=== PATIENT | female | born 1975 | race Caucasian/White ===

== ENCOUNTER → 2017-08-18 11:01 | Outpatient (CLI) | payer OTHER, SELFPAY ==
[2017-08-20 13:05] LABS: HPV Reflexed? NOT INDICATED
== END ==
PROVIDERS: Family Provider Family Medicine; PCP Family Medicine; Visit Provider Obstetrics & Gynecology
DX: Z12.4 Encounter for screening for malignant neoplasm of cervix (principal)
CPT/HCPCS: 88175; G0145

== ENCOUNTER → 2017-09-03 12:52 | Outpatient (CLI) | payer OTHER, SELFPAY ==
--- NOTE | 2017-09-03 12:55 | HPBI_ITS ---
MAMMOGRAPHY - BILATERAL DIAGNOSTIC REASON FOR EXAM: Female, 42 years old. LT BREAST PAIN X 1 MONTH NO SX PERTINENT HISTORY: Non-contributory. TECHNIQUE: Digital bilateral breast naif (3D mammographic acquisition) in the CC and MLO projections. 2-D mediolateral oblique (MLO) and craniocaudad (CC) views of both breasts were obtained. CAD: Full Field Digital Mammography with Computer Added Detection was performed. COMPARISON: Sep 09 2016 7:08am, Aug 16 2015 9:08am FINDINGS: Breast Composition: The breasts are heterogeneously dense, which may obscure small masses. There are no dominant masses or suspicious calcifications. No other significant abnormalities are identified. HPBI/DIAG MAMM W/CAD, BILAT IMPRESSION: Stable bilateral diagnostic mammogram. One year follow-up recommended. (A) ASSESSMENT CATEGORY: BIRADS Category 2: Benign. A letter regarding these results will be sent to the patient by the facility within 30 days. Approximately 10% of breast cancers are not detected by mammography. A normal mammogram should not delay biopsy of a clinically suspicious abnormality. Electronically Signed: Cathi Aparicio MD at 15:09 EDT Tel , Service support ,
--- NOTE | 2017-09-03 13:54 | US_ITS ---
STUDY: ULTRASOUND BREAST - LEFT REASON FOR EXAM: Female, 42 years old. left breast pain TECHNIQUE: Axial and longitudinal images of the LEFT breast were performed with a high resolution ultrasound transducer. COMPARISON: None. FINDINGS: LEFT Breast: There is no ultrasound abnormality in the area of tenderness at the inferior outer aspect of the left breast. US/Breast Limited Unilateral IMPRESSION: There is no ultrasound abnormality in the area of tenderness at the inferior outer aspect of the left breast. ASSESSMENT CATEGORY: BIRADS Category 1: Negative. A letter regarding these results will be sent to the patient by the facility within 30 days. Electronically Signed: Cathi Aparicio MD at 9:58 EDT Tel , Service support ,
== END ==
PROVIDERS: Family Provider Family Medicine; PCP Family Medicine; Visit Provider Obstetrics & Gynecology
DX: N63.20 Unspecified lump in the left breast, unspecified quadrant (principal); N64.4 Mastodynia
CPT/HCPCS: 76642; 77062; 77066; G0279

== ENCOUNTER → 2018-09-29 14:56 | Outpatient (CLI) | payer OTHER, SELFPAY ==
[2018-09-28 12:23] LABS: Hematocrit 39.9 % (37-47); Mean Corp Hgb Conc 32.6 g/gl (32-36); Mean Corpuscular Hgb 29.8 pg (27.0-32.0); Mean Corpuscular Volume 91.5 fL (81-99); Mean Platelet Vol. 9.9 fl (6.2-12.0); Platelet Count 317 K/mm3 (150-450); RBC Distribution Width SD 43.6 fl (35.1-43.9); Red Blood Count 4.36 M/mm3 (4.2-5.4); White Blood Count 9.8 K/mm3 (4.4-11.0)
[2018-09-28 12:26] LABS: Prothrombin Time (Protime)PT. 12.8 SECONDS (11.7-14.9)
[2018-09-28 12:27] LABS: Partial Thromboplast Time 27.1 Seconds (24.1-36.2)
[2018-09-28 12:29] LABS: Scan Indicated on CBC? Y/N NO
[2018-09-28 12:59] LABS: Internal QC Validated? YES +Cl - CLEAR BKGD; Pregnancy, Serum, hCG Quali. NEGATIVE Negative
--- OUTSIDE RECORDS SUMMARY | 2019-01-21 13:11 | XMS RPT_ITS | CCD ---
:1975 External Reference #:[id number] Author Organization [facility] Care Team Providers Name Role Phone LUCY ULRICH (MATERIAL CUTTER) Unavailable Unavailable MALDONADO, S (REHABILITATION TEACHER) Unavailable Unavailable MALDONADO, S (REHABILITATION TEACHER) Unavailable Unavailable [facility], (MATERIAL CUTTER) Unavailable Unavailable [facility], (MATERIAL CUTTER) Unavailable Unavailable [facility], (MATERIAL CUTTER) Unavailable Unavailable [facility] COURT, (MATERIAL CUTTER) Unavailable Unavailable MC COURT, (MATERIAL CUTTER) Unavailable Unavailable CAMPENSA, F. Unavailable Unavailable RAVEN Unavailable Unavailable ALRED Unavailable Unavailable RAVEN Unavailable Unavailable RAVEN Unavailable Unavailable RAVEN Unavailable Unavailable RAVEN Unavailable Unavailable RAVEN Unavailable Unavailable RAVEN Unavailable Unavailable RAVEN Unavailable Unavailable Allergies Reported Allergen Reaction(s) Severity Date of Onset Location LORazepam Translations: [ AOF 09-13-2015 - [facility] LORAZEPAM] [facility] Problems Active Problems Category Problem Name Status Date Location Cardiac dysrhythmias Palpitations Active 05-28-2018 - [facility] ([place] ([address]) Syncope Syncope and collapse Active 2018 - [facility] ([place] ([address]) Unclassified Unknown / UNK(Unknown) Active 12-30-2016 - [facility] (0000 0) Past or Other Problems Category Problem Name Status Date Location Abdominal pain Left lower quadrant Completed 12-30-2016 - [facility] pain [place] (0000 0) Malaise and fatigue Other fatigue Completed 12-22-2016 - [facility] (0000 0) Results Result Name Value Range Unit Interpretation Flag Date Location strep a rapid on 01-01-16 S. pyogenes Ag IA Ql see below Negative Normal 9 [facility] (Unsp spec) (04484) Comment: Result Comment: NEGATIVE (pr esumptive) for Group A Streptococcus antigen. Method: Immunochromatographi c assay. Confirmatory testing to foll ow. Confirmatory testing perform ed at an additional cost. Performed By: #### HEMDF, LA CT3, CMP3, QWAL #### [facility] [address] [place] [address] lactic acid on 2018 Lactate [Moles/Vol] 0.9 0.7-2.0 mmol/L Normal 12-28-2018 [facility] (53544) Comment: Performed By: #### LACT3, HE MOG, CMP3, QWAL #### [facility] [address] [place] [address] hemogram on 2018-12 Erythrocyte distribution 13.3 11.5-14.5 % Normal 12-28 [facility] width (RBC) [Ratio] (48825) Comment: Performed By: #### HEMDF, LA CT3, CMP3, QWAL #### [place] [address] [place] [address] Hematocrit (Bld) [Volume 39.8 35.0-47.0 % Normal 12-28 [facility] fraction] (09113) Comment: Performed By: #### HEMDF, LA CT3, CMP3, QWAL #### [facility] [address] [place] [address] Hemoglobin (Bld) 13.4 11.7-16.0 g/dL Normal 12-28-2018 [facility] [Mass/Vol] (37826) Comment: Performed By: #### HEMDF, LA CT3, CMP3, QWAL #### [facility] [address] [place] [address] MCH (RBC) [Entitic mass] 29.8 26.0-34.0 pg Normal 12-28 [facility] (04801) Comment: Performed By: #### HEMDF, LA CT3, CMP3, QWAL #### [facility] [address] [place] [address] MCHC (RBC) [Mass/Vol] 33.5 32.0-36.0 % Normal 12-29-19 19 [facility] (00610) Comment: Performed By: #### HEMDF, LA CT3, CMP3, QWAL #### [facility] [address] [place] [address] MCV (RBC) [Entitic vol] 88.9 79.0-98.0 fL Normal 2018 [facility] (28242) Comment: Performed By: #### HEMDF, LA CT3, CMP3, QWAL #### [facility] [address] [place] [address] Platelet mean volume (Bld) 8.2 7.4-10.4 fL Normal [facility] [Entitic vol] (71085 ) Comment: Performed By: #### HEMDF, LA CT3, CMP3, QWAL #### [facility] [address] [place] [address] Platelets (Bld) [#/Vol] 308 140-440 10*3/uL Normal 2018 [facility] (65667) Comment: Performed By: #### HEMDF, LA CT3, CMP3, QWAL #### [facility] [address] [place] [address] RBC (Bld) [#/Vol] 4.48 3.80-5.20 10*6/uL Normal 12-28-2018 [facility] (87424) Comment: Performed By: #### HEMDF, LA CT3, CMP3, QWAL #### [facility] [address] [place] [address] WBC (Bld) [#/Vol] 7.9 3.6-10.7 10*3/uL Normal 12-28-2018 [facility] (05451) Comment: Performed By: #### HEMDF, LA CT3, CMP3, QWAL #### [facility] [address] [place] [address] hcg qual preg on 01-01-16 hCG Qual Preg NEGATIVE Normal 12-28-2018 [facility] (03950) Comment: Result Comment: REF RANGE: Negative .... < 3 Questionable Rpt 48-72 Hr Positive ..... > 10 Performed By: #### HEMDF, LA CT3, CMP3, QWAL #### [facility] [address] [place] [address] group a strep screen by pcr on 2018-12-28 Group A Strep Group A Strep Screen by PCR --> Status: F Normal 12-28-2018 [facility] Screen by PCR NOT Detected (00 000) Expected Result: Not Detected Methodology - Real Time PCR (Cepheid) Expected Result: Not Detected Methodology - Real Time PCR (Cepheid) Comment: Performed By: #### HEMDF, LA CT3, CMP3, QWAL #### [employer] [facility] [address] [place] [address] ct soft tissue neck w/ contrast on 2018-12-28 CT Soft Tissue Patient Name: LILI CONCEPCION 12-28-2018 [facility] Contents First Neck w/ System Contrast (0 0000) CT Exam Date/Time 12/28/2018 10:30:[address] Soft Tissue Neck w/ Contrast Ordering Physician DARIAN SHARMA, ROSMERY Dillard Accession Number [id number] CPT4 Codes 44352 (), Q9967 (CT ISOVUE 370MG/[id number]) Reason For Exam right sided swelling concern for abscess Report Examination: CT soft tissue neck Clinical Indication: Right-sided swelling, concern for abscess Comparison: None Findings: Serial axial [address] images were obtained after administrati on of 75 mL of Isovue-370 IV contrast. Examination was viewed in multiple w indows. Evaluation of the base of the brain demonstrates no abnorm al enhancement or gross fluid collection. Paranasal sinuses appear well pneuma tized as do the visualized mastoids. The parotid, submandibular, and other major salivary glands are unremarkable demonstrate no evidence of sialolithiasis, surrounding infla mmation or significant asymmetry. Cutaneous marker placed in the region of interest near the right mandibular angle. Deep to this finding is a prominent lymph node measur ing 1.8 x 0.8 cm, at the upper limits of normal for this location. No evidence of abscess. Other tiny bilateral cervical chain lymph nodes. There is no evidence o f chantale lymphadenopathy within the cervical chain anteriorly or post eriorly or within the supraclavicular regions. There is a small subcutaneous l ymph node seen superficial to the left trapezius muscle measuring 6 x 4 mm. There is no enlargement of the adenoidal or pharyngeal tonsi ls. Nasopharynx, oropharynx, and hypopharynx is within normal limits. There i s no significant airway narrowing. There is no evidence of abscess formation. The thyroid gland is normal in size and configuration and de monstrates no nodularity. Mild pleural thickening in the lung apices. Impression: Prominent borderline size 1.8 x 0.8 cm lymph node in the r egion of interest on the right just posterior to the angle of the mandible. No de finite lymphadenopathy. No evidence of abscess. Report Dictated on Final Dictating Physician: MD BROUSSARD ANTHONY J Signed Date and Time: 12/28/2018 12:57 pm Signed by: MD BROUSSARD ANTHONY J Transcribed Date and Time: 12/28/2018 12:58 comp metabolic panel on 2018-12-28 Calcium [Mass/Vol] 9.6 8.4-10.4 mg/dL Normal 12-28-2018 [facility] (87774) Comment: Performed By: #### HEMDF, LA CT3, CMP3, QWAL #### [facility] [address] [place] [address] ALP [Catalytic activity/Vol] 75 38-126 U/L Normal 0 12-28-2018 [facility] (91785) Comment: Performed By: #### HEMDF, LA CT3, CMP3, QWAL #### [facility] [address] [place] [address] ALT [Catalytic activity/Vol] 29 13-69 U/L Normal 0 12-28-2018 [facility] (17503) Comment: Performed By: #### HEMDF, LA CT3, CMP3, QWAL #### [facility] [address] [place] [address] Anion gap [Moles/Vol] 9 Normal 12-29-19 19 [facility] (80039) Comment: Performed By: #### HEMDF, LA CT3, CMP3, QWAL #### [facility] [address] [place] [address] AST [Catalytic activity/Vol] 28 15-46 U/L Normal 0 12-28-2018 [facility] (81341) Comment: Performed By: #### HEMDF, LA CT3, CMP3, QWAL #### [facility] [address] [place] [address] Bilirubin [Mass/Vol] 0.6 0.2-1.3 mg/dL Normal 9 [facility] (46297) Comment: Performed By: #### HEMDF, LA CT3, CMP3, QWAL #### [facility] [address] [place] [address] CO2 [Moles/Vol] 25 22-30 mmol/L Normal 12-28-2018 [facility] (97646) Comment: Performed By: #### HEMDF, LA CT3, CMP3, QWAL #### [facility] [address] [place] [address] Creatinine [Mass/Vol] 0.59 0.52-1.25 mg/dL Normal 12-29-19 19 [facility] (28850) Comment: Performed By: #### HEMDF, LA CT3, CMP3, QWAL #### [facility] [address] [place] [address] GFR/1.73 sq M > 60.0 >60 mL/min/{1.73_m2} Normal 9 [facility] predicted among Syst em (75558) blacks MDRD (S/P/Bld) [Vol rate/Area] Comment: Performed By: #### HEMDF, LA CT3, CMP3, QWAL #### [facility] [address] [place] [address] GFR/1.73 sq M > 60.0 >60 mL/min/{1.73_m2} Normal 9 [facility] predicted among Syst em (45205) non-blacks MDRD (S/P/Bld) [Vol rate/Area] Comment: Result Comment: Source- MDRD equation with creatinine calibration to IDMS(NKDEP) eGFR not recommended for maria esther g dose adjustment Performed By: #### HEMDF, LA CT3, CMP3, QWAL #### [facility] [address] [place] [address] Glucose [Mass/Vol] 110 70-100 mg/dL High 12-28-2018 [facility] (69394) Comment: Performed By: #### HEMDF, LA CT3, CMP3, QWAL #### [facility] [address] [place] [address] Protein [Mass/Vol] 8.0 6.3-8.2 g/dL Normal 12-28-2018 [facility] (04544) Comment: Performed By: #### HEMDF, LA CT3, CMP3, QWAL #### [facility] [address] [place] [address] Urea nitrogen [Mass/Vol] 18 7-20 mg/dL Normal 12-28 [facility] (34032) Comment: Performed By: #### HEMDF, LA CT3, CMP3, QWAL #### [facility] [address] [place] [address] Potassium [Moles/Vol] 3.8 3.5-5.1 mmol/L Normal 12-29-19 19 [facility] (75717) Comment: Performed By: #### HEMDF, LA CT3, CMP3, QWAL #### [facility] [address] [place] [address] Albumin [Mass/Vol] 4.4 3.5-5.0 g/dL Normal 12-28-2018 [facility] (41818) Comment: Performed By: #### HEMDF, LA CT3, CMP3, QWAL #### [facility] [address] [place] [address] Chloride [Moles/Vol] 106 98-107 mmol/L Normal 9 [facility] (71148) Comment: Performed By: #### HEMDF, LA CT3, CMP3, QWAL #### [facility] [address] [place] [address] Sodium [Moles/Vol] 140 135-145 mmol/L Normal 12-28-2018 [facility] (27886) Comment: Performed By: #### HEMDF, LA CT3, CMP3, QWAL #### [facility] [address] [place] [address] ts gel on 2018-10-14 3 TS GEL ABO Group: Normal 11-04-2018 [facility] (04649) A Rh, Gel: POS Antibody Screen Gel: NEG Comment: Performed By: #### TSGL #### [employer] [facility] [address] [place] [address] surgical pathology on 2018-11-04 Surgical [id number] Normal 11-04-2018 [facility] Pathology [facility] System PATHOLOGY AND (62655 ) LABORATORY MEDICINE [address] [place] [address] FINAL SURGICAL PATHOLOGY REPORT NAME: LILI CONCEPCION : 1975 43 [facility] [id number] LOCATION: [place] [address] PROCEDURE 11/04/2018 DATE: SURGEON: GIRMA HARMON MD RECEIVED 11/04/2018 DATE: ATTENDING: GIRMA HARMON MD REPORT DATE: 11/10/2018 COPIES TO: DIAGNOSIS: HYSTERECTOMY - CERVIX WITH CHRONIC CERVICITIS PROLIFERATIVE ENDOMETRIUM MYOMETRIUM WITH ADENOMYOSIS. SMT/SMT Signature> Heide JENNINGS M.D. CLINICAL INFORMATION: Dysmenorrhea SPECIMEN: UTERUS, WITH/WITHOUT TUBES AND OVARIES GROSS DESCRIPTION: Cervix and uterus Received in formalin is a uterus with attached cervix. The u terus is pink-parnell, glistening, and has areas of operative change. It measures 5.5 x 4 x 2.4 cm and weighs 30 grams. The cervix is pink-parnell , smooth, glistening, and measures 3.3 x 3 cm and contains a partially gapping, patent os. The endocervical canal measures 2 cm in length an d the endometrial cavity measures 2.5 x 1 cm. The endometrium nika ures less than 1 mm in thickness and the myometrium at its thickest me asures 1.2 cm in thickness. Further sectioning does not reveal any hellen sly identifiable abnormalities in the myometrium. Paraprofessional Aide sections are submitted. Cassette summary: 1 anterior cervix; 2 posterior cervix; 3 i s two full thickness sections of anterior endomyometrium; 4 is posterio r endomyometrium. (bits ss, 4) ASJ/JAF Disclaimer: The following statement applies to all immunohistochemistry, in situ hybridization, molecular studi es, and immunofluorescence testing. The use of one or more reagents in the above tests is regula ana as an analyte specific reagent (ASR). These tests were developed a nd their performance characteristics determined by the clinical labor atories of [facility]. They have not been cleared by the [place] Fo od and Drug Administration (FDA). The FDA has determined that such clear ance or approval is not necessary. All the above immunostains were performed on paraffin embedd ed tissue. Appropriate positive and negative controls (where applicable ) were run in parallel with the patient's specimen; these controls show ed expected staining pattern, with acceptable intensity of staining. Immunohistochemical assays have not been validated on decalc ified tissues. Results should be interpreted with caution given th e raised possibility of false negativity on decalcified specimens. Professional Performing Location: [address] [address]. DEPARTMENT OF PATHOLOGY AND LABORATORY MEDICINE [place], [place] [address] op note on Op Note PATIENT: LILI CONCEPCION [facility] (49583) ADMISSION DATE: 11/04/2018 SURGERY DATE: 11/04/2018 DATE OF : 1975 AGE: 43 ADMITTING PHYSICIAN: Girma Harmon MD ATTENDING PHYSICIAN: Girma Harmon MD DICTATING PHYSICIAN: Girma Harmon MD OPERATIVE RECORD Procedure: TOTAL ROBOTIC HYSTERECTOMY. Preoperative Diagnosis: Severe dysmenorrhea, status post endometrial. Postoperative Diagnosis: Severe dysmenorrhea, status post endometrial. Anesthesia: General. Description of Findings: The patient had bilateral normal ov rob, no tubal tissue was noted. Description of Procedure: The patient was identified and bro ught to the operating room and after administration of general anest hesia, underwent a sterile prep and drape in the low lithotomy posi tion. Compression stockings on and running. Time-out was performed . Antibiotics were given. A manipulator was placed in the uter us with a RUPALI ring around the cervix and a Vazquez catheter in the bladd er. Using a knife, a small incision was made in the infraumbilical fol d and using the direct technique, a non-bladed da Zenaida trocar was inserted atraumatically in the abdominal cavity. The abdomen was insu fflated with CO2 and under direct vision, blunt da Zenaida ports were placed in right and left lower quadrant. Trendelenburg was used to dis place the bowel up out of the pelvis and the da Zenaida was docked. The proximal ovarian ligaments and round ligaments were coagulated and di vided allowing the bladder flap to be dissected inferiorly, the ut erine vessels were skeletonized, coagulated, and divided as were t he upper cardinal ligaments down to the top of the RUPALI ring where 360 degree colpotomy incision was then made. The uterus and cervix were removed out through the vagina. The cuff was closed using a running 0 V-Loc. The pelvis was irrigated. Hemostasis was noted. All instrume nts were removed from the abdominal cavity. The da Zenaida was undocked . The trocars were removed. The defects in the skin were closed wi th subcuticular 4-0 Monocryl and Dermabond. All instruments wer e removed from the bladder and the vagina and she was taken to the rec overy room in stable condition with a minimal EBL. [facility] Job ID: [id number] Girma Harmon MD DOD:11/04/2018 10:09 A SA/michealk DOT:11/04/2018 11:12 A Job Number: [id number] Document Number: [id number] cc: Girma Harmon MD [address] [facility] [address] hcg,urine qual on HCG.beta subunit Negative Negative Normal 11-04-2018 [facility] ( test) Ql (U) (84215) Comment: Result Comment: is the most common reason for HCG in urine, although choriocarcinoma, hydatidifor m mole, and certain nontropho- blastic malignancies also re sult in detectable urinary HCG levels. Sensitivity = 20mIU/ mL. Performed By: #### HCGUR ### # [address] [address] culture urine on 31-08-26 CULTURE URINE CULTURE URINE --> Status: F Normal 09-08-2018 [facility] Normal urogenital parsia present. (94135) Comment: Order Comment: Specimen Sour ce Comment:Urine, clean catch Performed By: #### C/UR #### [facility] [address] [place] [address] us pelvis ta/tv on 2018-09-07 US Pelvis TA/TV Patient Name: LILI CONCEPCION al 09-07-2018 [facility] (94522) Ultrasound Exam Date/Time 09/07/2018 18:55:00 EDT Exam US Pelvis TA/TV Ordering Physician DAVID BARROW BETH A. Accession Number [id number] CPT4 Codes 60693 (US Pelvis TA/TV), 61116 (US Transvaginal) Reason For Exam right lower abd pain with adenxal pain right Report Ultrasound pelvis HISTORY: Right lower quadrant pain COMPARISON: CT 09/07/2018 Protocol: Transabdominal and endovaginal scanning was perfor med Uterus measures 5.4 x 2.7 x 3.6 cm. Uterus has a heterogen eous echotexture. There are a few subcentimeter rounded hypoechoic areas in th e uterus which are likely fibroids. Endometrial stripe has a normal thickness o f 4 mm. There is trace fluid in the endometrial cavity. No free fluid in the cul-de-sac. Right ovary measures 2.5 x 1.7 x 1.6 cm. Left ovary measures 2.4 x 1.4 x 2.3 cm. The ovaries have a normal appearance and blood flow. IMPRESSION: A few subcentimeter rounded hypoechoic areas in the uterus which are likely fibroids. There is trace fluid in the endometrial cavity. Report Dictated on Final Dictating Physician: MD AMBROSE MALAY Signed Date and Time: 09/07/2018 8:12 pm Signed by: MD AMBROSE MALAY Transcribed Date and Time: 09/07/2018 8:13 urinalysis,microscopic on 2018-09-07 Bacteria LM.HPF (Urine sed) 1 + Negative Normal [facility] [#/Area] (48763) Comment: Performed By: #### UAMAC, UA CHAKA #### [facility] Contents [facility] [address] [place] [address] Cast, Hyaline 3 0-1 /[LPF] Normal 09-07-2018 [facility] (99724) Comment: Performed By: #### UAMAC, UA CHAKA #### [facility] [address] [place] [address] Epithelial cells LM.HPF TRACE 3-5 Normal 2018 [facility] (Urine sed) [#/Area] (91936) Comment: Performed By: #### UAMAC, UA CHAKA #### [facility] [address] [place] [address] RBC LM.HPF (Urine sed) 5 0-2 /[HPF] Normal 019 [facility] [#/Area] (03848) Comment: Performed By: #### UAMAC, UA CHAKA #### [facility] [address] [place] [address] WBC LM.HPF (Urine sed) 6 0-5 /[HPF] Normal 019 [facility] [#/Area] (89929) Comment: Performed By: #### UAMAC, UA CHAKA #### [facility] [address] [place] [address] urinalysis,macro on 2018-09-07 Appearance (U) CLEAR Clear Normal 09-07-2018 [facility] (06088) Comment: Performed By: #### UAMAC, UA CHAKA #### [facility] [address] [place] [address] Bilirubin,Ur NEG Negative Normal 09-07-2018 [facility] (02454) Comment: Performed By: #### UAMAC, UA CHAKA #### [facility] [address] [place] [address] Color (U) YELLOW Lt. Yellow Normal 09-07-[address] [facility] (56652) Comment: Performed By: #### UAMAC, UA CHAKA #### [facility] [address] [place] [address] Glucose Ql (U) NEG Negative Normal 09-07-2018 [facility] (05329) Comment: Performed By: #### UAMAC, UA CHAKA #### [facility] [address] [place] [address] Ketone,Urine NEG Negative Normal 09-07-2018 [facility] (35940) Comment: Performed By: #### UAMAC, UA CHAKA #### [facility] [address] [place] [address] Nitrite Ql (U) NEG Negative Normal 09-07-2018 [facility] (73038) Comment: Performed By: #### UAMAC, UA CHAKA #### [facility] [address] [place] [address] Occult Blood,Ur 1 + Negative {RBC}/uL Normal 09-07-2018 [facility] (61440) Comment: Performed By: #### UAMAC, UA CHAKA #### [facility] [address] [place] [address] pH (U) 6.5 5.0-8.0 Normal 09-07-2018 [facility] (88866) Comment: Performed By: #### UAMAC, UA CHAKA #### [facility] [address] [place] [address] Protein (U) [Mass/Vol] NEG Negative mg/dL Normal 019 [facility] (95649) Comment: Performed By: #### UAMAC, UA CHAKA #### [facility] [address] [place] [address] Specific Tabor,Urine 1.017 1.005-1.030 Normal 09-07 [facility] (26364) Comment: Performed By: #### UAMAC, UA CHAKA #### [facility] [address] [place] [address] Urobilinogen Qn (U) 0.2 0-1 mg/dL Normal 09-07-2018 [facility] (49431) Comment: Performed By: #### UAMAC, UA CHAKA #### [facility] [address] [place] [address] WBC (Bld) [#/Vol] TRACE Negative Normal 09-07-2018 [facility] (39078) Comment: Performed By: #### UAMAC, UA CHAKA #### [facility] [address] [place] [address] lactic acid on 2018 Lactate [Moles/Vol] 0.7 0.7-2.0 mmol/L Normal 09-07-2018 [facility] (55230) Comment: Performed By: #### HEMDF, LA CT3, CMP3, QWAL #### [facility] [address] [place] [address] hemogram w/ autodiff on 2018-09-07 Abs Baso Cnt 0.0 0.0-0.2 10*3/uL Normal 09-07-2018 [facility] (97593) Comment: Performed By: #### HEMDF, LA CT3, CMP3, QWAL #### [facility] [address] [place] [address] Abs Neutrophile Cnt 3.6 1.8-7.0 10*3/uL Normal 09-07-2018 [facility] (45316) Comment: Performed By: #### HEMDF, LA CT3, CMP3, QWAL #### [facility] [address] [place] [address] Basophils/100 WBC (Bld) 0.5 0.0-2.0 % Normal 2018 [facility] (65228) Comment: Performed By: #### HEMDF, LA CT3, CMP3, QWAL #### [facility] [address] [place] [address] Eosinophils (Bld) [#/Vol] 0.1 0.0-0.5 10*3/uL Normal 08-14 [facility] (66348) Comment: Performed By: #### HEMDF, LA CT3, CMP3, QWAL #### [facility] [address] [place] [address] Eosinophils/100 WBC (Bld) 1.7 1.0-6.0 % Normal 08-14 [facility] (88218) Comment: Performed By: #### HEMDF, LA CT3, CMP3, QWAL #### [facility] [address] [place] [address] Erythrocyte distribution 12.9 11.5-14.5 % Normal 09-07 [facility] width (RBC) [Ratio] (91294) Comment: Performed By: #### HEMDF, LA CT3, CMP3, QWAL #### [facility] [address] [place] [address] Granulocytes/100 WBC (Bld) 55.6 40.0-80.0 % Normal [facility] (78602) Comment: Performed By: #### HEMDF, LA CT3, CMP3, QWAL #### [facility] [address] [place] [address] Hematocrit (Bld) [Volume 36.3 35.0-47.0 % Normal 09-07 [facility] fraction] (59130) Comment: Performed By: #### HEMDF, LA CT3, CMP3, QWAL #### [facility] [address] [place] [address] Hemoglobin (Bld) 12.2 11.7-16.0 g/dL Normal 09-07-2018 [facility] [Mass/Vol] (38244) Comment: Performed By: #### HEMDF, LA CT3, CMP3, QWAL #### [facility] [address] [place] [address] Lymphocytes (Bld) [#/Vol] 2.3 1.0-4.3 10*3/uL Normal 08-14 [facility] (11545) Comment: Performed By: #### HEMDF, LA CT3, CMP3, QWAL #### [facility] [address] [place] [address] Lymphocytes/100 WBC (Bld) 36.4 20.0-40.0 % Normal 08-14 [facility] (37663) Comment: Performed By: #### HEMDF, LA CT3, CMP3, QWAL #### [facility] [address] [place] [address] MCH (RBC) [Entitic mass] 30.3 26.0-34.0 pg Normal 09-07 [facility] (38903) Comment: Performed By: #### HEMDF, LA CT3, CMP3, QWAL #### [facility] [address] [place] [address] MCHC (RBC) [Mass/Vol] 33.5 32.0-36.0 % Normal 09-08-19 19 [facility] (46222) Comment: Performed By: #### HEMDF, LA CT3, CMP3, QWAL #### [facility] [address] [place] [address] MCV (RBC) [Entitic vol] 90.6 79.0-98.0 fL Normal 2018 [facility] (16242) Comment: Performed By: #### HEMDF, LA CT3, CMP3, QWAL #### [facility] [address] [place] [address] Monocytes (Bld) [#/Vol] 0.4 0.0-0.8 10*3/uL Normal 2018 [facility] (35719) Comment: Performed By: #### HEMDF, LA CT3, CMP3, QWAL #### [facility] [address] [place] [address] Monocytes/100 WBC (Bld) 5.8 2.0-10.0 % Normal 2018 [facility] (85305) Comment: Performed By: #### HEMDF, LA CT3, CMP3, QWAL #### [facility] [address] [place] [address] Platelet mean volume (Bld) 7.7 7.4-10.4 fL Normal [facility] [Entitic vol] (36728 ) Comment: Performed By: #### HEMDF, LA CT3, CMP3, QWAL #### [facility] [address] [place] [address] Platelets (Bld) [#/Vol] 266 140-440 10*3/uL Normal 2018 [facility] (12858) Comment: Performed By: #### HEMDF, LA CT3, CMP3, QWAL #### [facility] [address] [place] [address] RBC (Bld) [#/Vol] 4.01 3.80-5.20 10*6/uL Normal 09-07-2018 [facility] (89526) Comment: Performed By: #### HEMDF, LA CT3, CMP3, QWAL #### [facility] [address] [place] [address] WBC (Bld) [#/Vol] 6.4 3.6-10.7 10*3/uL Normal 09-07-2018 [facility] (37392) Comment: Performed By: #### HEMDF, LA CT3, CMP3, QWAL #### [facility] [address] [place] [address] hcg qual preg on 31-08-25 hCG Qual Preg NEGATIVE Normal 09-07-2018 [facility] (07686) Comment: Result Comment: REF RANGE: Negative .... < 3 Questionable Rpt 48-72 Hr Positive ..... > 10 Performed By: #### HEMDF, LA CT3, CMP3, QWAL #### [facility] [address] [place] [address] ct abdomen/pelvis w/ contrast on 2018-09-07 CT Abdomen/Pelvis Patient Name: LILI CONCEPCION 09-07-2018 [id number] Exam Date/Time 09/07/2018 19:28:[address] Abdomen/Pelvis w/ IV Contrast (IV Onl Ordering Physician DAVID BARROW BETH A. Accession Number [id number] CPT4 Codes 79433 (CT Abdomen/Pelvis w/ IV Contrast (IV Onl), Q9967 (CT ISOVUE [id number]/[id number]) Reason For Exam right lower quad pain Report CT ABDOMEN AND PELVIS WITH CONTRAST CLINICAL INDICATION: right lower quad pain TECHNIQUE: CT scan of the abdomen and pelvis, with IV cont rast. Multiplanar reformations. COMPARISON: None. FINDINGS: Abdomen: Visualized lung bases grossly unremarkable. Gallbladder surgically absent, with biliary duct prominence probably postsurgical. Liver without significant abnormality. Spleen without significant abnormality. Pancreas without significant abnormality. Kidneys without significant abnormality. Adrenal glands without significant abnormality. Pelvis: Incomplete or nondistention and variable bowel wall/fold thi ckening in the descending and rectosigmoid colon, but without significant m esenteric fat stranding. Remainder of bowel grossly unremarkable. Appendix surgically absent. No significant, free peritoneal fluid or apparent adenopathy . Abdominal aorta is nonaneurysmal. Small, cystic focus in right adnexa measuring approximately 1 cm may represent follicular change versus focal, fluid-filled bowel loop. Axial skeleton grossly unremarkable. IMPRESSION: 1. Findings which may be due to incomplete or nondistention versus nonspecific postinflammatory change in the left colon. Follow-up may be warranted. 2. Postsurgical change. Report Dictated on Workstation: COLEMAN Final Dictating Physician: MD TERRY WENDELL Signed Date and Time: 09/07/2018 7:43 pm Signed by: MD TERRY WENDELL Transcribed Date and Time: 09/07/2018 7:44 comp metabolic panel on 2018-09-07 Calcium [Mass/Vol] 9.4 8.4-10.4 mg/dL Normal 09-07-2018 [facility] (64372) Comment: Performed By: #### HEMDF, LA CT3, CMP3, QWAL #### [facility] [address] [place] [address] Glucose [Mass/Vol] 107 70-100 mg/dL High 09-07-2018 [facility] (80107) Comment: Performed By: #### HEMDF, LA CT3, CMP3, QWAL #### [facility] [address] [place] [address] ALP [Catalytic activity/Vol] 49 38-126 U/L Normal 0 09-07-2018 [facility] (73611) Comment: Performed By: #### HEMDF, LA CT3, CMP3, QWAL #### [facility] [address] [place] [address] ALT [Catalytic activity/Vol] 38 13-69 U/L Normal 0 09-07-2018 [facility] (59863) Comment: Performed By: #### HEMDF, LA CT3, CMP3, QWAL #### [facility] [address] [place] [address] Anion gap [Moles/Vol] 11 Normal 09-08-19 19 [facility] (37209) Comment: Performed By: #### HEMDF, LA CT3, CMP3, QWAL #### [facility] [address] [place] [address] AST [Catalytic activity/Vol] 19 15-46 U/L Normal 0 09-07-2018 [facility] (15658) Comment: Performed By: #### HEMDF, LA CT3, CMP3, QWAL #### [facility] [address] [place] [address] Bilirubin [Mass/Vol] 0.3 0.2-1.3 mg/dL Normal 9 [facility] (78495) Comment: Performed By: #### HEMDF, LA CT3, CMP3, QWAL #### [facility] [address] [place] [address] CO2 [Moles/Vol] 29 22-30 mmol/L Normal 09-07-2018 [facility] (73145) Comment: Performed By: #### HEMDF, LA CT3, CMP3, QWAL #### [employer] [facility] [address] [place] [address] Creatinine [Mass/Vol] 0.55 0.52-1.25 mg/dL Normal 09-08-19 19 [facility] (86499) Comment: Performed By: #### HEMDF, LA CT3, CMP3, QWAL #### [employer] [facility] [address] [place] [address] GFR/1.73 sq M > 60.0 >60 mL/min/{1.73_m2} Normal 9 [facility] Contents First predicted among Syst em (44301) blacks MDRD (S/P/Bld) [Vol rate/Area] Comment: Performed By: #### HEMDF, LA CT3, CMP3, QWAL #### [employer] [facility] [address] [place] [address] GFR/1.73 sq M > 60.0 >60 mL/min/{1.73_m2} Normal 9 [facility] Contents First predicted among Syst em (52866) non-blacks MDRD (S/P/Bld) [Vol rate/Area] Comment: Result Comment: Source- MDRD equation with creatinine calibration to IDMS(NKDEP) eGFR not recommended for maria esther g dose adjustment Performed By: #### HEMDF, LA CT3, CMP3, QWAL #### [employer] [facility] [address] [place] [address] Protein [Mass/Vol] 7.2 6.3-8.2 g/dL Normal 09-07-2018 [facility] (10805) Comment: Performed By: #### HEMDF, LA CT3, CMP3, QWAL #### [employer] [facility] [address] [place] [address] Urea nitrogen [Mass/Vol] 14 7-20 mg/dL Normal 09-07 [facility] (59076) Comment: Performed By: #### HEMDF, LA CT3, CMP3, QWAL #### [employer] [facility] [address] [place] [address] Potassium [Moles/Vol] 3.7 3.5-5.1 mmol/L Normal 09-08-19 19 [facility] (31044) Comment: Performed By: #### HEMDF, LA CT3, CMP3, QWAL #### [facility] [address] [place] [address] Albumin [Mass/Vol] 4.2 3.5-5.0 g/dL Normal 09-07-2018 [facility] (08980) Comment: Performed By: #### HEMDF, LA CT3, CMP3, QWAL #### [facility] [address] [place] [address] Chloride [Moles/Vol] 100 98-107 mmol/L Normal 9 [facility] (75056) Comment: Performed By: #### HEMDF, LA CT3, CMP3, QWAL #### [facility] [address] [place] [address] Sodium [Moles/Vol] 140 135-145 mmol/L Normal 09-07-2018 [facility] (87864) Comment: Performed By: #### HEMDF, LA CT3, CMP3, QWAL #### [facility] [address] [place] [address] tsh on 2018-05-28 Thyrotropin Qn 1.22 0.36-3.74 mcIU/mL Normal 05-28-2018 [facility] ([place]) (0000 0) Comment: Performed By: #### KRISTIN, UAMIC AO ####[address] [place], [place] [address] cbc on 2018 Erythrocyte distribution 13.5 11.5-14.5 % Normal 05-12 [facility] width Auto Ratio (RBC) [facility] ([place]) (95443) Comment: Performed By: #### UA, UAMIC AO ####[address] [place], [place] [address] Hematocrit Auto Volume 40.4 37.0-47.0 % Normal 018 [facility] Fraction (Bld) ([place]) (21817) Comment: Performed By: #### UA, UAMIC AO ####[address] [place], [place] [address] Hemoglobin mass conc 13.1 12.0-16.0 G/dL Normal 8 [facility] ([place]) (43978) Comment: Performed By: #### UA, UAMIC AO ####[address] [place], [place] [address] MCH Auto Entitic mass 29.2 27.0-31.2 pg Normal 05-12-20 18 [facility] (RBC) ([place]) (0000 0) Comment: Performed By: #### UA, UAMIC AO ####[address] [place], [place] [address] MCHC Auto mass conc 32.3 33.0-37.0 G/dL Low 2018 [facility] (RBC) ([place]) (0000 0) Comment: Performed By: #### UA, UAMIC AO ####[address] [place], [place] [address] MCV Auto Entitic volume 90.2 80.0-94.0 fL Normal 2017 [facility] (RBC) ([place]) (0000 0) Comment: Performed By: #### UA, UAMIC AO ####[address] [place], [place] [address] Platelet mean volume Auto 8.6 7.4-10.4 fL Normal - [facility] Entitic volume ([facility]) ([place]) (60514) Comment: Performed By: #### UA, UAMIC AO ####[address] [place], [place] [address] Platelets Auto #/vol 334 130-400 10 3/mcL Normal 8 [facility] ([facility] ([place]) (16125) Comment: Performed By: #### UA, UAMIC AO ####[address] [place], [place] [address] RBC Auto #/vol 4.48 4.20-5.40 10 6/mcL Normal 2018 [facility] ([place]) (69239) Comment: Performed By: #### UA, UAMIC AO ####[address] [place], [place] [address] WBC Auto #/vol 8.00 4.60-10.80 10 3/mcL Normal 2018 [facility] ([place]) (63576) Comment: Performed By: #### UA, UAMIC AO ####[address] [place], [place] [address] bmp on 2018 Calcium mass conc 9.1 8.4-10.2 mg/dL Normal 2018 [facility] ([place]) (65182) Comment: Performed By: #### UA, UAMIC AO ####[address] [place], [place] [address] Chloride molar conc 104 98-107 mmol/L Normal 2018 [facility] ([place]) (0000 0) Comment: Performed By: #### UA, UAMIC AO ####[address] [place], [place] [address] CO2 molar conc 28 22-29 mmol/L Normal 2018 [facility] ([place]) (81564) Comment: Performed By: #### UA, UAMIC AO ####[address] [place], [place] [address] Creatinine mass conc 0.60 0.55-1.02 mg/dL Normal 8 [facility] ([place]) (0000 0) Comment: Performed By: #### UA, UAMIC AO ####[address] [place], [place] [address] Electrolyte Balance 8.0 mEq/L Normal 2018 [facility] ([place]) (00602) Comment: Performed By: #### UA, UAMIC AO ####[address] [place], [place] [address] Glucose mass conc 101 70-105 mg/dL Normal 2018 [facility] ([place]) (57749) Comment: Performed By: #### UA, UAMIC AO ####[address] [place], [place] [address] Potassium molar conc 4.6 3.5-5.1 mmol/L Normal 8 [facility] ([place]) (0000 0) Comment: Performed By: #### UA, UAMIC AO ####[address] [place], [place] [address] Sodium molar conc 140 136-145 mmol/L Normal 2018 A Replaced by [facility] ([place]) (96874) Comment: Performed By: #### UA, UAMIC AO ####[address] [place], [place] [address] Urea nitrogen mass conc 17 7-18 mg/dL Normal 2017 [facility] ([place]) (0000 0) Comment: Performed By: #### UA, UAMIC AO ####[address] [place], [place] [address] Urea nitrogen/Creatinine mass 28 7-27 ratio High 2018 [facility] ([place]) (25517) Comment: Performed By: #### UA, UAMIC AO ####[address] [place], [place] [address] .neuabs on Neutrophil, Absolute 5.20 2.85-6.16 10 3/mcL Normal 8 [facility] ([place]) (42603) Comment: Performed By: #### UA, UAMIC AO ####[address] [place], [place] [address] .gfr on 2018 GFR 132 ml/min/1.73sqm Normal 04-16 [facility] ([place]) (0000 0) Comment: Result Comment: GFR Populati on mean for , Non- Americans Ages 20-29 = 116 m L/min/1.73 sq.m. Ages 30-39 = 107 mL/min/1.73 sq.m. Ages 40-49 = 99 mL/min /1.73 sq.m. Ages 50-59 = 93 mL/min/1.73 sq.m. Ages 60-69 = 85 mL/min/1.73 sq.m. Ages 70+ = 75 mL/min/1.73 sq.m.Chronic Kidney Disease: Less than 60 mL/min/1.73 square metersEnd Stage Renal Disease: Less than 15 mL/min /1.73 square meters Performed By: #### UA, UAMIC AO ####[address] [place], [place] [address] GFR Non- 109 ml/min/1.73sqm Normal 2018 [facility] ([place]) (03595) Comment: Result Comment: GFR Populati on mean for , Non- Americans Ages 20-29 = 116 m L/min/1.73 sq.m. Ages 30-39 = 107 mL/min/1.73 sq.m. Ages 40-49 = 99 mL/min /1.73 sq.m. Ages 50-59 = 93 mL/min/1.73 sq.m. Ages 60-69 = 85 mL/min/1.73 sq.m. Ages 70+ = 75 mL/min/1.73 sq.m.Chronic Kidney Disease: Less than 60 mL/min/1.73 square metersEnd Stage Renal Disease: Less than 15 mL/min /1.73 square meters Performed By: #### UA, UAMIC AO ####[address] [place], [place] [address] .auto diff on 05-12 Ammonia mass conc 0.40 0.15-1.00 10 3/mcL Normal 2018 A [facility] () [facility] ([place]) (08040) Comment: Performed By: #### UA, UAMIC AO ####[address] [place], [place] [address] Basophils Auto #/vol 0.00 0.00-0.19 10 3/mcL Normal 8 [facility] (d) [facility] ([place]) (51023) Comment: Performed By: #### UA, UAMIC AO ####[address] [place], [place] [address] Basophils/100 WBC Auto (d) 0.3 0.0-2.5 % Normal 1 07-12-2017 [facility] ([place]) (0000 0) Comment: Performed By: #### UA, UAMIC AO ####[address] [place], [place] [address] Eosinophils Auto #/vol 0.10 0.00-0.40 10 3/mcL Normal 018 [facility] 1928[facility]1983) (57537) Comment: Performed By: #### UA, UAMIC AO ####[address] [place], [place] [address] Eosinophils/100 WBC Auto 1.1 0.0-7.0 % Normal 05-12 [facility] ([place]) (08848) Comment: Performed By: #### UA, UAMIC AO ####[address] [place], [place] [address] Lymphocytes Auto #/vol 2.20 0.77-3.85 10 3/mcL Normal 018 [facility]) (32530) Comment: Performed By: #### UA, UAMIC AO ####[address] [place], [place] [address] Lymphocytes/100 WBC Auto 28.3 10.0-50.0 % Normal 05-12 [facility]) (08073) Comment: Performed By: #### UA, UAMIC AO ####[address] [place], [place] [address] Monocytes/100 WBC Auto ([facility]) 5.5 1.7-13.0 % Normal 1 07-12-2017 [facility] ([place]) (66739) Comment: Performed By: #### UA, UAMIC AO ####[address] [place], [place] [address] Neutrophils/100 WBC Auto 64.8 37.0-80.0 % Normal 05-12 [facility] ([place]) (05207) Comment: Performed By: #### UA, UAMIC AO ####[address] [place], [place] [address] xr chest 2 views on 2018-03-18 XR CHEST 2 VIEWS ORIGINALXR CHEST 2 VIEWS Normal 03-18-2018 [facility] CLINICAL STATEMENT: [facility] ([place]) pain. COMPARISON: (0 0000) 12/02/2013 FINDINGS: The cardiac and mediastinal contours are within normal limits. There is no significant pulmonary vascular congestion, focal consolidation, pleural effusion, or pneumothorax. There is mild biapical pleural thickening. No acute fracture is seen. IMPRESSION: No acute radiographic findings. I have personally reviewed the images of this examination and agree with the resident's findings and interpretation. Interpreted By: Kiersten Blackreliminary Report By: Everardo Pryor MDElectronically Signed By: Kiersten Black MD Dictated Date: 03/18/2018 6:40:15 PM Prelim Date: 03/18/2018 6:41:44 PM Sign Date: 03/18/2018 6:55:43 PM trop on 2018-03-18 Troponin I.cardiac <0.020 0.000-0.040 ng/mL Normal 8 [facility] ([place]) (18672) Comment: Result Comment: Troponin I r eference range: 0.00-0.040 ng/mL Negative and non-diagnostic. >0.040 ng/mL Consistent with cardiac damage, increased clinical risk and possibilit y of myocardial infarction. Serial measurements, a rise & fall in test result s, clinical history, appropriate symptoms and/or ECG changes may help assess possibility of NM. *Other non-acute coronary syndrome conditions such as CHF, myocarditis, pulmonary emboli, sepsis and cardiac surgery could result in myocardial damage and increased troponin levels. Performed By: #### CBC, ADIF F, ANEU ####[address] [place], [place] [address]#### B MP, TROP, GFR ####[address] [address] dimer on 2018-03-18 Fibrin D-dimer FEU IA <200 0-230 ug/mL Normal 03-18-20 18 [facility] (d) ([place]) (10694) Comment: Result Comment: The result o f the D-Dimer test should be evaluated in the context of all the clinical and laboratory data available.In those instances where the laboratory result does not agree with the clinical evaluation, additional tests shouldbe pe rformed accordingly.If the D-Dimer result is used to exclude DVT or PE, t he recommended cutoff value is less than 230 ng/mL. The D-Dimerresult ladonna uld not be used alone to rule in DVT/PE, but should be used in conjunctio n with a clinical pretest probability (PTP)assessment model to exc lude venous thromboembolism (VTE) in outpatients suspected of deep venous thr ombosis (DVT) and pulmonary embolism (PE). Performed By: #### DIMER ### #[address] [place] [id number] cbc on 2018-03-18 Erythrocyte distribution 13.0 11.5-14.5 % Normal 03-18 [facility] width Auto Ratio (RBC) [facility] ([place]) (77051) Comment: Performed By: #### CBC, ADIF F, ANEU ####[address] [place] [address]#### B MP, TROP, GFR ####[place] [address] Hematocrit Auto Volume 37.8 37.0-47.0 % Normal 018 [facility] Fraction (Bld) ([place]) (24589) Comment: Performed By: #### CBC, ADIF F, ANEU ####[address] [address]#### B MP, TROP, GFR ####[address] [address] Hemoglobin mass conc 12.3 12.0-16.0 G/dL Normal 8 [facility] (Bld) [facility] ([place]) (53525) Comment: Performed By: #### CBC, ADIF F, ANEU ####[address] [place] [address]#### B MP, TROP, GFR ####[address] [address] MCH Auto Entitic mass 29.0 27.0-31.2 pg Normal 03-18-20 18 [facility] (RBC) ([place]) (0000 0) Comment: Performed By: #### CBC, ADIF F, ANEU ####[address] [place] [address]#### B MP, TROP, GFR ####[place] [address] MCHC Auto mass conc 32.7 33.0-37.0 G/dL Low 03-18-2018 [facility] (RBC) ([place]) (0000 0) Comment: Performed By: #### CBC, ADIF F, ANEU ####[address] [address]#### B MP, TROP, GFR ####[place] [address] MCV Auto Entitic volume 88.7 80.0-94.0 fL Normal 2017 [facility] (RBC) ([place]) (0000 0) Comment: Performed By: #### CBC, ADIF F, ANEU ####[address] [address]#### B MP, TROP, GFR ####[place] [address] Platelet mean volume Auto 7.6 7.4-10.4 fL Normal [facility] Entitic volume (Bld) ([place]) (79064) Comment: Performed By: #### CBC, ADIF F, ANEU ####[address] [place] [address]#### B MP, TROP, GFR ####[place] [address] Platelets Auto #/vol 301 130-400 10 3/mcL Normal 8 [facility] ([facility]) [facility] ([place]) (22581) Comment: Performed By: #### CBC, ADIF F, ANEU ####[place] [address]#### B MP, TROP, GFR ####[place] [address] RBC Auto #/vol 4.25 4.20-5.40 10 6/mcL Normal 03-18-2018 [facility] ([facility]) [facility] ([place]) (33979) Comment: Performed By: #### CBC, ADIF F, ANEU ####[address] [address]#### B MP, TROP, GFR ####[place] [address] WBC Auto #/vol 12.30 4.60-10.80 10 3/mcL High 03-18-2018 [facility] ([facility] ([place]) (65046) Comment: Performed By: #### CBC, ADIF F, ANEU ####[address] [address]#### B MP, TROP, GFR ####[place] [address] bmp on 2018-03-18 Calcium mass conc 9.7 8.4-10.2 mg/dL Normal 03-18-2018 A Replaced by [facility] ([place]) (43201) Comment: Performed By: #### CBC, ADIF F, ANEU ####[place] [address]#### B MP, TROP, GFR ####[place] [address] Chloride molar conc 101 98-107 mmol/L Normal 03-18-2018 [facility] ([place]) (0000 0) Comment: Performed By: #### CBC, ADIF F, ANEU ####[place] [address]#### B MP, TROP, GFR ####[place] [address] CO2 molar conc 28 22-29 mmol/L Normal 03-18-2018 [facility] ([place]) (09059) Comment: Performed By: #### CBC, ADIF F, ANEU ####[place] [address]#### B MP, TROP, GFR ####[place] [address] Creatinine mass conc 0.76 0.55-1.02 mg/dL Normal 8 [facility] ([place]) (0000 0) Comment: Performed By: #### CBC, ADIF F, ANEU ####[address] [address]#### B MP, TROP, GFR ####[place] [address] Electrolyte Balance 10.0 mEq/L Normal 03-18-2018 [facility] ([place]) (18399) Comment: Performed By: #### CBC, ADIF F, ANEU ####[address] [address]#### B MP, TROP, GFR ####[place] [address] Glucose mass conc 93 70-105 mg/dL Normal 03-18-2018 A Replaced by [facility] ([place]) (78395) Comment: Performed By: #### CBC, ADIF F, ANEU ####[place] [address]#### B MP, TROP, GFR ####[place] [address] Potassium molar conc 3.5 3.5-5.1 mmol/L Normal [facility] ([place]) (0000 0) Comment: Performed By: #### CBC, ADIF F, ANEU ####[place] [id number]#### B MP, TROP, GFR ####[place] [address] Sodium molar conc 139 136-145 mmol/L Normal 03-18-2018 A Replaced by [facility] ([place]) ([id number]) Comment: Performed By: #### CBC, ADIF F, ANEU ####[place] [id number]#### B MP, TROP, GFR ####[place] [address] Urea nitrogen mass conc 15 7-18 mg/dL Normal 2017 [facility] ([place]) (0000 0) Comment: Performed By: #### CBC, ADIF F, ANEU ####[address] [address]#### B MP, TROP, GFR ####[address] [address] Urea nitrogen/Creatinine mass 20 7-27 ratio Normal 03-18-2018 [facility] ([place]) ([id number]) Comment: Performed By: #### CBC, ADIF F, ANEU ####[place] [address] [place], [place] [address]#### B MP, TROP, GFR ####[address] [address] .neuabs on Neutrophil, Absolute 8.90 2.85-6.16 10 3/mcL High 8 [facility] ([place]) (36717) Comment: Performed By: #### CBC, ADIF F, ANEU ####[address] [address]#### B MP, TROP, GFR ####[address] [address] .gfr on 2018-03-18 GFR 101 ml/min/1.73sqm Normal [facility] ([place]) (0000 0) Comment: Result Comment: GFR Populati on mean for , Non- Americans Ages 20-29 = 116 m L/min/1.73 sq.m. Ages 30-39 = 107 mL/min/1.73 sq.m. Ages 40-49 = 99 mL/min /1.73 sq.m. Ages 50-59 = 93 mL/min/1.73 sq.m. Ages 60-69 = 85 mL/min/1.73 sq.m. Ages 70+ = 75 mL/min/1.73 sq.m.Chronic Kidney Disease: Less than 60 mL/min/1.73 square metersEnd Stage Renal Disease: Less than 15 mL/min /1.73 square meters Performed By: #### CBC, ADIF F, ANEU ####[facility] [place], [place] [address]#### B MP, TROP, GFR ####[address] [address] GFR Non- 83 ml/min/1.73sqm Normal 03-18-2018 [facility] ([place]) ([id number]) Comment: Result Comment: GFR Populati on mean for , Non- Americans Ages 20-29 = 116 m L/min/1.73 sq.m. Ages 30-39 = 107 mL/min/1.73 sq.m. Ages 40-49 = 99 mL/min /1.73 sq.m. Ages 50-59 = 93 mL/min/1.73 sq.m. Ages 60-69 = 85 mL/min/1.73 sq.m. Ages 70+ = 75 mL/min/1.73 sq.m.Chronic Kidney Disease: Less than 60 mL/min/1.73 square metersEnd Stage Renal Disease: Less than 15 mL/min /1.73 square meters Performed By: #### CBC, ADIF F, ANEU ####[place] [address]#### B MP, TROP, GFR ####[address] [address] .auto diff on 03-18 Ammonia mass conc 0.60 0.15-1.00 10 3/mcL Normal 03-18-2018 A [facility] () [facility] ([place]) ([id number]) Comment: Performed By: #### CBC, ADIF F, ANEU ####[place] [address]#### B MP, TROP, GFR ####[address] [address] Basophils Auto #/vol 0.00 0.00-0.19 10 3/mcL Normal 8 [facility] (d) [facility] ([place]) (15563) Comment: Performed By: #### CBC, ADIF F, ANEU ####[place] [address]#### B MP, TROP, GFR ####[place] [address] Basophils/100 WBC Auto (Bld) 0.3 0.0-2.5 % Normal 1 [facility]) (0000 0) Comment: Performed By: #### CBC, ADIF F, ANEU ####[place] [address]#### B MP, TROP, GFR ####[address] [address] Eosinophils Auto #/vol 0.00 0.00-0.40 10 3/mcL Normal [address] [place] [address]) ([id number]) Comment: Performed By: #### CBC, ADIF F, ANEU ####[place] [address]#### B MP, TROP, GFR ####[address] [address] Eosinophils/100 WBC Auto 0.4 0.0-7.0 % Normal 03-18 [facility] 1928–1983) ([address]) Comment: Performed By: #### CBC, ADIF F, ANEU ####[place] [address]#### B MP, TROP, GFR ####[address] [address] Lymphocytes Auto #/vol 2.80 0.77-3.85 10 3/mcL Normal [address] [place] [address]) ([address]) Comment: Performed By: #### CBC, ADIF F, ANEU ####[place] [address]#### B MP, TROP, GFR ####[address] [address] Lymphocytes/100 WBC Auto 22.5 10.0-50.0 % Normal 03-18 [facility]) ([id number]) Comment: Performed By: #### CBC, ADIF F, ANEU ####[place] [address]#### B MP, TROP, GFR ####[address] [address] Monocytes/100 WBC Auto (Bld) 5.0 1.7-13.0 % Normal 1 [facility] ([place]) ([address]87) Comment: Performed By: #### CBC, ADIF F, ANEU ####[address] [place], [place] [address]#### B MP, TROP, GFR ####[address] [address] Neutrophils/100 WBC Auto 71.8 37.0-80.0 % Normal 03-18 [facility] (Bld) [facility] ([place]) (13249) Comment: Performed By: #### CBC, ADIF F, ANEU ####[address] [place], [place] [address]#### B MP, TROP, GFR ####[address] [address] xr abdomen ap on 30-12-26 XR ABDOMEN AP ORIGINALXR ABDOMEN AP Normal 12-14 [facility] CLINICAL STATEMENT: pain. [facility] ([place]) COMPARISON: 10/18/2015 ([id number]) FINDINGS: Surgical clips in the RIGHT upper quadrant and RIGHT pelvis. There are no air distended bowel segments. No pathologic calcification identified. No destructive osseous lesions seen. IMPRESSION: No acute radiographic finding Interpreted By: Girma Rmreliminary Report By: Girma Rm MDElectronically Signed By: Girma Rm MD Dictated Date: 01/08/2018 11:33:19 AM Prelim Date: 01/08/2018 11:33:19 AM Sign Date: 01/08/2018 11:34:09 AM ua on 2018-01-08 Color Nom (U) Yellow Normal 01-08-2018 [facility] ([place]) ([id number]) Comment: Performed By: #### UA, UAMIC AO ####[address] [place], [place] [address] Glucose mass conc Negative Negative mg/dL Normal 01-08-2018 A [facility] (U) [facility] ([place]) (23208) Comment: Performed By: #### UA, UAMIC AO ####[address] [place], [place] [address] Ketones Ql (U) Negative Negative Normal 01-08-2018 [facility] ([place]) ([address]86) Comment: Performed By: #### UA, UAMIC AO ####[address] [place], [place] [address] UA Appear Clear Clear Normal 01-08-2018 [facility] ([place]) (35851) Comment: Performed By: #### UA, UAMIC AO ####[address] [place], [place] [address] UA Blood Moderate-Intact Negative Invalid 01-08-2018 [facility] Health Interpretation Code [facility] ([place]) (71399) Comment: Performed By: #### UA, UAMIC AO ####[address] [place], [place] [address] UA Leuk Est Negative Negative Normal 01-08-2018 [facility] ([place]) (64628) Comment: Performed By: #### UA, UAMIC AO ####[address] [place], [place] [address] UA Nitrite Negative Negative Normal 01-08-2018 [facility] ([place]) ([id number]) Comment: Performed By: #### UA, UAMIC AO ####[address] [place], [place] [address] UA pH 5.5 Normal 01-08-2018 [facility] ([place]) (235[address]) Comment: Performed By: #### UA, UAMIC AO ####[address] [place], [place] [address] UA Protein Negative Negative Normal 01-08-2018 [facility] ([place]) (40780) Comment: Performed By: #### UA, UAMIC AO ####[address] [place], [place] [address] UA Spec Grav >=1.030 Invalid Interpretation Code 01-08-2018 [facility] ([place]) (58309) Comment: Performed By: #### UA, UAMIC AO ####[address] [place], [place] [address] UA Specimen Type Clean Catch Normal 01-08-2018 [facility] ([place]) ([id number]) Comment: Performed By: #### UA, UAMIC AO ####[address] [place], [place] [address] UA Urobilinogen 0.2 E.U./dL Normal 01-08-2018 [facility] ([place]) (42441) Comment: Performed By: #### UA, UAMIC AO ####[address] [place], [place] [address] Urobilinogen Test Negative Negative {Batsheva'U}/dL Normal 018 [facility] strip Qn (U) Foundat [facility] ([place]) (00093) Comment: Performed By: #### UA, UAMIC AO ####[address] [place], [place] [address] .urinalysis microscopic (ao) on 2018-01-08 RBC Test strip 0-5 None Seen Invalid Interpretation [facility] #/vol (U) Code [facility] ([place]) (09744) Comment: Performed By: #### UA, UAMIC AO ####[address] [place] [place], [place] [address] UA Bacteria Trace Invalid Interpretation Code 01-08-2018 [facility] ([place]) (09711) Comment: Performed By: #### UA, UAMIC AO ####[address] [place], [place] [address] UA Mucous 1+ /hpf Normal 01-08-2018 [facility] ([place]) (76628) Comment: Performed By: #### UA, UAMIC AO ####[address] [place], [place] [address] UA Squam 0-5 None Seen Invalid Interpretation 018 [facility] ([place]) (13055) Comment: Performed By: #### UA, UAMIC AO ####[address] [place], [place] [address] UA WBC 0-5 None Seen Invalid Interpretation Code [facility] ([place]) (77509) Comment: Performed By: #### UA, UAMIC AO ####[address] [place], [place] [address] progress on 2017-01 PROGRESS HNO ID: [id number]: Normal [facility] 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 Deniesany further abdominal pain. Denies frequent stooling. Feels like she isback to her normal in that regards. In discussing her symptoms, patientlet me know she had been feeling fatigued for about a month prior tocoming in and initially being seen at the urgent care. Patient did notmention that she also did have a pretty severe sore throat during thattime. It is very possible that she developed mono during that time andthen when she was seen a month later her EBV titers only showed anelevated IGG. I discussed this as a possibility and why she is stillfeeling fatigued. Advised patient to drink plenty of fluids and get plentyof rest and notify us if not better. Patient verbalized understanding.Past medical history, appointments, medications, allergies reviewed.Previous Medical HistoryPAST MEDICAL HISTORYDiagnosis Date- Arthritis jaw and neck joints- Chronic cystitis- GERD (gastroesophageal reflux disease)- Irritable bowel syndrome- Migraine- Restless leg syndromePrevious Surgical HistoryPAST SURGICAL [id number]: APPENDECTOMY09/06/15: ENDOMETRIAL ABLATION WITH US GUIDANCE09/06/15: [id number]: PAST SURGICAL HISTORY OF Comment: [id number]: PAST SURGICAL HISTORY OF Comment: bladder distention for chronic interstitial cystitis09/06/15: PAST SURGICAL HISTORY OF Bilateral Comment: lap salpingectomy09/06/15: PAST SURGICAL HISTORY OF Comment: diagnostic laparoscopy09/06/15: PAST SURGICAL HISTORY OF Comment: dilation and vkzvqvips80, 06, 09: PAST SURGICAL HISTORY OF Comment: nerve blocksFamily HistoryFAMILY HISTORY high blood pressure [Other] [OTHER] Mother high blood pressure [Other] [OTHER] Father high blood pressure [Other] [OTHER] Brother high blood pressure [Other] [OTHER] Sister high blood pressure [Other] [OTHER] Maternal Grandmother Cancer Maternal Grandmother Comment: skin, pancreatic Cancer Paternal Uncle Comment: bladderPatient AllergiesALLERGIESAllergen Reactions- Ativan [Lorazepam] Mental Status ChangeCurrent MedicationsCurrent Outpatient Prescriptions on File Prior to Visit:oxaprozin (DAYPRO) 600 mg tablet as needed.ondansetron (ZOFRAN, HYDROCHLORIDE,) 4 mg tablet Take 1 tablet by mouthevery 8 hours as needed (for nausea.).rOPINIRole 2 mg tablet Take 2 mg by mouth daily at bedtime.traMADol 50 mg tablet Take 50 mg by mouth every 6 hours as needed.PRAMIPEXOLE DI-HCL (PRAMIPEXOLE ORAL) Take by mouth.rizatriptan (MAXALT-CLOTH SHEARING SUPERVISOR) 10 mg disintegrating tablet Take 10 mg by mouthas needed. May repeat in 2 hours if neededDULoxetine 60 mg capsule Take 60 mg by mouth once daily.phenazopyridine 100 mg tablet Take 100 mg by mouth three times daily asneeded.No current facility-administered medications on file prior to visit.Social HistorySocial History Marital status: Spouse name: Years of education: Number of children:Social History Main Topics Smoking status: Former Smoker Packs/day: 0.50 Years: 4.00 Types: Cigarettes Quit date: 07/06/1999 Alcohol use: No Drug use: NoROS:General: Feels well, no weight changes, fever, chills.HEENT: No sinus congestion, earache, sore throat.Cardiac: No chest pain, palpitations, shortness of breathResp: + slight cough, wheeze.GI: No reflux symptoms, food intolerance, bowel changes.: No urinary frequency, dysuria.MS: No pain or joint complaints.EXAM:BP 100/80 Pulse 60 Resp 14 Wt 63 kg (139 lb) LMP 01/12/2017 BMI22.44 kg/y2Paonxrg Appearance: Well appearing, alert, in no acute distress,well-hydrated, well nourished..Ears: External ears normal, canals clear.Oropharynx: Lips, mucosa, and tongue normal, teeth and gums normal,oropharynx normal.Lungs: Lungs clear to auscultation. No wheezing, rhonchi, rales.Heart: RRR without murmur, gallop, or rubs. No ectopy.Abdomen: Normal abdominal exam, Abdomen soft, non-tender. Bowel soundsnormal. No masses, organomegaly.Extremities: No deformities, edema, skin discoloration, clubbing orcyanosis. Good capillary refill. .ASSESSMENT/PLAN:1. Mononucleosis - ICD9: 075, ICD10: B27.90 (primary diagnosis)- Improving, but is still fatigued. Encouraged to get plenty of rest anddrink plenty of fluids.2. LLQ abdominal pain - ICD9: 789.04, ICD10: R10.32- Resolved.Follow up as needed or if not any better.DAVID Vargas on 2017-01-13 CNOV Office Visit Normal 01-13-2017 Radha and (STEFFANYWS) --------[facility] LILI BLACKBURN ([id number]) 04/16 F CHTDate Time Provider Department01/13/17 8:20 AM LIONEL Dumont (DAVID) FAM P[facility] During your visit today, we recorded the following ([id number]) information about you: Pulse Respiration Blood pressure Weight 60/minute 14/minute 100/80 63 kg Last Period 01/12/17 dottie Schumacher CNP 01/13/2017 8:58 AM SignedChief ComplaintPatient presents wi th:Debby Junior is a 41 year old female who presents here today for foll ow upabd pain, Pt states she feels better but still very fatigued. Denies anyfurther abdominal pain. Denies frequent stooling. Feels like she is back toher normal in that re gards. In discussing her symptoms, patient let me know shehad been feeling fatigued for ab out a month prior to coming in and initiallybeing seen at the urgent care. Patient did not mention that she also did have apretty severe sore throat during that time. It is very possible that shedeveloped mono during that time and then when she was seen a month later h erEBV titers only showed an elevated IGG. I discussed this as a possibility andwhy she is st ill feeling fatigued. Advised patient to drink plenty of fluidsand get plenty of rest and notify us if not better. Dean gutierres verbalizedunderstanding.Past medical history, appointments, medications, allergies reviewed.Previous Medical Hi storyPAST MEDICAL HISTORYDiagnosis Date- Arthritis jaw and neck joints- Chronic cystitis- GE RD (gastroesophageal reflux disease)- Irritable bowel syndrome- Migraine- Restless leg syndr omePrevious Surgical HistoryPAST SURGICAL [id number]: APPENDECTOMY09/06/15: ENDOMET RIAL ABLATION WITH US GUIDANCE09/06/15: [id number]: PAST SURGICAL HISTORY OF Comment: [id number]: PAST SURGICAL HISTORY OF Comment: bladder distention for chronic inter stitial cystitis09/06/15: PAST SURGICAL HISTORY OF Bilateral Comment: lap salpingectomy: PAST SURGICAL HISTORY OF Comment: diagnostic laparoscopy09/06/15: PAST ADDY GICAL HISTORY OF Comment: dilation and [id number], , : PAST SURGICAL HISTORY OF Com ment: nerve blocksFamily HistoryFAMILY HISTORY high blood pressure [Other] [OTHER] Mot her high blood pressure [Other] [OTHER] Father high blood pressure [Other] [OTHER] Bro ther high blood pressure [Other] [OTHER] Sister high blood pressure [Other] [OTHER] Mat yogial Grandmother Cancer Maternal Grandmother Comment: skin, pancreatic Cancer Paternal U ncle Comment: bladderPatient AllergiesALLERGIESAllergen Reactions- Ativan [Lorazepam ] Mental Status ChangeCurrent MedicationsCurrent Outpatient Prescriptions on File Prior to Visit:oxaprozin (DAYPRO) 600 mg tablet as needed.ondansetron (ZOFRAN, HYDROCHLORIDE,) 4 mg tablet Take 1 tablet by mouthevery 8 hours as needed (for nausea.).rOPINIRole 2 mg tab let Take 2 mg by mouth daily at bedtime.traMADol 50 mg tablet Take 50 mg by mouth every 6 hours as needed.PRAMIPEXOLE DI-HCL (PRAMIPEXOLE ORAL) Take by mouth.rizatriptan (MAXALT-ML T) 10 mg disintegrating tablet Take 10 mg by mouth asneeded. May repeat in 2 hours if nee dedDULoxetine 60 mg capsule Take 60 mg by mouth once daily.phenazopyridine 100 mg tablet Take 100 mg by mouth three times daily as needed.No current facility-administere d medications on file prior to visit.Social HistorySocial History Marital status: Migdalia ied Spouse name: Years of education: Number of children:Social History Main Topics Smoking status: Former Smoker Packs/day: 0.50 Years: 4.00 Types: Cigarettes Quit date: Alcohol use: No Drug use: NoROS:General: Feels well, no weight changes, fever, chill s.HEENT: No sinus congestion, earache, sore throat.Cardiac: No chest pain, palpitations, sh ortness of breathResp: + slight cough, wheeze.GI: No reflux symptoms, food intolerance, bowel changes.: No urinary frequency, dysuria.MS: No pain or joint complaints.EXAM:BP 100 /80 Pulse 60 Resp 14 Wt 63 kg (139 lb) LMP 01/12/2017 BMI 22.44kg/c1Dvazlef Appearance: Well a ppearing, alert, in no acute distress, well-hydrated,well nourished ..Ears: External ears normal, canals clear.Oropharynx: Lips, mucosa, and tongue normal, t eeth and gums normal, oropharynxnormal.Lungs: Lungs clear to auscultation. No wheezing, r honchi, rales.Heart: RRR without murmur, gallop, or rubs. No ectopy.Abdomen: Normal abdom inal exam, Abdomen soft, non-tender. Bowel sounds normal.No masses, organomegaly.Extremi ties: No deformities, edema, skin discoloration, clubbing or cyanosis.Good capillary refi ll. .ASSESSMENT/PLAN:1. Mononucleosis - ICD9: 075, ICD10: B27.90 (primary diagnosis)- Improving, but is still fatigued. Encouraged to get plenty of rest and drinkplenty of flui ds.2. LLQ abdominal pain - ICD9: 789.04, ICD10: R10.32- Resolved.Follow up as needed or if not any better.Niels Vargas CNP 01/13/2017 8:45 A M SignedGet plenty of rest and drink plenty of fluids.Let us know if you do not improve.Referring Provider: LETICIA BETH (DAVID) [[id number]]Allergies As of Da te: 01/13/2017 Noted Allergy ReactionATIVAN (LORAZEPAM) 09/13/2015 1 - Mental Status ChangeDate Reviewed: 01/13/2017Reviewed by: Reny Tam Ma - Fully AssessedReason for Visit: Recheck [92 ]Primary Visit Diagnosis:Mononucleosis [B27.90] Other Visit Diagnosis:LLQ a bdominal pain [R10.32]Prescriptions as of 01/13/2017 Sig: OXAPROZIN 600 MG TABLET as needed. ONDANSETRON HCL 4 MG TABLET Take 1 table t by mouth every * ROPINIROLE 2 MG TABLET Take 2 mg by mouth daily at b* TRAMADOL 50 MG T ABLET Take 50 mg by mouth every 6 h* PRAMIPEXOLE ORAL Take by mouth. 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 Let us know if you do not improve.Disposition: Return if symptoms worsen or fail to i mprove.Follow-up and Disposition History RecordedEncounter Number: [id number] Status:Closed by LIONEL SCHUMACHER CNP on 01/13/17 stool culture on 29-12-18 Stool Culture Sp. Request/Comment: - Normal [facility] Specimen received in a [place] ([id number]) Culture and Susceptibility Kit.Campylobacter EIA - Negative for Campylobacter species by EIA.Shiga Toxin - Negative for Shiga toxin 1 and 2 by EIACulture Result - Negative for Escherichia coli O157:H7 Negative for Salmonella and Shigella sp. Comment: Performed By: #### STCUL ### [address] [id number] [phone] c difficile pcr on 2016-12-31 C difficile PCR Negative for C. Normal 01-01-20 [facility] difficile toxin by PCR [place] ([id number]) Comment: Performed By: #### CDPCR ### #[facility] [place] [address] [phone] progress on 2016-12 PROGRESS HNO ID: [id number]: Makeda Gonzalez Normal 12-30-2016 [place] [address]Service: (none)Author Type: Clinic (none)Type: Progress NotesFiled: [place] 12/30/2016 12:22 PMNote Text: Radiology ([id number]) Service Progress NotePATIENT NAME: Lili RaeMRN: [id number] OF SERVICE: December 30, 2016TIME: 12:21 PMPATIENT IDENTITY VERIFICATION COMPLETED USING TWO (2) METHODS: Patientconfirmed name verbally and Date of .PATIENT GENDER DATA: Female. status: : NoBreastfeeding status: NO.PATIENT RELEVANT IMPLANT DATA REVIEWED: Not ApplicableCONTRAST INDUCED NEPHROPATHY RISK FACTORS: Not applicableCREATININE:CreatinineDate Value Ref Range Prcezr9312/22/2016 0.63 0.58 - 0.96 mg/dL Final06/10/2015 0.54 0.51 - 0.95 mg/dL Final eGFR-All Other RacesDate Value Ref Range Jowqmo3212/22/2016 >60 . FinalComment:eGFR (Estimated GFR) Units of measure: mL/min/1.73 meters squaredeGFR is derived from the reexpressed MDRD Study equation using thefollowingparameters: serum creatinine, age, gender and race. The creatinine assayhasbeen calibrated to be traceable to IDMS.An eGFR <60 mL/min/1.73m2 for >3 months is consistent with chronic kidneydisease. Refer to KDOQI guidelines for clinical interpretation.In patients with unstable renal function, e.g. those with acute kidneyinjury,the eGFR may not accurately reflect actual GFR. eGFR- AmericanDate Value Ref Range Kxearf7012/22/2016 >60 Final P.O.C.T. RESULTS: POCT Creatinine Results: 0.63 mg/dl and Q.C. = OK.December 30, 2016REFERENCE RANGE:Reference range (age 0-9 years) 0.30 - 1.00 mg/dLReference range (age 10-14 years) 0.30 - 1.20 mg/dLReference range (age 15-18 years) 0.40 - 1.30 mg/dLReference range (age 19-99 years ) 0.70-1.40 mg/dLCALCULATED GFR: .RADIOLOGIST NOTIFIED?: NoALLERGIES: Reviewed and unchangedCONTRAST ALLERGY: NO.PERIPHERAL IV ACCESS: Ambulatory: IV type: A peripheral IV was startedin the Left antecubital site with a Angio cath: 20 gauge., Siteassessment: Clean,Dry and Intact, Site disposition DiscontinuedRADIOLOGY DEPARTMENT: CT; Exam(s) Completed: Abdomen/PelvisSIGNED BY: Makeda Tang CtJuly 2016 12:[address] abd/pel w ivcon on 2016-12-30 CT ABD/PEL W * * *Final Report* * *DATE OF Normal 12-30-2016 [place] IVCON EXAM: Dec 30 2016 11:58AM [facility] 0530 Clinic - CT ABD/PEL W IVCON / ACCESSION # Percy [id number] REASON: Left (42563) lower quadrant pain * * * * Physician Interpretation * * * * EXAMINATION: CT ABDOMEN AND PELVIS WITH IV CONTRASTCLINICAL HISTORY: Left lower quadrant abdominal painTECHNIQUE: CT of the abdomen and pelvis was performed using standard technique, scanning from just above the dome of the diaphragm to the symphysis pubis.M: CTAP_2Contrast:IV: 123 ml of Omnipaque 300Oral: 50 ml of 50ML Omnipaque 240 W 850ML WaterCT Radiation dose: Integrated Dose-length product (DLP) for this visit = 347 mGy*cm.CT Dose Reduction Employed: Automated exposure control (AEC)COMPARISON: None.RESULT:Liver: No mass. Normal hepatic morphology.Biliary: No bile duct dilation. The gallbladder is surgically absent.Spleen: No mass. No splenomegaly.Pancreas: No mass or duct dilation.Adrenals: No mass.Kidneys: The kidneys enhance symmetrically. There is no hydronephrosis. There are subcentimeter low-density lesions in both kidneys which are too small to characterize, but statistically most likely benign.GI tract: No dilation or wall thickening.Lymph nodes: No abdominal or pelvic lymphadenopathy.Mesentery/Peritone um: No ascites or mass.Vasculature: The celiac axis and SMA are patent. The portal vein and branches, splenic vein, SMV, and hepatic veins are patent. No abdominal aortic aneurysm.Pelvis: There is a 4 cm right adnexal cyst. The bladder has a normal appearance.Bones/Soft Tissues: No acute fracture or destructive osseous lesion.Lower thorax: No pleural effusion or consolidation.IMPRESSION:1. No acute pathology2. There is a 4 cm right adnexal cyst. This could be further evaluated by pelvic ultrasound on a nonemergent basis.Dcs Engineer: JONATHON Transcribe Date/Time: Dec 30 2016 12:21PDictated by : KACY ALFARO MDThis examination was interpreted and the report reviewed and electronically signed by: KACY ALFARO MD on Dec 30 2016 12:37PM EST progress on 2016-12 PROGRESS HNO ID: [id number]: Ivánbenjalori molina 12-29-2016 [place] ([facility] CourtService: (none)Author Clinic Type: Nurse PractitionerType: Albina Greer NotesFiled: 12/29/2016 2:42 PMNote ([id number]) Text:Chief ComplaintPatient presents with:RecheckHPIFollow up express care. DX with monoAngel Vic Junior is a 41 year old female who presents here today forfatigue follow up. Patient was seen in urgent care on 12/22 for same andhad blood work done. Patient was told she had mono, however only her EBVIGG antibodies were positive and has no other symptoms of sore throat,fever or lymphadenopathy which would lead me to believe it is justpositive due to an exposure earlier in life. Patient feels her fatigue isoverall worse. States she sleeps well. 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 Is currently going 3 times a day for the last 4 days. Some isdiarrhea and some are semi-solid. This is very abnormal for her. Deniesany abdominal pain.Past medical history, appointments, medications, allergies reviewed.Previous Medical HistoryPAST MEDICAL HISTORYDiagnosis Date- Arthritis jaw and neck joints- Chronic cystitis- GERD (gastroesophageal reflux disease)- Irritable bowel syndrome- Migraine- Restless leg syndromePrevious Surgical HistoryPAST SURGICAL [id number]: APPENDECTOMY09/06/15: ENDOMETRIAL ABLATION WITH US GUIDANCE09/06/15: [id number]: PAST SURGICAL HISTORY OF Comment: [id number]: PAST SURGICAL HISTORY OF Comment: bladder distention for chronic interstitial cystitis09/06/15: PAST SURGICAL HISTORY OF Bilateral Comment: lap salpingectomy09/06/15: PAST SURGICAL HISTORY OF Comment: diagnostic laparoscopy09/06/15: PAST SURGICAL HISTORY OF Comment: dilation and [id number], : PAST SURGICAL HISTORY OF Comment: nerve blocksFamily HistoryFAMILY HISTORY high blood pressure [Other] [OTHER] Mother high blood pressure [Other] [OTHER] Father high blood pressure [Other] [OTHER] Brother high blood pressure [Other] [OTHER] Sister high blood pressure [Other] [OTHER] Maternal Grandmother Cancer Maternal Grandmother Comment: skin, pancreatic Cancer Paternal Uncle Comment: bladderPatient AllergiesALLERGIESAllergen Reactions- Ativan [Lorazepam] Mental Status ChangeCurrent MedicationsCurrent Outpatient Prescriptions on File Prior to Visit:NITROFURANTOIN MONOHYD/M-CRYST (MACROBID ORAL) Take by mouth.cyclobenzaprine (FLEXERIL) 10 mg tablet Take 10 mg by mouth three timesdaily as needed.ciprofloxacin HCl (CILOXAN) 0.3 % ophthalmic solution Use 1 Drop in theright eye four times daily.HYDROcodone-acetaminophen (NORCO) 5-325 mg per tablet as needed.ibuprofen (MOTRIN) 600 mg tablet as needed.oxaprozin (DAYPRO) 600 mg tablet as needed.pantoprazole DR (PROTONIX) 40 mg tablet as needed.peg 3350-Electrolytes 236-22.74-6.74 gram suspension Take as instructedfor colonoscopy prep.ondansetron (ZOFRAN, HYDROCHLORIDE,) 4 mg tablet Take 1 tablet by mouthevery 8 hours as needed (for nausea.).ascorbic acid (VITAMIN C) 500 mg tablet Take 500 mg by mouth once daily.Ferrous Sulfate (IRON, FERROUS SULFATE,) 325 mg (65 mg iron) tablet [id number] mg by mouth daily with breakfast.ranitidine 150 mg tablet Take 150 mg by mouth daily at bedtime.rOPINIRole 2 mg tablet Take 2 mg by mouth daily at bedtime.traMADol 50 mg tablet Take 50 mg by mouth every 6 hours as needed.PRAMIPEXOLE DI-HCL (PRAMIPEXOLE ORAL) Take by mouth.rizatriptan (MAXALT-CLOTH SHEARING SUPERVISOR) 10 mg disintegrating tablet Take 10 mg by mouthas needed. May repeat in 2 hours if neededDULoxetine 60 mg capsule Take 60 mg by mouth once daily.phenazopyridine 100 mg tablet Take 100 mg by mouth three times daily asneeded.No current facility-administered medications on file prior to visit.Social HistorySocial History Marital status: Spouse name: Years of education: Number of children:Social History Main Topics Smoking status: Former Smoker Packs/day: 0.50 Years: 4.00 Types: Cigarettes Quit date: 07/06/1999 Alcohol use: No Drug use: NoROS:General: Feels well, no weight changes, fever, +chills +fatigueHEENT: No sinus congestion, earache, +sore throat.Cardiac: No chest pain, palpitations, shortness of breathResp: +cough, wheeze.GI: No reflux symptoms, food intolerance, +bowel changesGU: No urinary frequency, dysuria.MS: No pain or +joint complaints.EXAM:BP 100/60 Pulse 96 Temp 36.7 ?C (98.1 ?F) (Left Tympanic) Resp 14 Wt 62.1 kg (137 lb) LMP 12/08/2016 BMI 22.11 kg/u6Bahhoev Appearance: Well appearing, alert, in no acute distress,well-hydrated, well nourished..Eyes: Anicteric sclera. Pupils are equally round and reactive to light.Extraocular movements are intact. .Ears: External ears normal, canals clear.Oropharynx: Lips, mucosa, and tongue normal, teeth and gums normal,oropharynx normal.Lungs: Lungs clear to auscultation. No wheezing, rhonchi, rales.Heart: RRR without murmur, gallop, or rubs. No ectopy.Abdomen: Abdomen soft, tender to LUQ and LLQ with palpation. Possiblesplenomegaly with tenderness. Bowel sounds normal. No masses.Extremities: No deformities, edema, skin discoloration, clubbing orcyanosis. Good capillary refill.Peripheral Pulses: Normal.Neurologic: Gait normal. Reflexes normal and symmetric. Sensation grosslyintact..Lymph Nodes: No cervical lymphadenopathy, No supraclavicularlymphadenopathy.ASSESSME NT/PLAN:1. LLQ abdominal pain - ICD9: 789.04, ICD10: R10.32 (primary diagnosis)- Work up with CT Abdomen/Pelvis. Will check stool studies as well. Hadrecent labs.- Follow up if worsening of symptoms- CT ABD/PEL W IVCON- IV CONTRAST (RADIOLOGY PROCEDURE)- ENTERIC CONTRAST (RADIOLOGY PROCEDURE)- STOOL CULTURE/EIA- C. DIFFICILE PCR2. Fatigue, unspecified type - ICD9: 780.79, ICD10: R53.83- Unclear etiology. I do not think it is related to EBV IGG beingpositive. Will check for enlarged spleen however.Follow up as needed or with any worsening.Lionel Schumacher, DAVID cnov on 2016-12-29 CNOV Office Visit Normal 12-29-2016 Radha and (LENORE) -------- Clinic LILI BLACKBURN ([id number]) 04/[birth year] F CHTDate Time Provider Department12/29/16 1:40 PM LIONEL Dumont (MATERIAL CUTTER) CONRAD P[facility] During your visit today, we recorded the following ([id number]) information about you: [place] rature Pulse Respiration Blood pressure 98.1 degrees 96/minute 14/minute 100/60 Weight 62.1 kgChristopher Robe CNP 12/29/2016 2:42 PM SignedChief ComplaintPatient presents wi th:RecheckHPIFollow up express care. DX with monoAngel Junior is a 41 year old fema le who presents here today for fatiguefollow up. Patient was seen in urgent care on 12/22 for same and had blood workdone. Patient was told she had mono, however only her EBV IGG ant ibodies werepositive and has no other symptoms of sore throat, fever or lymphadenopathywhic h would lead me to believe it is just positive due to an exposure earlierin life. Pat saad feels her fatigue is overall worse. 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 Is currently going 3 times a day for the last 4 d ays. Some is diarrheaand some are semi-solid. This is very abnormal for her. Denies any abdominalpain.Past medical history, appointments, medications, allergies reviewed.Previous Medical HistoryPAST MEDICAL HISTORYDiagnosis Date- Arthritis jaw and neck joints- Chronic cystitis- GERD (gastroesophageal reflux disease)- Irritable bowel syndrome- Migraine- Re stless leg syndromePrevious Surgical HistoryPAST SURGICAL [id number]: APPENDECTOMY08/14 09/28: ENDOMETRIAL ABLATION WITH US GUIDANCE09/06/15: [id number]: PAST SURGI HORACIO HISTORY OF Comment: [id number]: PAST SURGICAL HISTORY OF Comment: bladder distention for chronic interstitial cystitis09/06/15: PAST SURGICAL HISTORY OF Bilatera l Comment: lap salpingectomy09/06/15: PAST SURGICAL HISTORY OF Comment: diagnostic laparosc opy09/06/15: PAST SURGICAL HISTORY OF Comment: dilation and zaxwctzgz73, 06, 09: PAST MORROW RGICAL HISTORY OF Comment: nerve blocksFamily HistoryFAMILY HISTORY high blood pressure [Other] [OTHER] Mother high blood pressure [Other] [OTHER] Father high blood pressure [ Other] [OTHER] Brother high blood pressure [Other] [OTHER] Sister high blood pressure [ Other] [OTHER] Maternal Grandmother Cancer Maternal Grandmother Comment: skin, pancreatic Cancer Paternal Uncle Comment: luz dderPatient AllergiesALLERGIESAllergen R eactions- Ativan [Lorazepam] Mental Status ChangeCurrent MedicationsCurrent Outpatien t Prescriptions on File Prior to Visit:NITROFURANTOIN MONOHYD/M-CRYST (MACROBID OR AL) Take by mouth.cyclobenzaprine (FLEXERIL) 10 mg tablet Take 10 mg by mouth three times d ailyas needed.ciprofloxacin HCl (CILOXAN) 0.3 % ophthalmic solution Use 1 Drop in the r ighteye four times daily.HYDROcodone-acetaminophen (NORCO) 5-325 mg per tablet as neede d.ibuprofen (MOTRIN) 600 mg tablet as needed.oxaprozin (DAYPRO) 600 mg tablet as needed.pantoprazole DR (PROTONI X) 40 mg tablet as needed.peg 3350-Electrolytes 236-22.74- 6.74 gram suspension Take as instructed forcolonoscopy prep.ondansetron (ZOFRAN, HYDROCHLORIDE,) 4 mg tablet Take 1 tablet by mouthevery 8 hours as needed (for nausea. ).ascorbic acid (VITAMIN C) 500 mg tablet Take 500 mg by mouth once daily.Ferrous Sulfate ( IRON, FERROUS SULFATE,) 325 mg (65 mg iron) tablet Take 325 mgby mouth daily with breakf ast.ranitidine 150 mg tablet Take 150 mg by mouth daily at bedtime.rOPINIRole 2 mg tabl et Take 2 mg by mouth daily at bedtime.traMADol 50 mg tablet Take 50 mg by mouth every 6 hours as needed.PRAMIPEXOLE DI-HCL (PRAMIPEXOLE ORAL) Take by mouth.rizatriptan (MAXALT-ML T) 10 mg disintegrating tablet Take 10 mg by mouth asneeded. May repeat in 2 hours if nee dedDULoxetine 60 mg capsule Take 60 mg by mouth once daily.phenazopyridine 100 mg tablet Take 100 mg by mouth three times daily as needed.No current facility-administere d medications on file prior to visit.Social HistorySocial History Marital status: Migdalia ied Spouse name: Years of education: Number of children:Social History Main Topics Smoking status: Former Smoker Packs/day: 0.50 Years: 4.00 Types: Cigarettes Quit date: Alcohol use: No Drug use: NoROS:General: Feels well, no weight changes, fever, +chil ls +fatigueHEENT: No sinus congestion, earache, +sore throat.Cardiac: No chest louisa n, palpitations, shortness of breathResp: +cough, wheeze.GI: No reflux symptoms, food intole rosa, +bowel changesGU: No urinary frequency, dysuria.MS: No pain or +joint complaints.EX AM:BP 100/60 Pulse 96 Temp 36.7 ?C (98.1 ?F) (Left Tympanic) Resp 14 Wt62.1 kg (137 lb) LMP 12/08/2016 BMI 22.11 kg/m1Prmerpr Appearance: Well appearing, alert, in no acute distress, w ell-hydrated,well nourished..Eyes: Anicteric sclera. Pupils are equally roun d and reactive to light.Extraocular movements are intact. .Ears: External ea rs normal, canals clear.Oropharynx: Lips, mucosa, and tongue normal, teeth and gums normal, oropharynxnormal.Lungs: Lung s clear to auscultation. No wheezing, rhonchi, rales.Heart: RRR without murmur, gallop, or r ubs. No ectopy.Abdomen: Abdomen soft, tender to LUQ and LLQ with palpation. Possiblesplenomegaly with tender ness. Bowel sounds normal. No masses.Extremities: No defor mities, edema, skin discoloration, clubbing or cyanosis.Good capillary refill.Peripheral Pulses: Normal.Neurologic: Gait normal. Reflexes normal and symmetric. Sensation grossly intact..Lymph Nodes: No cervical lymphadenopathy, No supraclavicular lymphadenopa thy.ASSESSMENT/PLAN:1. LLQ abdominal pain - ICD9: 789.04, ICD10: R10.32 (primary diagn osis)- Work up with CT Abdomen/Pelvis. Will check stool studies as well. Had recentlabs.- Fo llow up if worsening of symptoms- CT ABD/PEL W IVCON- IV CONTRAST (RADIOLOGY PROCEDUR E)- ENTERIC CONTRAST (RADIOLOGY PROCEDURE)- STOOL CULTURE/EIA- C. DIFFICILE PCR2. Fatigue, unspecified type - ICD9: 780.79, ICD10: R53.83- Unclear etiology. I do not think it is related to EBV IGG being positive.Will check for enlarged spleen however.Follow up as needed or with any w orsening.Niels Vargas CNP 12/29/2016 2:[address].Provide stool samples.We will notify you o f results once they are back.Referring Provider: SELF [[id number]]Allergies As of Date: 0 12/29/2016 Noted Allergy ReactionATIVAN (LORAZEPAM) 09/13/2015 1 - Mental Status ChangeDate R eviewed: 12/29/2016Reviewed by: Lionel (David) Court - Fully AssessedReason for Vis it: Recheck [92]Primary Visit Diagnosis:LLQ abdominal pain [R10.32] Other Visit Diagnos is:Fatigue, unspecified type [R53.83]Order(s):CT ABD/PEL W IVCON [[id number]] Order #: [id number] FUTURE iv contrast (radiology procedure)CT ABD/PEL -Inject, intravenously, once for 1 dose.No IV access, insert saline lock prior to the beginning of sedation, infus ion, injection of imaging exam. Discontinue saline lock post exam. If Pt. has a central l ine or IVAD, may access for administration according to line specific nursing protocol. O nce exam is complete flush line and de-access according to line specific nursing protocol in the CT contrast administration guidelines link.Disp: 1 EachRfl: 0 enteric contrast (radiology procedure)For CT ABD/PEL W IVCON Routine order Administer, As Directed One Time Only, via Oral, Rectal, both Oral and Rectal, Enteric Tube, Stoma or Indwelling Ca theter, Enteric Contrast as designated per enteric contrast guidelinesDisp: 1 EachRfl: 0 STOOL CULTURE/EIA [SQSTOCUL] Order #: [id number] FUTURE C. DIFFICILE PCR [SQCDPCR] Orde r #: [id number] as of 12/29/2016 Sig: IV CONTRAST (RADIOLOGY PROCED* CT ABD/PE L -Inject, intraveno* ENTERIC CONTRAST (RADIOLOGY P* For CT ABD/PEL W IVCON Routin* OXAP ROZIN 600 MG TABLET as needed. ONDANSETRON HCL 4 MG TABLET Take 1 tablet by mouth every * RO PINIROLE 2 MG TABLET Take 2 mg by mouth daily at b* TRAMADOL 50 MG TABLET Take 50 mg by mout h every 6 h* PRAMIPEXOLE ORAL Take by mouth. RIZATRIPTAN 10 MG TABLET DISS* Take 10 mg by m outh as needed* DULOXETINE 60 MG CAPSULE,KERRY* Take 60 mg by mouth once lee* PHENAZOPYRI DINE 100 MG TABLET Take 100 mg by mouth three ti*Problem List As Of Date 12/29/2016 Noted Resolved Depression [F32.9] INVALID FOR*01/04/2014 IBS (irritable bowel syndrome) [ K58.9] INVALID FOR* Constipation [K59.00] INVALID FOR* Mitral valve disorder [I05.9] INVAL ID FOR* Wrist pain [M25.539] INVALID FOR* Headache [R51] INVALID FOR* Sleep-related d issociative disorder [F44.9] INVALID FOR* Sacral back pain [M53.3] INVALID FOR* Epigast liliam swelling [R19.06] INVALID FOR* Dysphagia [R13.10] INVALID FOR* Abdominal pain [R10.9] INVALID FOR* Restless leg [G25.81] INVALID FOR* Hx of cholecystectomy [Z90.49] INV ALID FOR* Hx of appendectomy [Z90.49] INVALID FOR* Right inguinal pain [R10.31] INVAL ID FOR* Other instructions from your clinician: Have CT completed. Provide stool samples. We will notify you of results once they are back.Prescriptions ordered t his encounter Disp Refills Start End IV CONTRAST (RADIOLOGY PROCEDURE) 1 Ea* 0 7 12/30/2016 Class: In Office Sig: CT ABD/PEL -Inject, intravenously, once for 1 do se.No IV access, insert saline lock prior to the beginning of sedation, infusion, injectio n of imaging exam. Discontinue saline lock post exam. If Pt. has a central line or IVAD, may access for administration according to line specific nursing protocol. Once exam is complete flush line and de-access according to line specific nursing protocol in the CT c ontrast administration guidelines link. ENTERIC CONTRAST (RADIOLOGY PROCEDUR* 1 Ea* 0 12/29/2016 12/30/2016 Class: In Office Sig: For CT ABD/PEL W IVCON Routine order Administ er, As Directed One Time Only, via Oral, Rectal, both Oral and Rectal, Enteric Tube, Stoma or Indwelling Catheter, Enteric Contrast as designated per enteric contrast guidelinesM edications Discontinued During This Encounter ranitidine 150 mg tablet 12/29/2016 Class: Hist orical Med Route: ORAL Sig: Take 150 mg by mouth daily at bedtime. Disc: Reason for di scontinue is not on file. Ferrous Sulfate (IRON, FERROUS SULFA* 12/29/2016 Class: Historical Med Route: ORAL Sig: Take 325 mg by mouth daily with breakfast. Disc: Reason for discontinue is not on file. ascorbic acid (VITAMIN C) 500 mg tab* 12/29/2016 Class: Historical Med Route: ORAL Sig: Take 500 mg by mouth once daily. Disc: Reason for discontinue is no t on file. peg 3350-Electrolytes 236-22.74-6.74* 1 Jamar* 0 01/04/2014 12/29/2016 Class: P rint RX Sig: Take as instructed for colonoscopy prep. Disc: Reason for discontinue is no t on file. pantoprazole DR (PROTONIX) 40 mg tab* 09/06/2015 12/29/2016 Class: Historical Med Sig: as needed. Disc: Reason for discontinue is not on file. ibuprofen (MOTRIN) 600 mg tablet 09/06/2015 12/29/2016 Class: Historical Med Sig: as needed. Disc: Reason for dis continue is not on file. HYDROcodone-acetaminophen (NORCO) 5-* 09/06/2015 12/29/2016 Class: H istorical Med Sig: as needed. Disc: Reason for discontinue is not on file. ciprofloxacin H Cl (CILOXAN) 0.3 % op* 1 Jamar* 0 11/11/2016 12/29/2016 Route: RIGHT EYE Sig: Use 1 Drop in the r ight eye four times daily. Disc: Reason for discontinue is not on file. cyclobenzaprine (FL EXERIL) 10 mg tab* 12/29/2016 Class: Historical Med Route: ORAL Sig: Take 10 mg by mouth thr ee times daily as needed. Disc: Reason for discontinue is not on file. NITROFURANTOIN MONO HYD/M-CRYST (MACR* 12/29/2016 Class: Historical Med Route: ORAL Sig: Take by mouth. Disc: Re ason for discontinue is not on file.Follow-up and Disposition History RecordedEncountlori Cast er: [id number] Status:Closed by LIONEL SCHUMACHER CNP on 12/29/16 cnpn on 2016-12-23 CNPN Telephone Normal 12-23-2016 Percy (UCWSTR) --------[facility] LILI BLACKBURN ([id number]) 04/[birth year] F CHTDate Time Provider Department12/23/16 SONA WOOD (DAVID) [facility] During your vis it today, we recorded the following information about you:Sona ([id number]) DAVID Wood 12/23/2016 12:49 PM SignedPlease inform patient that test is positive for mono, advise to rest as much aspos sible, no strenous activity, avoid contact sport activity. Advise to go toER for any morrow dden change or worsening symptoms, or abdominal pain. Keep followup on 12/29 with Sandra Banerjee Ma 12/23/2016 12:52 PM Signednotified pt. Sherry Andre A s of Date: 12/23/2016 Noted Allergy ReactionATIVAN (LORAZEPAM) 09/13/2015 1 - Mental Status ChangeDate Reviewed: 12/22/2016Reviewed by: Gretta Mcmahon (Shantanu) DAVID Romero - Fully AssessedR joan for Visit: Results [95]Prescriptions as of 12/23/2016 Sig: MACROBID ORAL Take by m outh. CYCLOBENZAPRINE 10 MG TABLET Take 10 mg by mouth three connor* CIPROFLOXACIN 0.3 % EYE DROPS Use 1 Drop in the right eye f* HYDROCODONE 5 MG-ACETAMINOPHE* as needed. IBUPROFEN 600 MG TABLET as needed. OXAPROZIN 600 MG TABLET as needed. PANTOPRAZOLE 40 MG T ABLET,DEL* as needed. PEG 3350-ELECTROLYTES 236 GRA* Take as instructed for colono* ONDAN SETRON HCL 4 MG TABLET Take 1 tablet by mouth every * ASCORBIC ACID (VITAMIN C) 500* Take 5 00 mg by mouth once juan francisco* FERROUS SULFATE 325 MG (65 MG* Take 325 mg by mouth daily wi* RA NITIDINE 150 MG TABLET Take 150 mg by mouth daily at* ROPINIROLE 2 MG TABLET Take 2 mg by mouth daily at b* TRAMADOL 50 MG TABLET Take 50 mg by mouth every 6 h* PRAMIPEXOLE ORAL Take by mouth. RIZATRIPTAN 10 MG TABLET DISS* Take 10 mg by mouth as needed* DULOXETI NE 60 MG CAPSULE,KERRY* Take 60 mg by mouth once lee* PHENAZOPYRIDINE 100 MG TABLE T Take 100 mg by mouth three ti*Problem List As Of Date 12/23/2016 Noted Resolved De pression [F32.9] INVALID FOR*01/04/2014 IBS (irritable bowel syndrome) [K58.9] INVALID FO R* Constipation [K59.00] INVALID FOR* Mitral valve disorder [I05.9] INVALID FOR* Wrist p ain [M25.539] INVALID FOR* Headache [R51] INVALID FOR* Sleep-related dissociative d isorder [F44.9] INVALID FOR* Sacral back pain [M53.3] INVALID FOR* Epigastric swelling [R1 9.06] INVALID FOR* Dysphagia [R13.10] INVALID FOR* Abdominal pain [R10.9] INVALID FOR* Re stless leg [G25.81] INVALID FOR* Hx of cholecystectomy [Z90.49] INVALID FOR* Hx of appendect hany [Z90.49] INVALID FOR* Right inguinal pain [R10.31] INVALID FOR* 716Encounter Status:Closed by SONA WOOD CNP on 12/23/16 xr chest 2 view on 2016-12-22 XR CHEST 2 * * *Final Report* * *DATE OF EXAM: Garrett lindsey 12-22-2016 [place] VIEW Dec 22 2016 2:52PM WOX [id number] - XR Clinic CHEST 2 VIEW / ACCESSION # [place] [id number] REASON: Other (21042) fatigue * * * * Physician Interpretation * * * * EXAMINATION: CHEST RADIOGRAPH (2 VIEW FRONTAL and LATERAL)Clinical History: Other fatigueM: XC2_3Comparison: None.RESULT:Lines, tubes, and devices: None.Lungs and pleura: No consolidation. Left apical capping noted. No lung mass. No pleural effusion.Cardiomediastinal silhouette: Normal cardiomediastinal silhouette.Other: None.IMPRESSION:No acute radiographic abnormality.Dcs Engineer: JONATHON Transcribe Date/Time: Dec 22 2016 3:05PDictated by : AQUILINO OSWALD MDThiheide examination was interpreted and the report reviewed and electronically signed by: AQUILINO OSWALD MD on Dec 22 2016 3:06PM EST tsh on 2016-12-22 Thyroid stimulating 1.930 0.400-5.500 uU/mL Normal 12-23-19 [facility] hormone (TSH) Radha and ([id number]) Comment: Result Comment: If the patie nt is , TSH reference range varies by gestational period:First Tri mester 0.100-2.500 uU/mLSecond Trimester 0.200-3.000 uU/mLThird Trime ster 0.300-3.000 uU/mLReferences: 1. De Evan L, Anne M, Cirilo EK, e t al. Management of Thyroid Dysfunction during and : An Endocrine Society Clinical Practice Guideline. J Clin Endocrinol Metab, 201 2:97:4855-3322. 2. Delgado DAVIS. Overview of thyroid disease in . UpToDa te. 2016. Accessed on November 30, 2015. Performed By: #### CBCDIF, C MP, TSH ####[facility] [address], [place] [address] [phone] progress on 2016-12 PROGRESS HNO ID: [id number]: Normal 12-13 [facility] Nicko Delgado (Rt) Percy Watts ([id number]) TechService: (none)Author Type: TechnicianType: Progress NotesFiled: 12/22/2016 2:48 PMNote Text: Radiology Service Progress NotePATIENT NAME: Lili RaeMRN: [id number] OF SERVICE: December 22, 2016TIME: 2:44 PMPATIENT IDENTITY VERIFICATION COMPLETED USING TWO (2) METHODS: Patientconfirmed name verbally and Date of .PATIENT GENDER DATA: Female. status: : NoBreastfeeding status: NO.PATIENT RELEVANT IMPLANT DATA REVIEWED: Not ApplicableRADIOLOGY DEPARTMENT: General X-ray: Exam(s) Completed: Chest X-RayPERIPHERAL IV DATA: Not applicableSIGNED BY: Ga Hoover 2016 2:44 PM PROGRESS HNO ID: [id number]: Normal 12-13 [facility] Gretta Mcmahon (Car Ferrier) Percy Romero ([id number]) CNPService: (none)Author Type: Nurse PractitionerType: Progress NotesFiled: 12/22/2016 4:28 PMNote Text:HPIPatient presents with:Fatigue: dull, intermittent headache x 2 weeksDenies any URI symptoms or allergies.Pt denies hx of MonoStates hx of migrainesUse of home medication for migraines with moderate relief. Pt statesheadaches are not similar to migraines.Review of SystemsConstitutional: Positive for chills, fever and malaise/fatigue. Pt states gets easily fatigued with normal activityHENT: Negative for congestion, ear pain and sore throat.Eyes: Negative for discharge and redness.Respiratory: Negative for cough.Cardiovascular: Negative for chest pain, palpitations, orthopnea and legswelling.Gastrointestinal: Negative for abdominal pain, diarrhea, nausea andvomiting.Skin: Negative for rash.Neurological: Positive for headaches. Negative for dizziness and tingling.All other systems reviewed and are negative.PAST MEDICAL HISTORYDiagnosis Date- Arthritis jaw and neck joints- Chronic cystitis- GERD (gastroesophageal reflux disease)- Irritable bowel syndrome- Migraine- Restless leg syndromePAST SURGICAL [id number]: APPENDECTOMY09/06/15: ENDOMETRIAL ABLATION WITH US GUIDANCE09/06/15: [id number]: PAST SURGICAL HISTORY OF Comment: [id number]: PAST SURGICAL HISTORY OF Comment: bladder distention for chronic interstitial cystitis09/06/15: PAST SURGICAL HISTORY OF Bilateral Comment: lap salpingectomy09/06/15: PAST SURGICAL HISTORY OF Comment: diagnostic laparoscopy09/06/15: PAST SURGICAL HISTORY OF Comment: dilation and [id number], : PAST SURGICAL HISTORY OF Comment: nerve blocksALLERGIES Ativan [Lorazepam]MEDICATIONScyclobenza yamilka (FLEXERIL) 10 mg tablet Take 10 mg by mouth three timesdaily as needed.ibuprofen (MOTRIN) 600 mg tablet as needed.oxaprozin (DAYPRO) 600 mg tablet as needed.pantoprazole DR (PROTONIX) 40 mg tablet as needed.ondansetron (ZOFRAN, HYDROCHLORIDE,) 4 mg tablet Take 1 tablet by mouthevery 8 hours as needed (for nausea.).ranitidine 150 mg tablet Take 150 mg by mouth daily at bedtime.rOPINIRole 2 mg tablet Take 2 mg by mouth daily at bedtime.traMADol 50 mg tablet Take 50 mg by mouth every 6 hours as needed.PRAMIPEXOLE DI-HCL (PRAMIPEXOLE ORAL) Take by mouth.rizatriptan (MAXALT-CLOTH SHEARING SUPERVISOR) 10 mg disintegrating tablet Take 10 mg by mouthas needed. May repeat in 2 hours if neededDULoxetine 60 mg capsule Take 60 mg by mouth once daily.phenazopyridine 100 mg tablet Take 100 mg by mouth three times daily asneeded.NITROFURANTOIN MONOHYD/M-CRYST (MACROBID ORAL) Take by mouth.ciprofloxacin HCl (CILOXAN) 0.3 % ophthalmic solution Use 1 Drop in theright eye four times daily.HYDROcodone-acetaminophen (NORCO) 5-325 mg per tablet as needed.peg 3350-Electrolytes 236-22.74-6.74 gram suspension Take as instructedfor colonoscopy prep.ascorbic acid (VITAMIN C) 500 mg tablet Take 500 mg by mouth once daily.Ferrous Sulfate (IRON, FERROUS SULFATE,) 325 mg (65 mg iron) tablet Thkp423 mg by mouth daily with breakfast.FAMILY HISTORY high blood pressure [Other] [OTHER] Mother high blood pressure [Other] [OTHER] Father high blood pressure [Other] [OTHER] Brother high blood pressure [Other] [OTHER] Sister high blood pressure [Other] [OTHER] Maternal Grandmother Cancer Maternal Grandmother Comment: skin, pancreatic Cancer Paternal Uncle Comment: bladderSocial HistorySubstance Use Topics- Smoking status: Former Smoker Packs/day: 0.50 Years: 4.00 Types: Cigarettes Quit date: 07/06/1999- Smokeless tobacco: Not on file- Alcohol use NoPhysical ExamConstitutional: She is well-developed, well-nourished, and in no distress.HENT:Head: Normocephalic.Right Ear: External ear normal.Left Ear: External ear normal.Nose: Nose normal.Mouth/Throat: Oropharynx is clear and moist.Eyes: Conjunctivae are normal.Neck: Normal range of motion. Neck supple.Cardiovascular: Normal rate, regular rhythm and normal heart sounds.Pulmonary/Chest: Effort normal and breath sounds normal. No respiratorydistress. She has no wheezes. She has no rales. She exhibits notenderness.98% pulse ox on RAAbdominal: Soft. She exhibits no distension. There is no tenderness.Lymphadenopathy: She has no cervical adenopathy.Skin: Skin is warm and dry. No rash noted.Nursing note and vitals reviewed.ASSESSMENT/PLAN:1. Fatigue, unspecified type - ICD9: 780.79, ICD10: R53.83- Reviewed red flags and when to seek care sooner.- Walked to [facility] to one time f/u with primary care.- F/u with pcp in 3-5 days or sooner if symptoms are not improving orworsening-Pt states she is unable to get appt with primary for 2 weeks.- XR CHEST AP/LAT-final results- CBC + DIFF- COMP METABOLIC PANEL- TSH BLD- HUSAM CELESTIN PANELPrescription instructions reviewed with patient as applicable. Patientadvised if symptoms do not improve or if symptoms worsen sooner, tocontact their primary care physician. Potential red flag symptomsdiscussed with the patient. Reviewed appropriate action plan to take ifred flag symptoms occur. Patient agreeable to treatment plan.Gretta Romero CNP ebv antibody panel on 2016-12-22 EBV EA Ab, Qual Negative Negative Normal 12-22-2016 [facility] ([id number]) Comment: Result Comment: EBV EA-D IgG antibodies are not detectable. If the result is negative and exposure to Eps tein-Celestin virus is suspected, a second sample should be collected and test ed no less than one to two weeks later. Performed By: #### EBVPNL ## ##[facility] [place], [place] [phone] EBV EA Antibody <0.2 Normal 12-22-2016 [facility] (04510) Comment: Result Comment: AI VALUES AR E INTERPRETED FOLLOWS:NEGATIVE SPECIMENS <=0.8EQUIVOCAL SPECIMENS 0.9 TO 1.0POSITIVE SPECIMENS >=1.1Antibody index(AI) values reflect raleigh litative changes in antibody concentration that cannot be associated with cl inical condition or disease state. Performed By: #### EBVPNL ## ##[address] [id number]- [phone] EBV Interpretation See below Normal 12-22-2016 [facility] (37472) Comment: Result Comment: (NOTE)Syndro me EBV VCA EBV VCA EBV EA EBV NA IgM IgGNo EBV Neg Neg Neg NegAcute Infecti on Pos Pos Pos PosPast Infection Neg Pos Neg PosReactivation Pos or Neg P os Pos or Neg Pos Note: EBV NA appears last in acute infection Performed By: #### EBVPNL ## ##[address] [id number]- [phone] EBV NA Ab, Qual Positive Negative Critically abnormal 12-13 [facility] (48889) Comment: Result Comment: Specimen is positive for EBV NA-1 IgG antibody. A positive test result presumes a curre nt or past infection with EBV. Other EBV serology assays such as the EBV VCA IgM should be performed to confirm serologic status, active acu te, past or indeterminate infection for EBV-associated infectious mo nonucleosis. Performed By: #### EBVPNL ## ##[address] [phone]- [phone] EBV NA Antibody >8.0 Normal 12-22-2016 [facility] (10301) Comment: Result Comment: AI VALUES AR E INTERPRETED FOLLOWS:NEGATIVE SPECIMENS <=0.8EQUIVOCAL SPECIMENS 0.9 TO 1.0POSITIVE SPECIMENS >=1.1Antibody index(AI) values reflect raleigh litative changes in antibody concentration that cannot be associated with cl inical condition or disease state. Performed By: #### EBVPNL ## ##[place] [address], [place] [id number] [phone] EBV VCA IgG 5.8 AI Normal 12-22-2016 [facility] (73636) Comment: Result Comment: AI VALUES AR E INTERPRETED FOLLOWS:NEGATIVE SPECIMENS <=0.8EQUIVOCAL SPECIMENS 0.9 TO 1.0POSITIVE SPECIMENS >=1.1Antibody index (AI) values reflect qualitat karine changes in antibody concentration that cannot be associated with cl inical condition or disease state. Performed By: #### EBVPNL ## ##[address] [phone]- [phone] EBV VCA IgG, Positive Negative Critically abnormal 017 [facility] (58816) Comment: Result Comment: Specimen is positive for EBV VCA IgG antibody. A positive test result presumes a curre nt or past infection with EBV. Other EBV serology assays such as the EBV VCA IgM should be performed to confirm serologic status, active acu te, past or indeterminate infection for EBV-associated infectious mo nonucleosis. Performed By: #### EBVPNL ## ##[address] [phone]- [phone] EBV VCA IgM 0.8 AI Normal 12-22-2016 [facility] (07950) Comment: Result Comment: AI VALUES AR E INTERPRETED FOLLOWS:NEGATIVE SPECIMENS <=0.8EQUIVOCAL SPECIMENS 0.9 TO 1.0POSITIVE SPECIMENS >=1.1The magnitude of the reported IgM level canno t be correlated to an endpoint titer (or clinical status). Performed By: #### EBVPNL ## ##[address] Av[address], [place] [phone] EBV VCA IgM, Qual Negative Negative Normal 12-22-2016 [facility] (94491) Comment: Result Comment: EBV VCA IgM antibodies are not detectable. Performed By: #### EBVPNL ## ##[address] [place], [place] [phone]- [phone] comp metabolic panel on 2016-12-22 Alanine aminotransferase (ALT) 35 7-38 U/L Normal 12-22-2016 [facility] (97783) Comment: Performed By: #### CBCDIF, C MP, TSH ####[place] [address] [place] [place] [address] [phone] Albumin 4.5 3.9-4.9 g/dL Normal 12-22-2016 [facility] (42220) Comment: Performed By: #### CBCDIF, C MP, TSH ####[place] [address] AveCElizabeth [place]ille [phone] Alkaline phosphatase (ALP) 63 32-117 U/L Normal [facility] (29373) Comment: Performed By: #### CBCDIF, C MP, TSH ####[place] [address] [place] [phone] Anion gap 14 9-18 mmol/L Normal 12-22-2016 [facility] (40881) Comment: Performed By: #### CBCDIF, C MP, TSH ####[place] [address] [place] [phone] Aspartate aminotransferase 24 13-35 U/L Normal [facility] (42875) Comment: Performed By: #### CBCDIF, C MP, TSH ####[place] [address] [place] [phone] Bilirubin (total) 0.3 0.2-1.3 mg/dL Normal 12-22-2016 [facility] (64234) Comment: Performed By: #### CBCDIF, C MP, TSH ####[place] [address] [place] [address] [phone] Calcium 10.3 8.5-10.2 mg/dL High 12-22-2016 [facility] (38577) Comment: Performed By: #### CBCDIF, C MP, TSH ####[facility] [place] [address] Chloride 99 97-105 mmol/L Normal 12-22-2016 [facility] (88557) Comment: Performed By: #### Coral SANCHEZ MP, TSH ####[place] [address] [place] [address] CO2 25 22-30 mmol/L Normal 12-22-2016 [facility] (74623) Comment: Performed By: #### Coral SANCHEZ MP, TSH ####[place] [address] [address] Creatinine 0.63 0.58-0.96 mg/dL Normal 12-22-2016 [facility] (50134) Comment: Performed By: #### Coral SANCHEZ MP, TSH ####[place] [address] [place] [address] eGFR (non-black) >60 mL/min/{1.73_m2} Normal 2016 [facility] (08503) Comment: Result Comment: eGFR (Estima ana GFR) Units of measure: mL/min/1.73 meters squaredeGFR is derived from the reexpressed MDRD Study equation using the following parameters: serum creatinine, age, gender and race. The creatinine assay has been calibrated to be traceable to IDMS.An eGFR <60 mL/min/1.73m2 for >3 months is consistent with chronic kidney disease. Refer to KDOQI guidelines for clinical inte rpretation.In patients with unstable renal function, e.g. those with ac [place] kidney injury, the eGFR may not accurately reflect actual GFR. Performed By: #### Coral SANCHEZ MP, TSH ####[place] [id number] [place] [address] Glucose mass conc 69 74-99 mg/dL Low 12-22-2016 [facility] (43034) Comment: Result Comment: The [place] Diabetes Association (ADA) provides guidance for cutoff values for fastin g glucose and random glucose. The ADA defines fasting as no caloric intake for at least 8 hours. Fasting plasma glucose results between 100 to 125 m g/dL indicate increased risk for diabetes (prediabetes).Fasting plasma glucose results greater than or equal to 126 mg/dL meet the criteria for diagnosis of diabetes. In the absence of unequivocal hyperglycemia, r esults should be confirmed by repeat testing. In a patient with classic sympt oms of hyperglycemia or hyperglycemic crisis, random plasma glucose result s greater than or equal to 200 mg/dL meet the criteria for diagnosis of di abetes.Reference: Standards of Medical Care in Diabetes 2016, [place] Diab etes Association. Diabetes Care. 2016.39(Suppl 1). Performed By: #### Coral SANCHEZ MP, TSH ####[facility] [place] [address] [phone] Potassium molar conc 4.1 3.7-5.1 mmol/L Normal 7 [facility] (20900) Comment: Performed By: #### Coral SANCHEZ MP, TSH ####[facility] [address] [place] [address] [phone] Protein 7.5 6.3-8.0 g/dL Normal 12-22-2016 [facility] (84460) Comment: Performed By: #### CBCMICHAELFCoral MP, TSH ####[facility] [place] [address] [phone] Sodium 138 136-144 mmol/L Normal 12-22-2016 [facility] (67208) Comment: Performed By: #### CBCMICHAELFCoral MP, TSH ####[facility] [address] AveCSandra [place] [address] [phone] Urea nitrogen 16 7-21 mg/dL Normal 12-22-2016 [facility] (64482) Comment: Performed By: #### CBCMICHAELFCoral MP, TSH ####[facility]CS[place] [address] [phone] cnov on 2016-12-22 CNOV Office Visit Normal 12-22-2016 Radha and ([facility]) --------[facility] BLACKBURNLILI WOODARD ([id number]) 04/16 F CHTDate Time Provider Department12/22/16 1:45 PM Percy ROMERO (REHABILITATION TEACHER) [facility] During your visit today, we recorded the following information about (27778) you: Temperature Pulse Respi ration Blood pressure 98.4 degrees 80/minute 18/minute 102/74 Weight Last Period 61.7 kg 12/08/16Rubia Romero CNP, DAVID 12/22/2016 4:28 PM SignedHPIPatient presents wi th:Fatigue: dull, intermittent headache x 2 weeksDenies any URI symptoms or allergies.Pt den ies hx of MonoStates hx of migrainesUse of home medication for migraines with moderate reli ef. Pt states headachesare not similar to migraines.Review of SystemsConstitutional: Posit karine for chills, fever and malaise/fatigue. Pt states gets easily fatigued with normal activityHENT: Negative for congestion, ear pain and sore throat.Eyes: Negative for discharge and redness.Respiratory: Negative for cough.Cardiovascular: Negative for chest pain, palpitations, orthopnea and legswelling.Gastrointestinal : Negative for abdominal pain, diarrhea, nausea and vomiting.Skin: Negative for rash.Neurological: Positive for headaches. Negative for dizziness and tingling.All o ther systems reviewed and are negative.PAST MEDICAL HISTORYDiagnosis Date- Arthritis jaw and neck joints- Chronic cystitis- GERD (gastroesophageal reflux dis ease)- Irritable bowel syndrome- Migraine- Restless leg syndromePAST SURGICAL HISTOR Y2004: APPENDECTOMY09/06/15: ENDOMETRIAL ABLATION WITH US GUIDANCE09/06/15: HYSTEROSCOP Y2006: PAST SURGICAL HISTORY OF Comment: [id number]: PAST SURGICAL HISTORY OF Comment: bladder disten tion for chronic interstitial cystitis09/06/15: PAST SURGIC AL HISTORY OF Bilateral Comment: lap salpingectomy09/06/15: PAST SURGICAL HISTORY OF Comment: diagnostic laparoscopy09/06/15: PAST SURGICAL HISTORY OF Comment: dilation and curett age04, 06, 09: PAST SURGICAL HISTORY OF Comment: nerve blocksALLERGIES Ativan [Anya zepam]MEDICATIONScyclobenzaprine (FLEXERIL) 10 mg tablet Take 10 mg by mouth three times dailyas needed.ibupro fen (MOTRIN) 600 mg tablet as needed.oxaprozin (DAYPRO) 60 0 mg tablet as needed.pantoprazole DR (PROTONIX) 40 mg tablet as needed.ondansetron (ZOFRA N, HYDROCHLORIDE,) 4 mg tablet Take 1 tablet by mouthevery 8 hours as needed (for nausea. ).ranitidine 150 mg tablet Take 150 mg by mouth daily at bedtime.rOPINIRole 2 mg tabl et Take 2 mg by mouth daily at bedtime.traMADol 50 mg tablet Take 50 mg by mouth every 6 hours as needed.PRAMIPEXOLE DI-HCL (PRAMIPEXOLE ORAL) Take by mouth.rizatriptan (MAXALT-ML T) 10 mg disintegrating tablet Take 10 mg by mouth asneeded. May repeat in 2 hours if nee dedDULoxetine 60 mg capsule Take 60 mg by mouth once daily.phenazopyridine 100 mg tablet Take 100 mg by mouth three times daily as needed.NITROFURANTOIN MONOHY D/M-CRYST (MACROBID ORAL) Take by mouth.ciprofloxacin HCl (CILOXAN) 0.3 % ophthalmic solution Use 1 Drop in the righte ye four times daily.HYDROcodone-acetaminop hen (NORCO) 5-325 mg per tablet as needed.peg 3350-Electrolytes 236-22.74-6.74 gram suspensi on Take as instructed forcolonoscopy prep.ascorbic acid (VITAMIN C) 500 mg tablet Ta ke 500 mg by mouth once daily.Ferrous Sulfate (IRON, FERROUS SULFATE,) 325 mg (65 mg iron ) tablet Take 325 mgby mouth daily with breakfast.FAMILY HISTORY high blood pressure [Other] [OTHER] Mother high blood pressure [Other] [OTHER] Father high blood pressure [ Other] [OTHER] Brother high blood pressure [Other] [OTHER] Sister high blood pressure [ Other] [OTHER] Maternal Grandmother Cancer Maternal Grandmother Comment: skin, pancreatic Ca ncer Paternal Uncle Comment: bladderSocial HistorySubstance Use Topics- Smoking status: Form er Smoker Packs/day: 0.50 Years: 4.00 Types: Cigarettes Quit date: 07/06/1999- Smokeless t obacco: Not on file- Alcohol use NoPhysical ExamConstitutional: She is well-developed, well- nourished, and in no distress.HENT:Head: Normocephalic.Right Ear: External ear normal.Lef t Ear: External ear normal.Nose: Nose normal.Mouth/Throat: Oropharynx is clear and mois t.Eyes: Conjunctivae are normal.Neck: Normal range of motion. Neck supple.Cardiovascular: Normal rate, regular rhythm and normal heart sounds.Pulmonary/Chest: Effo rt normal and breath sounds normal. No respiratorydistress. She has no wheezes. She has no r ales. She exhibits no tenderness.98% pulse ox on RAAbdominal: Soft. She exhibits no disten rene. There is no tenderness.Lymphadenopathy: She has no cervical adenopathy.Skin: Sk in is warm and dry. No rash noted.Nursing note and vitals reviewed.ASSESSMENT/PLAN:1. Fatigue, unspecified type - ICD9: 780.79, ICD10: R53.83- Reviewed red flags and when to seek care sooner.- Walked to [facility] to one time f/u with primary care.- F/u with pcp in 3-5 days or sooner if symptoms are not improving orworsening-Pt states she is unable to get appt with primary for 2 weeks.- XR CHEST AP/LAT-final results- CBC + DIFF- COMP METABOLIC PANEL- TSH BLD- HUSAM CELESTIN PANELPrescription instructio ns reviewed with patient as applicable. Patient advisedif symptoms do not improve or i f symptoms worsen sooner, to contact theirprimary care physician. Potential red fla g symptoms discussed with thepatient. Reviewed appropriate action plan to take if red f lag symptoms occur.Patient agreeable to treatment plan.Gretta Romero CNPReferring Provid er: SELF [200]Allergies As of Date: 12/22/2016 Noted Allergy ReactionATIVAN (LORAZEPAM) 09/13/2015 1 - Mental Statu s ChangeDate Reviewed: 12/22/2016Reviewed by: Rubia Mcmahon (Car Ferrier) DAVID Romero - Fully AssessedReason for Visit: Fatigue [46] Cmt: headache x 2 weeksReason For Visit History Recorde dPrimary Visit Diagnosis:Fatigue, unspecifi ed type [R53.83]Order(s):XR CHEST AP/LAT [3961459] Order #: [id number] FUTURE CBC + DIFF [SQCBCDIF] Order #: [id number] FUTURE COMP METABOLIC PANEL [SQCMP] Order #: [id number] FUTURE TSH BLD [SQTSH] Order #: [id number] FUTURE HUSAM CELESTIN PANEL [SQEBVPAN] Order #: [id number] FUT UREPrescriptions as of 12/22/2016 Sig: CYCLOBENZAPRINE 10 MG TABLET Take 10 mg by mouth three connor* IBUPROFEN 600 MG TABLET as needed. OXAPROZIN 600 MG TAB LET as needed. PANTOPRAZOLE 40 MG TABLET,DEL* as needed. ONDANSETRON HCL 4 MG TABLET Take 1 tablet by mouth every * RANITIDINE 150 MG TABLET Take 150 mg by mouth daily at* RO PINIROLE 2 MG TABLET Take 2 mg by mouth daily at b* TRAMADOL 50 MG TABLET Take 50 mg by mout h every 6 h* PRAMIPEXOLE ORAL Take by mouth. RIZATRIPTAN 10 MG TABLET DISS* Take 10 mg by m outh as needed* DULOXETINE 60 MG CAPSULE,KERRY* Take 60 mg by mouth once lee* PHENAZOPYRI DINE 100 MG TABLET Take 100 mg by mouth three ti* MACROBID ORAL Take by mouth. CIPROFLOXACIN 0.3 % EYE DROPS Use 1 Drop in the right eye f* HYDROCODONE 5 MG-ACETAMINOPHE* as needed. PEG 3350-ELECTROLYTES 236 GRA* Take as instructed for colono* ASCORBIC ACID (VITAMIN C) 50 0* Take 500 mg by mouth once juan francisco* FERROUS SULFATE 325 MG (65 MG* Take 325 mg by mouth juan francisco ly wi*Medication notes this encounter MACROBID ORAL >> Sherry Aiken Ma 12/22/2016 1:54 PM >> SHERRY AIKEN MA ThuDec 22, 2016 1:54 PM done CIPROFLOXACIN 0.3 % EYE DROP S >> Sherry Aiken Ma 12/22/2016 1:54 PM >> SHERRY AIKEN MA ThuDec 22, 2016 1:54 PM don ann HYDROCODONE 5 MG-ACETAMINOPHEN 325 MG TABLET >> Sherry Aiken Ma 12/22/2016 1:54 PM >> SHERRY AIKEN MA Dec 22, 2016 1:54 PM doneProblem List As Of Date 12/22/2016 Noted Resolved Depression [F32.9] INVALID FOR*01/04/2014 IBS (irritable bowel syndrome) [ K58.9] INVALID FOR* Constipation [K59.00] INVALID FOR* Mitral valve disorder [I05.9] INVAL ID FOR* Wrist pain [M25.539] INVALID FOR* Headache [R51] INVALID FOR* Sleep-related d issociative disorder [F44.9] INVALID FOR* Sacral back pain [M53.3] INVALID FOR* Epigast liliam swelling [R19.06] INVALID FOR* Dysphagia [R13.10] INVALID FOR* Abdominal pain [R10.9] INVALID FOR* Restless leg [G25.81] INVALID FOR* Hx of cholecystectomy [Z90.49] INV ALID FOR* Hx of appendectomy [Z90.49] INVALID FOR* Right inguinal pain [R10.31] INVAL ID FOR*Disposition: Return if symptoms worsen or fail to improve.Follow-up and Dispos ition History RecordedEncounter Number: [id number] Status:Closed by GRETTA ROMERO on 12/22/16 cbc and differential on 2016-12-22 Abs Baso 0.03 0.00-0.10 k/uL Normal 12-22-2016 [facility] (87222) Comment: Performed By: #### CBCCoral VILLEDA MP, TSH ####[facility] [address] [place] [address] [phone] Abs Crawford 0.70 0.00-0.86 k/uL Normal 12-22-2016 [facility] (27658) Comment: Performed By: #### Coral SANCHEZ MP, TSH ####[facility] [address] [place] [address] [phone] Abs Neut 7.85 1.45-7.50 k/uL High 12-22-2016 [facility] (84378) Comment: Performed By: #### CBCDIF, C MP, TSH ####[facility] [address] AveClevelandEllen [place] [address] [phone] Basophils/100 WBC Auto (Bld) 0.2 % Normal 0 12-22-2016 [facility] (08070) Comment: Performed By: #### CBCDIF, C MP, TSH ####[facility] [address] AveClevelAndrew [place]ille [address] [phone] DTYPE Auto Diff Normal 12-22-2016 [facility] (52071) Comment: Performed By: #### CBCDIF, C MP, TSH ####[facility] AveCSandra [place] [address] [phone] Eosinophils 0.07 0.00-0.45 k/uL Normal 12-22-2016 [facility] (71960) Comment: Performed By: #### CBCDIF, C MP, TSH ####[facility] [address] AveClevelAndrew [place] [address] [phone] Eosinophils/100 leukocytes 0.6 % Normal [facility] (68818) Comment: Performed By: #### CBCDIF, C MP, TSH ####[facility] [address] AveClevelAndrew [place] [address] [phone] Erythrocyte distribution 13.1 11.5-15.0 % Normal 12-22 [facility] width Auto Ratio (RBC) [place] (03584) Comment: Performed By: #### CBCDIF, C MP, TSH ####[facility] [address] AveClevelAndrew [place] [address] [phone] Erythrocytes (RBC) 0.0 0 /100 WBC Normal 12-22-2016 [facility] (27949) Comment: Performed By: #### CBCDIF, C MP, TSH ####[facility] [address] AveClevelAndrew [place]ille [address] [phone] Erythrocytes (RBC) 4.44 3.90-5.20 m/uL Normal 12-22-2016 [facility] (08262) Comment: Performed By: #### CBCDIF, C MP, TSH ####[place] [address] AveCSandra [place] [address] [phone] Erythrocytes (RBC) 0.00 k/uL Normal 12-22-2016 [facility] (73744) Comment: Performed By: #### CBCDIF, C MP, TSH ####[place] [address] Ave[address] [place] [address] [phone] Hematocrit (HCT) 42.9 36.0-46.0 % Normal 12-22-2016 [facility] (83339) Comment: Performed By: #### CBCDIF, C MP, TSH ####[place] [address] [address] [phone] Hemoglobin mass conc 13.2 11.5-15.5 g/dL Normal [address] [place] [address] ([facility] (20493) Comment: Performed By: #### CBCDIF, C MP, TSH ####[place] [address] [place] [address] [phone] Lymphocytes 3.42 1.00-4.00 k/uL Normal 12-22-2016 [facility] ([id number]) Comment: Performed By: #### CBCDIF, C MP, TSH ####[place] [address] [address] [address] [phone] Lymphocytes/100 leukocytes 28.3 % Normal [facility] ([id number]) Comment: Performed By: #### CBCDIF, C MP, TSH ####[place] [id number] [place] [address] [phone] MCH 29.7 26.0-34.0 pG Normal 12-22-2016 [facility] ([id number]) Comment: Performed By: #### CBCDIF, C MP, TSH ####[place] [address] [place] [address] [phone] MCHC mass conc (RBC) 30.8 30.5-36.0 g/dL Normal 7 [facility] ([id number]) Comment: Performed By: #### CBCDIF, C MP, TSH ####[place] [address] [place] [address] [phone] MCV 96.6 80.0-100.0 fL Normal 12-22-2016 [facility] ([id number]) Comment: Performed By: #### CBCDIF, C MP, TSH ####[place] [address] [place] [address] [phone] Monocytes/100 leukocytes 5.8 % Normal 12-22 [facility] ([id number]) Comment: Performed By: #### CBCDIF, C MP, TSH ####[place] [address] [address] [address] [phone] Neutrophils/100 WBC Auto (Bld) 65.1 % Normal 12-22-2016 [facility] ([id number]) Comment: Performed By: #### CBCDIF, C MP, TSH ####[place] [address] [place] [address] [phone] Platelet mean volume 10.4 9.0-12.7 fL Normal 7 [facility] ([facility] ([id number]) Comment: Performed By: #### CBCDIF, C MP, TSH ####[place] [address] [place] [address] [phone] Platelets 391 150-400 k/uL Normal 12-22-2016 [facility] ([id number]) Comment: Performed By: #### CBCDIF, C MP, TSH ####[facility] [place] [address] [phone] WBC (Leukocytes) 12.07 3.70-11.00 k/uL High 12-22-2016 [facility] ([id number]) Comment: Performed By: #### CBCDIF, C MP, TSH ####[facility] [address] [place], [place] [address] [phone] Encounters Date Type Reason Provider Location 01-13-2017 - Ambulatory CHRISTOPHER (MATERIAL CUTTER) [facility] 01-13-2017 [facility] CHRISTOPHER (MATERIAL CUTTER) ([id number]) [facility] 12-31-2016 - Ambulatory CHRISTOPHER (MATERIAL CUTTER) [facility] 01-14-2017 [facility] ([id number]) 12-30-2016 - Ambulatory CHRISTOPHER (MATERIAL CUTTER) [facility] 01-01-2017 [facility] ([id number]) 12-30-2016 - Ambulatory CHRISTOPHER (MATERIAL CUTTER) [facility] 12-30-2016 [facility] ([id number]) 12-29-2016 - Ambulatory [facility] 12-29-2016 [place] ([id number]) 12-22-2016 - Ambulatory GRETTA S (REHABILITATION TEACHER) [facility] 12-24-2016 MALDONADO [facility] ([id number]) 12-22-2016 - Ambulatory LUCY (MATERIAL CUTTER) [facility] 12-23-2016 [facility] GRETTA S (REHABILITATION TEACHER) ([id number]) [place]AD[place] 03-18-2018 - Emergency IRAM HYDE Facility :B 03-18-2018 department patient RAVEN visit 01-08-2018 - Emergency DELGADO GOMEZ Facility:B 01-08-2018 department patient MARY ELLEN CARBAJAL visit 05-28-2018 - Patient encounter Palpitations MARY ELLEN CARBAJAL Facility :B 06-02-2018 procedure MARY ELLEN CARBAJAL 05-17-2018 - Patient encounter MARY ELLEN CARBAJAL Facility :B 05-18-2018 procedure MARY ELLEN CARBAJAL 2018 - Patient encounter Syncope and collapse WESTON RAVEN Facility:B 05-17-2018 procedure MARY ELLEN RAVEN Procedures Procedure Name Date Provider Location Microscopic examination of 01-02-2019 - [facility] blood, culture 01-02-2019 ([id number]) Comment: Order Comment: Specimen Sour ce Comment:Blood Performed By: #### HEMDF, LA CT3, CMP3, QWAL #### [facility] [address] [place] [address] Payers Payer Name Policy Number Location [facility] [id number] [facility] [place] ([address]369) [place] [employer] [id number] [facility] [place] ([address]227[place] [employer] [id number] [facility] [place] ([address]31) [facility] [employer] [id number] [facility] [place] ([address]444[place] [id number] [facility] [place] (71785) [id number] [facility] [place] (83639[place] [id number] [facility] [place] (74220[place] [id number] [facility] [place] (94700[place] [id number] [facility] [place] ([address]56[place] The following information is from the original human readable contentNo Payer Records FoundNo Payer Records FoundNo Payer Records FoundNo Payer Records FoundNo Payer Records Found Summary Purpose Family History No Family History Records FoundNo Family History Records FoundNo Family History Records FoundNo Family History Records Found Advance Directives No Advanced Directives Records FoundNo Advanced Directives Records FoundNo Advanced Directives Records FoundNo Advanced Directives Records Found Additional Source Comments FOR RECORDS PERTAINING TO PATIENTS WHO ARE OR HAVE BEEN ENROLLED IN A CHEMICAL DEPENDENCY/SUBSTANCE ABUSE PROGRAM, SOME INFORMATION MAY BE OMITTED. This clinical summary was aggregated from multiple sources. Caution should be exercised in using it in the provision of clinical care. This summary normalizes information from multiple sources, and as a consequence, information in this document may materially changethe coding, format and clinical context of patient data. In addition, data may be omittedin some cases. CLINICAL DECISIONS SHOULD BE BASED ON THE PRIMARY CLINICAL RECORDS. Contents [facility] provides no warranty or guarantee of the accuracy or completeness of information in this document. UNRECOGNIZED CONTENT PROVIDED BELOW FOR UNRECOGNIZED SECTION INFORMATION SOURCE DATE CREATED AUTHOR AUTHOR'S ORGANIZATIO N 12/09/2017 [facility] DATE CREATED AUTHOR AUTHOR'S ORGANIZATIO N 06/04/2018 [facility] [place] DATE CREATED AUTHOR AUTHOR'S ORGANIZATIO N 11/25/2018 [facility] DATE CREATED AUTHOR AUTHOR'S ORGANIZATIO N 01/19/2019 [facility]
== END ==
PROVIDERS: Family Provider Family Medicine; PCP Family Medicine; Referring Provider Obstetrics & Gynecology; Visit Provider Obstetrics & Gynecology
DX: Z01.818 Encounter for other preprocedural examination (principal)
CPT/HCPCS: 84703; 85027; 85610; 85730; 86850; 86900

== ENCOUNTER 2021-09-05 16:43 | Outpatient (CLI) | payer OTHER, SELFPAY | END 2021-09-05 23:59 | disposition home or self-care (01) | LOC: LABSPEC 16:44 | PROVIDERS: PCP Family Medicine; Visit Provider Urology | DX: R31.9 Hematuria, unspecified (principal) | CPT/HCPCS: 87086; 87088 ==

== ENCOUNTER → 2022-03-26 | Outpatient (CLI) | payer OTHER, SELFPAY | END | disposition home or self-care (01) | LOC: LABSPEC 11:17 | PROVIDERS: PCP Family Medicine; Visit Provider Urology | DX: R31.21 Asymptomatic microscopic hematuria (principal) | CPT/HCPCS: 87077; 87086; 87088; 87186 ==

== ENCOUNTER → 2022-06-12 | Outpatient (CLI) | payer OTHER, SELFPAY ==
--- NOTE | 2022-06-12 10:56 | MRI_ITS ---
INDICATION: Posterior neck pain EXAMINATION: MRI - MR Spine Cervical W/O Contrast TECHNIQUE: Multiplanar and multisequence MR images of the cervical spine were performed. IV Contrast Dosage and Agent: None. COMPARISON: 08/28/2016 FINDINGS: VERTEBRAE: Normal vertebral bodies and posterior elements. VERTEBRAL ALIGNMENT: Normal, including the craniocervical junction and cervicothoracic junction. No spondylolisthesis. There is preservation of the normal cervical lordosis. CERVICAL SPINAL CORD: Unremarkable in signal and morphology. C2/C3: Normal disc height and morphology. Normal spinal canal and neuroforamina. C3/C4: Normal disc height and morphology. Normal spinal canal and neuroforamina. C4/C5: Normal disc height and morphology. Normal spinal canal and neuroforamina. C5/C6: Normal disc height and morphology. Normal spinal canal and neuroforamina. C6/C7: Normal disc height and morphology. Normal spinal canal and neuroforamina. C7/T1: Normal disc height and morphology. Normal spinal canal and neuroforamina. NECK SOFT TISSUES: No prevertebral soft tissue swelling. There is no cervical adenopathy. MRI/Spine Cervical (Routine) IMPRESSION: Unremarkable MRI of the cervical spine. No finding to explain neck pain or limited range of motion. Electronically Signed: José Miguel Vanegas MD at 18:21 EST ,
== END | disposition home or self-care (01) ==
LOC: MRI 10:56
PROVIDERS: PCP Family Medicine; Visit Provider Orthopaedic Surgery
DX: M54.2 Cervicalgia (principal)
CPT/HCPCS: 72141

== ENCOUNTER 2023-08-14 12:00 | Outpatient (RCR) | payer OTHER, SELFPAY ==
--- NOTE | 2023-07-29 17:43 | HP.PTEVAL ---
Patient's Visit Information Visit Information Visit Information: LILI CONCEPCION is a 48 year old F referred to Physical Therapy by JAE Helton with a diagnosis of ACUTE PAIN IF RIGHT SHOULDER ,FIBROMALGIA. Date of Evaluation: 07/29/23 Physical Therapist: Lele Diaz, PT, Cert MDT, OCS Visit Plan Frequency: 2x /Week Duration: 4 Weeks Plan: PT INTERVTIONS RTC/SCAPULAR STRENGTHENING ,CERVICAL/POSTURAL EX'S ,MANUAL THERAPY CERVICAL TRACTION /STM ADN MODALTIES Subjective Subjective: This 48 y/o female presents to physical therapy with right shoulder pain and fibromyalgia. Patient has had right scapular and and cervical pain for past 7 years but shoulder pain in scapular worse past 3 months. Seen PAC recommended PT . Tried epidural injection ~ [address] Castro in past MRI was -. X-rays -. Patient pain scapular burning and neck pain described as dull ache . Patient has VIDAL occiput tried Botox and nerve blocks occiput. Denies paresthesia/tingling except in arm and scapular. Aggravating factors lifting ,job demands, flexion an rotation. Alleviating stretching ice/heat and injections. Medication: tramadol and Daypro. Patient pain affects sleeping pattern ~ 4hrs. Patient has tried massage . No PT and chiropractor. Patient pain affects QOL and job demands. Patient goals to decrease pain. SOCIAL: VOCATION: Nurse Pain Right Neck: Pain Intensity (Out of 10): 7 Pain Intensity Range: 10 Right Scapula: Pain Intensity (Out of 10): 9 Pain Intensity Range: 10 Objective Objective: POSTURE: mild forward posture ,rounded shoulders head forward ,decrease lordosis NEURO: c/o paresthesia/tingling scapular ,reflexes C5-6-7 2/3 PALAPTION: tender TMJ ,STM,UT/Levator AROM: shoulder flexion 140 degrees pain ,abduction 140 with pain ,ER 90 degrees ,IR L1 MMT: RTC 4-/5 pain ,deltoid 4-/5 pain CERVICAL ROM: flexion min loss ,extension min loss ,rotation /lateral flexion min loss ,retraction min pain ,protraction WFL Special Tests C/S Radiculapathy - Left Upper limb tension test: Negative C/S Radiculapathy - Right Upper limb tension test: Negative C/S Radiculapathy - Left Spurlings: Negative C/S Radiculapathy - Right Spurlings: Negative C/S Radiculapathy - Left Cervical distraction: Negative C/S Radiculapathy - Right Cervical distraction: Negative C/S Radiculapathy - Left Relief test: Negative C/S Radiculapathy - Right Relief test: Negative Sharp Fatuma: Negative Vertebral Artery Test: Negative Alar Ligament Test: Negative Cervical Sitting: Protrusion - Mechanical Response: No effect Cervical Sitting: Protrusion - Symptoms During Testing: Increases Cervical Sitting: Protrusion - Symptoms After Testing: No worse Cervical Sitting: Retraction - Mechanical Response: No effect Cervical Sitting: Retraction - Symptoms During Testing: Increases Cervical Sitting: Retraction - Symptoms After Testing: No worse Cervical Sitting: Retraction-Extension - Mechanical Response: No effect Cerv Sitting: Retraction-Extension - Symptoms During Testing: Increases Cerv Sitting: Retraction-Extension - Symptoms After Testing: No worse Cervical Sitting: Sidebend Right - Mechanical Response: No effect Cervical Sitting: Sidebend Right - Symptoms During Testing: No effect Cervical Sitting: Sidebend Right - Symptoms After Testing: No effect Cervical Sitting: Sidebend Left - Mechanical Response: No effect Cervical Sitting: Sidebend Left - Symptoms During Testing: No effect Cervical Sitting: Sidebend Left - Symptoms After Testing: No effect Cervical Sitting: Rotation Right - Mechanical Response: No effect Cervical Sitting: Rotation Right - Symptoms During Testing: No effect Cervical Sitting: Rotation Right - Symptoms After Testing: No effect Cervical Sitting: Rotation Left - Mechanical Response: No effect Cervical Sitting: Rotation Left - Symptoms During Testing: No effect Cervical Sitting: Rotation Left - Symptoms After Testing: No effect Cervical Sitting: Flexion - Mechanical Response: No effect Cervical Sitting: Flexion - Symptoms During Testing: No effect Cervical Sitting: Flexion - Symptoms After Testing: No effect R Shoulder External Rotation Lag Test - RC Tear: Negative R Shoulder Drop Sign - IS Test: Negative R Shoulder Empty Can - SS: Positive R Shoulder Belly Press - SupScap: Negative R Shoulder Neer - Impingement: Positive R Shoulder Noguera Rubio - Impingement: Positive R Shoulder Biceps Load Test - Labrum: Negative R Shoulder AC Resisted - AC: Positive R Shoulder Shrug Sign - OA/Adhesive Capsulitis: Negative R Shoulder Lateral Scapular Slide Test - Scap Dysfunction: Negative Balance/Special Test Scores Quick DASH Score: 38.6350 Goals Goal 1:: Patient to be I with HEP for neck and shoulder. Goal Time Frame: 4-6 Weeks Goal 2:: Patient to AROM shoulder WNL without pain for ADLS and job demands Goal Time Frame: 4-6 Weeks Goal 3:: Patient to improve strength of RTC and deltoid to 4/5 to improve function with less pain Goal Time Frame: 4-6 Weeks Goal 4:: Patient to improve cervical ROM for function of recovery for driving and job demands Goal Time Frame: 4-6 Weeks Goal 5:: Patient to improve quick dash by 5 points to improve QOL and function Goal Time Frame: 4-6 Weeks Rehabilitation Potential Physical Therapy Diagnosis: This patient has right shoulder pain with possible impingement possible tendinopathy with pain with motion ,weakness RTC ,SAPULAR along with neck pain worse with motion testing and job demands thus benefit from skilled PT Rehabilitation Potential: Good Anticipated Interventions Patient/Client Instruction: Educate patient on: Condition and Plan of Care For the Purpose of:: To decrease pain, To increase ROM, To improve muscle performance and motor function, To increase tolerance to activity/condition/position, To improve ability of physical actions for home/community/work/leisure, To improve health of tissue, To decrease soft tissue restriction, To increase flexibility/ROM and To improve endurance Therapeutic Exercise to Include: Strength training, Postural training, Flexibilty training, Active ROM, Karin Exercises and Scapular Strength/Stabilization Comment: RIGHT SHOULDER For the Purpose of:: To decrease pain, To increase ROM, To improve muscle performance and motor function, To increase tolerance to activity/condition/position, To improve ability of physical actions for home/community/work/leisure, To improve health of tissue, To decrease soft tissue restriction and To increase flexibility/ROM Manual Therapy Techniques to Include: Soft tissue mobilization Comment: CERVICAL /TRACTION For the Purpose of:: To decrease pain, To increase ROM, To improve health of tissue and To decrease soft tissue restriction TENS: Yes IF ES: Yes Cryotherapy (ice pack, ice massage): Yes Thermo therapy (hot pack): Yes Ultrasound (thermal/non thermal): Yes For the Purpose of:: To decrease pain, To increase ROM, To improve nutrient delivery to tissue, To increase oxygenation perfusion, To improve health of tissue and To decrease soft tissue restriction Text: Thank you for the opportunity to evaluate your patient. For Medicare and Medicare HMO plans, please review the plan of care and approve it. It will need to be FAXED BACK to us at [phone] for Medicare purposes. For Medicare only, by signing this I certify the plan of care. Please let me know if there are questions or concerns regarding this plan of care. Physician Signature: Date:
--- NOTE | 2023-09-28 16:49 | HP.PT.NRP ---
Patient Information Patient Information: LILI CONCEPCION was seen in my office for initial evaluation on 07/29/23. The following Plan of Care was established for this patient: POC Established Initial Frequency: 2x /Week Initial Duration: 4 Weeks Anticipated Interventions Patient/Client Instruction: Educate patient on: Condition and Plan of Care For the Purpose of:: To decrease pain, To increase ROM, To improve muscle performance and motor function, To increase tolerance to activity/condition/position, To improve ability of physical actions for home/community/work/leisure, To improve health of tissue, To decrease soft tissue restriction, To increase flexibility/ROM and To improve endurance Therapeutic Exercise to Include: Strength training, Postural training, Flexibilty training, Active ROM, Karin Exercises and Scapular Strength/Stabilization For the Purpose of:: To decrease pain, To increase ROM, To improve muscle performance and motor function, To increase tolerance to activity/condition/position, To improve ability of physical actions for home/community/work/leisure, To improve health of tissue, To decrease soft tissue restriction and To increase flexibility/ROM Manual Therapy Techniques to Include: Soft tissue mobilization Comment: CERVICAL /TRACTION For the Purpose of:: To decrease pain, To increase ROM, To improve health of tissue and To decrease soft tissue restriction TENS: Yes IF ES: Yes Cryotherapy (ice pack, ice massage): Yes Thermo therapy (hot pack): Yes Ultrasound (thermal/non thermal): Yes For the Purpose of:: To decrease pain, To increase ROM, To improve nutrient delivery to tissue, To increase oxygenation perfusion, To improve health of tissue and To decrease soft tissue restriction Last Seen Last Seen: This patient was last seen in our office . Pertinent comments regarding their Physical therapy will appear below: Patient was seen for PT for right shoulder pain and had MRI of neck which was negative At this point I will be discontinuing this patient from physical therapy. I would be happy to see this patient again in the future if found appropriate by the physician. Thank you! Lele Diaz, PT, Cert MDT, OCS Balance/Gait/Functional tests Balance/Special Test Scores Quick DASH Score: 38.6350
== END 2023-08-14 19:00 | disposition home or self-care (01) ==
LOC: PT 12:00
PROVIDERS: PCP Family Medicine; Referring Provider Physician Assistant; Visit Provider Physician Assistant
DX: M79.7 Fibromyalgia (principal)
CPT/HCPCS: 97035; 97140; 97162

== ENCOUNTER → 2024-05-13 | Outpatient (CLI) | payer OTHER, SELFPAY ==
[2024-05-13 18:21] LABS: Absolute Lymphocyte Count 2.71 X10^3/uL (0.83-4.51); Absolute Neutrophil Count 6.4 X10^3/uL (2.0-7.7); Basophil# 0.03 X10^3/uL; Basophil% 0.3 % (0-1); Eosinophil# 0.08 X10^3/uL; Eosinophils% 0.8 % (0-5); Hematocrit 39.7 % (37-47); Hemoglobin 12.7 g/dL (12.0-15.0); Lymphocyte # 2.71 X10^3/ul (0.83-4.51); Lymphocyte % 27.7 % (19-41); Mean Corpuscular Hgb 29.5 pg (27.0-32.0); Mean Corpuscular Volume 92.3 fL (81-99); Mean Platelet Vol. 10.1 fl (6.2-12.0); Monocyte# 0.53 X10^3/uL; Monocyte% 5.4 % (0-10); NRBC Flagged by Analyzer 0 % (0-5); Neutrophil # 6.42 X10^3/uL (2.7-7.7); Neutrophil % 65.5 % (47-70); Platelet Count 356 K/mm3 (150-450); RBC Distribution Width CV 12.7 % (11.6-14.6); RBC Distribution Width SD 42.8 fl (35.1-43.9); White Blood Count 9.8 K/mm3 (4.4-11.0)
[2024-05-13 18:25] LABS: ALB/GLOB Ratio 1.1 RATIO (0.9-2.4); AST(SGOT) 12 U/L (15-37); Alanine Aminotransfer ALT/SGPT 20 U/L (13-56); Alkaline Phosphatase 60 U/L (45-117); Anion Gap 5 (5-15); BUN 16 mg/dL (7-18); BUN/Creat Ratio 25.2 RATIO (10-20); Calcium,Total 9.5 mg/dL (8.5-10.1); Chloride 104 mmol/L (98-107); Creatinine, Serum 0.64 mg/dL (0.55-1.02); EST Glomerular Filtration Rate 106 mL/min (>60); Erythrocyte Sedimentation Rate 4 mm/hr (0-30); Est Glom Filt Rate - Afr Amer 128 mL/min (>60); Globulin 3.7 g/dL (2.2-4.2); Glucose 130 mg/dL (74-106); Potassium 3.8 mmol/L (3.5-5.1); Protein, Total 7.7 g/dL (6.4-8.2); Sodium Level 137 mmol/L (136-145)
== END | disposition home or self-care (01) ==
LOC: MFPLAB 15:29
PROVIDERS: PCP Family Medicine; Referring Provider Family Medicine; Visit Provider Family Medicine
DX: R00.0 Tachycardia, unspecified (principal)
CPT/HCPCS: 36415; 80053; 83735; 84443; 85025; 85652

== ENCOUNTER 2024-09-09 09:36 | Observation (INO) | payer BC, OTHER, SELFPAY ==
[2024-09-09] VITALS (8 sets, daily range): BP systolic 116–136; BP diastolic 82–95; PULSE 81–115; RESP 15–19; TEMP 36.4–37.1; O2SAT 98–100; BMI 22.5; BMI 21.4
--- NOTE | 2024-09-09 09:39 | EKG12_ITS ---
Test Reason : CARDIAC CONCERN Blood Pressure : */* mmHG Vent. Rate : 115 BPM Atrial Rate : 115 BPM P-R Int : 134 ms QRS Dur : 70 ms QT Int : 326 ms P-R-T Axes : 72 65 58 degrees QTcB Int : 450 ms Sinus tachycardia Otherwise normal ECG When compared with ECG of 09-Sep-2024 09:39, MANUAL COMPARISON REQUIRED DATA IS UNCONFIRMED Confirmed by DARRYN HOUSTON, JENSEN ([id number]), staff editor CARLOS VIVAR ([id number]) on 09/13/2024 8:33:21 AM Referred By: INA Confirmed By: JENSEN CATES MD
--- NOTE | 2024-09-09 10:08 | EKG12_ITS ---
Test Reason : CARDIAC CONCERN Blood Pressure : */* mmHG Vent. Rate : 115 BPM Atrial Rate : 115 BPM P-R Int : 134 ms QRS Dur : 70 ms QT Int : 326 ms P-R-T Axes : 72 65 58 degrees QTcB Int : 450 ms Sinus tachycardia Otherwise normal ECG Confirmed by DARRYN HOUSTON, JENSEN ([id number]), publication editor VITALIY ANAYA ([id number]) on 09/12/2024 9:15:54 AM Referred By: INA Confirmed By: JENSEN CATES MD
[2024-09-09] MEDS: 0.9% Normal Saline (1000mL) 1,000 ML 999 ML IV (10:17)
--- NOTE | 2024-09-09 10:25 | RAD_ITS ---
PROCEDURE: CHEST 1 VIEW (PORTABLE) 09/09/2024 REASON FOR EXAM: CHEST PAIN TECHNIQUE: Frontal view of the chest. COMPARISON: None FINDINGS: The lungs are clear. No pleural effusion or pneumothorax. The cardiomediastinal silhouette is unremarkable. No acute osseous or soft tissue abnormality. Surgical clips are noted in the right upper quadrant of the abdomen. RAD/Chest 1 View (Portable) IMPRESSION: 1. No acute cardiopulmonary process. Reading Location: [facility]
[2024-09-09 10:30] LABS: Absolute Lymphocyte Count 2.21 X10^3/uL (0.83-4.51); Absolute Neutrophil Count 3.6 X10^3/uL (2.0-7.7); Basophil# 0.03 X10^3/uL; Basophil% 0.5 % (0-1); Eosinophil# 0.29 X10^3/uL; Eosinophils% 4.4 % (0-5); Hematocrit 37.3 % (37-47); Hemoglobin 12.4 g/dL (12.0-15.0); Lymphocyte # 2.21 X10^3/ul (0.83-4.51); Lymphocyte % 33.8 % (19-41); Mean Corp Hgb Conc 33.2 g/dL (32-36); Mean Corpuscular Hgb 29.3 pg (27.0-32.0); Mean Corpuscular Volume 88.2 fL (81-99); Mean Platelet Vol. 9.6 fl (6.2-12.0); Monocyte% 6.1 % (0-10); NRBC Flagged by Analyzer 0 % (0-5); Platelet Count 294 K/mm3 (150-450); RBC Distribution Width CV 12.3 % (11.6-14.6); RBC Distribution Width SD 39.2 fl (35.1-43.9); Red Blood Count 4.23 M/mm3 (4.2-5.4); White Blood Count 6.5 K/mm3 (4.4-11.0)
--- NOTE | 2024-09-09 10:43 | EDS_ITS ---
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 Patient works at the PCP office locally, Dr. José Miguel Young had given a call ahead to give report. He had reported that patient was working today, patient had a syncopal episode and then had seizure-like activity for approximately a minute and then was unresponsive for 3 to 4 minutes. He stated that patient had just failed a stress test last week and was due to have a cardiac cath next week. He stated patient had no incontinence, did not bite her tongue. He also thought the patient was in a flutter in the 140s to 50s. He stated EMS gave patient 1 nitro and 4 baby aspirin. Patient is at bedside. They have spoken to their cardiology office, spoke to a nurse at Dr. Palmer. Their office wanted a copy of the EKG. Patient does have a history of passing in the past, she also has history of seizure-like activity after passing out episodes. Patient has wore a Holter monitor April 2024 that did show her heart rate increasing to the 160s to 180s intermittently and coming back down. Patient was on blood pressure medication recently and is stopped that secondary causing headache. Patient cu rrently does have a headache secondary to nitro most likely per patient thought process. Patient currently has no chest pain, tightness, she does have a sharp pain to the mid sternum with no radiation into her neck, jaw, not related to her back. Patient does not have her gallbladder or appendix. No significant stress recently. Patient does have family history, her brother had a CVA, multiple o ther siblings have hypertension. Patient also has had a sinus congestion/symptoms since Thursday. Patient started on a Z-Rojas Thursday evening. Patient has history of hypertension, anxiety, headaches/migraines. Patient had partial hysterectomy. Patient takes no control or hormone therapy. Patient has no recent traveling, non-smoker. No cocaine use. Patient heart score is 2, 1 for age, 1 for family history [facility] Medical History (Updated 09/09/24 @ 13:47 by Blossom Nuñez) GERD (gastroesophageal reflux disease) Former smoker Irregular heart beat Seizures Migraines Home Medications ?Medication ?Instructions ?Recorded ?Last Taken ?Type duloxetine 60 mg capsule,delayed 1 tab PO DAILY 09/09/24 History release oxaprozin 600 mg tablet 1 - 2 tab PO DAILY PRN Pain 09/03/15 Unknown History rizatriptan 10 mg tablet 10 mg PO DAILY PRN Migraine 09/03/15 Unknown History Symptoms tramadol 50 mg tablet 50 mg PO Q6H PRN FIBROMYALGI A 09/03/15 Unknown History Lactobacillus rhamnosus GG 10 1 ea PO DAILY 09/29/18 0 09/09/24 History billion cell capsule (Culturelle) aspirin 81 mg tablet,delayed 81 mg PO DAILY 09/09/24 0 09/09/24 History release atogepant 60 mg tablet (Qulipta) 60 mg PO DAILY MIGRAI NE PREVENTION 09/09/24 09/09/24 History azithromycin 250 mg tablet 250 mg PO Q12H 09/09/24 History magnesium oxide 500 mg PO DAILY 09/09/24 History nitroglycerin 0.4 mg sublingual 0.4 mg sublingual Q5M PRN chest 09/09/24 Unknown History tablet pain Allergy/AdvReac Type Severity Reaction Status Date / Time lorazepam (From Ativan) AdvReac HYPER, Verified 06/25/22 09:11 AGITATED Family History (Updated 05/19/22 @ 15:20 by Leigh Dyson) Mother Hypertension Cancer Father Hypertension Diabetes Brother Hypertension Sister Hypertension Grandmother Cancer Uncle Cancer Aunt Cancer Grandmother Cancer Surgical History (Updated 05/19/22 @ 15:15 by Leigh Bayip) History of partial hysterectomy History of appendectomy History of cholecystectomy Social History (Updated 05/19/22 @ 15:16 by Leigh Dyson) Smoking Status: Never smoker alcohol intake: never what type of physical activity do you participate in: walking, running and other details: stretching ROS ROS ED ROS Narrative REVIEW OF SYSTEMS: Unless otherwise stated in this report the patient's positive and negative responses for review of systems for constitutional, eyes, ENT, cardiovascular, respiratory, gastrointestinal, neurological, , musculoskeletal, and integument systems and related systems to the presenting problem are either stated in the history of present illness or were not pertinent or were negative for the symptoms and/or complaints related to the presenting medical problem. EXAM Physical Exam Const Vital Signs: 09/09/24 09:38 09/09/24 09:45 09/09/24 10:08 Temperature 98.1 F Temperature Source Oral Pulse Rate 115 H Respiratory Rate 15 Respiratory Effort Normal Blood Pressure 124/82 H Blood Pressure Mean 96 Pulse Ox 100 Oxygen Delivery Method Room Air Room Air 09/09/24 10:36 09/09/24 11:00 09/09/24 12:00 Temperature Temperature Source Pulse Rate 113 H 81 92 Respiratory Rate 18 19 H 19 H Respiratory Effort Blood Pressure 128/89 H 116/90 H 131/85 H Blood Pressure Mean 102 98 100 Pulse Ox 98 98 98 Oxygen Delivery Method Room Air Room Air Room Air 09/09/24 12:21 Temperature 98.2 F Temperature Source Pulse Rate 87 Respiratory Rate 19 H Respiratory Effort Blood Pressure 125/82 H Blood Pressure Mean 96 Pulse Ox 98 Oxygen Delivery Method MDM MDM MDM Narrative Medical decision making narrative: Patient seen and examined: Syncope, seizure-like activity unresponsive episode. Differential diagnosis includes but is not limited to: NM, acute coronary syndrome, closed head injury, syncope, electrolyte abnormality, arrhythmia, gastritis, pneumonia, pneumothorax, PE Relevant laboratory interpretation: Radiological studies: chest x-ray was reviewed independently by myself. Chest x-ray shows no acute cardiopulmonary disease, no filtrate, no effusion. Reevaluation: Social barriers to healthcare: There are no food insecurities, there is no issue with transportation, there are no insurance barriers Disposition: Patient will be admitted for further evaluation for syncope, rule out acute coronary syndrome. Patient remained on monitor tech. Patient initial study showed no acute findings. Multiple updates were given to patient and . Diagnosis: Syncope, chest pain, rule out acute coronary syndrome 1215 patient will be admitted to Dr. Rodriguez. He would like me to consult Dr. Mack, and call him now so he is aware of consultation to see if patient will need cardiac cath. 1220 I did speak to the non clinical advisor on-call, Dr. Mack. He is requesting the results from the stress test and echocardiogram from [facility]. This has been requested by Cristin Waller. He is aware consultation, will see this patient. He is aware of the feels stress test last week, the recommendation for cardiac cath next week but insurance has denied and recommended the CT calcium score scan of the heart. He had no other recommendations at this time. Dr Mack came to see and evaluate the patient in the ER as well. Dr Rodriguez is aware that I spoke to the non clinical advisor and he came to the ER to see to evaluate the patient as well. 2 troponins negative Lab Data Attestation: I reviewed the patient's lab results. Labs: Laboratory Results - last 24 hr 09/09/24 09/09/24 09:57 12:11 WBC 6.5 RBC 4.23 Hgb 12.4 Hct 37.3 MCV 88.2 MCH 29.3 MCHC 33.2 RDW Std Deviation 39.2 RDW Coeff of Maricarmen 12.3 Plt Count 294 MPV 9.6 Immature Gran % (Auto) 0.200 Neut % (Auto) 55.0 Lymph % (Auto) 33.8 [place] % (Auto) 6.1 Eos % (Auto) 4.4 Baso % (Auto) 0.5 Absolute Neuts (auto) 3.6 Absolute Lymphs (auto) 2.21 Nucleated RBC % 0 PT 12.6 INR 0.9 APTT 28.2 D-Dimer Quant (PE/DVT) 0.27 Sodium 137 Potassium 3.7 Chloride 102 Carbon Dioxide 19.7 L Anion Gap 15 BUN 11 Creatinine 0.57 L Estim Creat Clear Calc 107.43 Est GFR (MDRD) Non-Af 111 BUN/Creatinine Ratio 20.1 H Glucose 126 H Calcium 9.5 Magnesium 1.6 Troponin T High Sens < 6 Troponin T Hi Sens 2 Hr < 6 NT pro BNP II 37 TSH 1.930 Serum , Qual NEGATIVE Radiography Chest X-Ray - ED: Read by ED Physician (Chest x-ray shows no acute cardiopulmonary disease, no filtrate, no effusion) Diagnostic Testing: Clinical Impression(s) from Imaging Studies Chest X-Ray 09/09/24 10:25 IMPRESSION: 1. No acute cardiopulmonary process. Reading Location: [facility] EKG Initial EKG: Attestation: I personally reviewed and interpreted this EKG as follows: (EKG interpretation. Sinus tachycardia at 115. Normal axis deviation. No acute ST elevation, no acute ectopy. QTc of 450) Discharge Plan Disposition Disposition: Acute Care Hospital [facility] Discharge Date/Time: 09/09/24 13:34
[2024-09-09 10:44] LABS: International Normalized Ratio 0.9; Partial Thromboplast Time 28.2 Seconds (24.1-36.2); Prothrombin Time (Protime)PT. 12.6 SECONDS (11.7-14.9)
[2024-09-09] MEDS: Acetaminophen 325 MG Tablet 650 MG PO (10:52)
[2024-09-09] MEDS: Ketorolac 15 MG/ML Vial IV (10:53)
[2024-09-09 11:07] LABS: D-Dimer Quantitative (DVT/PE) 0.27 FEU/ug/m (0.27-0.49)
[2024-09-09 11:12] LABS: Anion Gap 15 (5-15); BUN 11 mg/dL (4-19); BUN/Creat Ratio 20.1 RATIO (10-20); Calcium,Total 9.5 mg/dL (7.6-11.0); Carbon Dioxide 19.7 mmol/L (21.0-32.0); Chloride 102 mmol/L (98-108); Creatinine, Serum 0.57 mg/dL (0.70-1.20); EST Glomerular Filtration Rate 111 (>60); Estimated Creatinine Clearance 107.43 ml/min (50-250); Glucose 126 mg/dL (70-99); Magnesium 1.6 mg/dL (1.5-2.2); Potassium 3.7 mmol/L (3.3-5.1); Pro- Brain NATRIURETIC PEPTIDE 37 pg/mL (<=450); Sodium Level 137 mmol/L (133-145); Troponin T High Sensitivity < 6 ng/L (<=14)
[2024-09-09 11:16] LABS: Internal QC Validated? YES +Cl - CLEAR BKGD; Pregnancy, Serum, hCG Quali. NEGATIVE Negative
[2024-09-09] MEDS: 0.9% Normal Saline (1000mL) 1,000 ML 15 ML IV (11:42)
[2024-09-09 12:57] LABS: Troponin T High Sens 2 HR < 6 ng/L (<=14)
[2024-09-09] MEDS: traMADol 50 MG Tablet PO (14:49)
[2024-09-09] MEDS: 0.9% Normal Saline (1000mL) 1,000 ML 75 ML IV (14:50)
--- NOTE | 2024-09-09 15:34 | CHAPLAIN ---
Type of Pastoral Visit ___ Initial Visit ___ Follow-up Visit ___ On-call Visit ___ General Patient Visit ___ Spiritual Assessment ___ Family Conference ___ Bereavement ___ Rapid Response ___ Code Blue ___ Other (describe below) Pastoral Care Referral From ___ Patient ___ Family ___ Nurse ___ Physician ___ Coin Machine Servicer Repairer ___ Frame Welder Cargo Utility Trailers ___ Other (describe below) Sacrament/Intervention ___ Active listening ___ Anointing ___ Orthodoxy ___ Bereavement ___ Communion ___ Letty exploration ___ ___ Life review ___ Prayer ___ Reconciliation ___ Sacrament of Sick ___ Supportive presence ___ Wedding ___ Other (describe below) Pastoral Comments patient was just admitted this afternoon; pt was sound asleep when entering her room;
[2024-09-09 15:37] LABS: Troponin T High Sens 4 HR < 6 ng/L (<=14)
--- NOTE | 2024-09-09 16:53 | HP.PCM.HOS_ITS ---
HPI - General General Date of Admission: 09/09/24 HPI Narrative LILI CONCEPCION, is a 49 F who presents with concerns of possible seizure versus chest pain in the setting of a flutter. 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 She had some transient nausea and some substernal chest pain and then she had a syncopal episode. Witnesses said she had seizure-like activity and then she recovered in approximately 4 minutes. She did not have any postictal phase and did not have any loss of bowel or bladder function during this episode. She states that she has had an extensive previous history with workups for migraines in the past with MRIs that she needs to be sedated for that Ativan does not work, she said a previous EEG, she was on injections for migraines that did not prevent any migraines and is now on Qulipta with her neurologist at [facility]. She states that the headache that she had before everything progressed is similar to the headache she usually gets and she states that she would normally have taken her rizatriptan however it does make her little bit sleepy so she hesitates to take it at work, she does think that she could continue the day even after taking the rizatriptan. She has been needing to take rizatriptan more frequently recently and she states that her even commented on that. In the ER EKG was unremarkable, she was in sinus tachycardia and 2 troponins were negative less than 6. 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 She also states her previous MRI does not show any major intracranial malformations and her previous EEGs were normal. [facility] Medical History (Updated 09/09/24 @ 17:[address] Toño Rodriguez MD) GERD (gastroesophageal reflux disease) Former smoker Irregular heart beat Seizures Migraines Home Medications ?Medication ?Instructions ?Recorded ?Last Taken ?Type duloxetine 60 mg capsule,delayed 1 tab PO DAILY 09/09/24 History release oxaprozin 600 mg tablet 1 - 2 tab PO DAILY PRN Pain 09/03/15 Unknown History rizatriptan 10 mg tablet 10 mg PO DAILY PRN Migraine 09/03/15 Unknown History Symptoms tramadol 50 mg tablet 50 mg PO Q6H PRN FIBROMYALGI A 09/03/15 Unknown History Lactobacillus rhamnosus GG 10 1 ea PO DAILY 09/29/18 0 09/09/24 History billion cell capsule (Culturelle) aspirin 81 mg tablet,delayed 81 mg PO DAILY 09/09/24 0 09/09/24 History release atogepant 60 mg tablet (Qulipta) 60 mg PO DAILY MIGRAI NE PREVENTION 09/09/24 09/09/24 History azithromycin 250 mg tablet 250 mg PO Q12H 09/09/24 History magnesium oxide 500 mg PO DAILY 09/09/24 History nitroglycerin 0.4 mg sublingual 0.4 mg sublingual Q5M PRN chest 09/09/24 Unknown History tablet pain Allergy/AdvReac Type Severity Reaction Status Date / Time lorazepam (From Ativan) AdvReac HYPER, Verified 06/25/22 09:11 AGITATED Family History (Updated 05/19/22 @ 15:20 by Leigh Dyson) Mother Hypertension Cancer Father Hypertension Diabetes Brother Hypertension Sister Hypertension Grandmother Cancer Uncle Cancer Aunt Cancer Grandmother Cancer Surgical History (Updated 05/19/22 @ 15:15 by Leigh Dyson) History of partial hysterectomy History of appendectomy History of cholecystectomy Social History (Updated 05/19/22 @ 15:16 by Leigh Dyson) Smoking Status: Never smoker alcohol intake: never what type of physical activity do you participate in: walking, running and other details: stretching ROS Constitutional Constitutional: Denies chills, fatigue, fever(s) or malaise Eyes Eyes: Denies blurry vision ENT HEENT: Denies headache(s) or nasal discharge Cardiovascular Cardiovascular: Reports chest pain and syncope; Denies dyspnea on exertion Respiratory/Chest Respiratory/Chest: Denies cough, shortness of breath at rest or shortness of breath with exertion Gastrointestinal Gastrointestinal: Denies constipation, diarrhea, nausea or vomiting Genitourinary Genitourinary: Denies dysuria Neurologic Neurologic: Reports seizure-like activity; Denies focal weakness, numbness or tremor(s) Psychiatric Psychiatric: Denies anxiety or depression Vital Signs Vital Signs Vital Signs: 09/09/24 09:38 09/09/24 09:45 09/09/24 10:08 Temperature 98.1 F Temperature Source Oral Pulse Rate 115 H Respiratory Rate 15 Respiratory Effort Normal Blood Pressure 124/82 H Blood Pressure Mean 96 Blood Pressure Source Blood Pressure Position Blood Pressure Location Pulse Ox 100 Oxygen Delivery Method Room Air Room Air 09/09/24 10:36 09/09/24 11:00 09/09/24 12:00 Temperature Temperature Source Pulse Rate 113 H 81 92 Respiratory Rate 18 19 H 19 H Respiratory Effort Blood Pressure 128/89 H 116/90 H 131/85 H Blood Pressure Mean 102 98 100 Blood Pressure Source Blood Pressure Position Blood Pressure Location Pulse Ox 98 98 98 Oxygen Delivery Method Room Air Room Air Room Air 09/09/24 12:21 09/09/24 13:00 09/09/24 13:55 Temperature 98.2 F 98.7 F Temperature Source Oral Pulse Rate 87 91 93 Respiratory Rate 19 H 19 H 18 Respiratory Effort Blood Pressure 125/82 H 133/82 H 130/95 H Blood Pressure Mean 96 99 106 Blood Pressure Source Monitor Blood Pressure Position Semi-Fowlers Blood Pressure Location Right Arm Pulse Ox 98 98 100 Oxygen Delivery Method Room Air Room Air Weight Weight: 129 lb Body Mass Index (BMI) 21.4 Physical Exam Narrative General: Alert, Oriented x3, Cooperative, No apparent distress HEENT: Atraumatic, PERRLA, EOMI, Normocephalic Oral: Moist Mucosa Neck: Supple, No JVD Lungs: Diminished at the bases, Normal air movement, No rhonchi, No wheeze, No rales Cardiovascular: Regular rate, Regular Rhythm, Normal S1, Normal S2, No murmurs Abdomen: Soft, Non Tender, Non-Distended, No Hepato-splenomegaly Extremities: No edema, Capillary Refill Less than 3 Seconds Skin: No rashes, No breakdown Musculoskeletal: No Tenderness to Palpation of Joints or Extremities Neurological: No focal neurological deficits, Motor Exam 5/5 strength throughout, Sensory exam intact to light touch and pain, currently has a headache Psych/Mental Status: Normal Affect, Appropriate Results Lab / Micro Data 09/09/24 09:57 09/09/24 09:57 Labs: Laboratory Results - last 24 hr 09/09/24 09:57: WBC 6.5, RBC 4.23, Hgb 12.4, Hct 37.3, MCV 88.2, MCH 29.3, MCHC 33.2, RDW Std Deviation 39.2, RDW Coeff of Maricarmen 12.3, Plt Count 294, MPV 9.6, Immature Gran % (Auto) 0.200, Neut % (Auto) 55.0, Lymph % (Auto) 33.8, [place] % (Auto) 6.1, Eos % (Auto) 4.4, Baso % (Auto) 0.5, Absolute Neuts (auto) 3.6, Absolute Lymphs (auto) 2.21, Nucleated RBC % 0, PT 12.6, INR 0.9, APTT 28.2, D- Dimer Quant (PE/DVT) 0.27, Sodium 137, Potassium 3.7, Chloride 102, Carbon Dioxide 19.7 L, Anion Gap 15, BUN 11, Creatinine 0.57 L, Estim Creat Clear Calc 107.43, Est GFR (MDRD) Non-Af 111, BUN/Creatinine Ratio 20.1 H, Glucose 126 H, Calcium 9.5, Magnesium 1.6, Troponin T High Sens < 6, NT pro BNP II 37, TSH 1.930, Serum , Qual NEGATIVE 09/09/24 12:11: Troponin T Hi Sens 2 Hr < 6 09/09/24 14:28: Troponin T Hi Sens 4Hr < 6 Imaging Radiology Impression Chest X-Ray 09/09/24 10:25 IMPRESSION: 1. No acute cardiopulmonary process. Reading Location: [facility] Assessment & Plan Assessment/Plan (1) Migraines: PLAN: Plan 1. Concern for complex migraine ? Will obtain an EEG ? She states that she needs to be sedated for an MRI we cannot do here therefore I will have her follow-up with her neurologist if indicated ? Will continue with her Qulipta while she is here in the hospital and provide treatment for her migraine ? Based on the history does not appear that she had a seizure so we will monitor for observation overnight to see if she has any further episodes of the A- flutter of potentially seen at the scene ? 2 troponins were negative therefore she does not have ACS and EKG was unremarkable. Will await for further results from her echo and stress test. ? Cardiology was consulted from the ER ? If EEG is abnormal we will proceed with neurology consultation currently she is neurologically intact with no postictal state, she said that she has never had a seizure before ? TSH was unremarkable and proBNP is normal renal function is also stable 2. Fibromyalgia/anxiety/depression ? Continue with her home Cymbalta ? Will evaluate for any pain and continue with her tramadol as needed 3. Sinus infection ? Will complete her azithromycin, last dose is tomorrow ? No fevers or leukocytosis DVT: Ambulation 75 minutes was spent on direct patient care, including documentation as well as chart review and collaboration with colleagues Charges/Coding Visit Charges Inpatient E&M: 77618 Init Hosp L3
[2024-09-10 03:00] VITALS: BP 117/82; PULSE 97; RESP 16; TEMP 36.5; O2SAT 99
[2024-09-10] MEDS: 0.9% Normal Saline (1000mL) 1,000 ML 75 ML IV (03:51)
[2024-09-10 07:36] LABS: Absolute Lymphocyte Count 3.01 X10^3/uL (0.83-4.51); Absolute Neutrophil Count 3.8 X10^3/uL (2.0-7.7); Basophil# 0.03 X10^3/uL; Basophil% 0.4 % (0-1); Eosinophil# 0.33 X10^3/uL; Eosinophils% 4.3 % (0-5); Hematocrit 32.3 % (37-47); Hemoglobin 10.4 g/dL (12.0-15.0); Lymphocyte # 3.01 X10^3/ul (0.83-4.51); Lymphocyte % 39.7 % (19-41); Mean Corp Hgb Conc 32.2 g/dL (32-36); Mean Corpuscular Hgb 29.2 pg (27.0-32.0); Mean Corpuscular Volume 90.7 fL (81-99); Monocyte# 0.45 X10^3/uL; Monocyte% 5.9 % (0-10); NRBC Flagged by Analyzer 0 % (0-5); Neutrophil # 3.75 X10^3/uL (2.7-7.7); Neutrophil % 49.4 % (47-70); Platelet Count 259 K/mm3 (150-450); RBC Distribution Width CV 12.2 % (11.6-14.6); RBC Distribution Width SD 41.1 fl (35.1-43.9); Red Blood Count 3.56 M/mm3 (4.2-5.4); White Blood Count 7.6 K/mm3 (4.4-11.0)
[2024-09-10 08:23] LABS: Anion Gap 9 (5-15); BUN 8 mg/dL (4-19); BUN/Creat Ratio 14.7 RATIO (10-20); Calcium,Total 8.8 mg/dL (7.6-11.0); Carbon Dioxide 24.3 mmol/L (21.0-32.0); Chloride 107 mmol/L (98-108); Creatinine, Serum 0.53 mg/dL (0.70-1.20); EST Glomerular Filtration Rate 113 (>60); Estimated Creatinine Clearance 115.54 ml/min (50-250); Glucose 96 mg/dL (70-99); Magnesium 1.7 mg/dL (1.5-2.2); Potassium 3.8 mmol/L (3.3-5.1); Sodium Level 140 mmol/L (133-145)
[2024-09-10] MEDS: DULoxetine Hcl 60 MG Capsule PO (08:59)
[2024-09-10] MEDS: Azithromycin 250 MG Tablet PO (08:59)
[2024-09-10] MEDS: Aspirin E.C. 81 MG Tablet PO (08:59)
[2024-09-10 09:34] LABS: Phosphorus 3.1 mg/dL (2.7-4.5)
--- NOTE | 2024-09-10 10:26 | PCM.PN.HOSP ---
Subjective Subjective Feels better, says that her headache is resolved no further episodes Objective Data Objective Data Vital Signs: Vital Signs Temp Pulse Resp BP Pulse Ox O2 Del Method 97.7 F L 97 16 117/82 H 99 Room Air 09/10/24 03:00 09/10/24 03:00 09/10/24 03:00 09/10/24 03:00 09/10/24 03:00 09/10/24 03:00 Oxygen Delivery Method Room Air Weight: 129 lb Body Mass Index (BMI) 21.4 Intake & Output: Intake and Output for Last 24 Hours 09/09/24 09/10/24 09/11/24 03:59 03:59 03:59 Intake Total 2547 / 2547 Balance 2547 / 2547 Lab / Micro Data 09/10/24 06:20 09/10/24 06:20 Labs: Laboratory Results - last 24 hr 09/09/24 09:57: WBC 6.5, RBC 4.23, Hgb 12.4, Hct 37.3, MCV 88.2, MCH 29.3, MCHC 33.2, RDW Std Deviation 39.2, RDW Coeff of Maricarmen 12.3, Plt Count 294, MPV 9.6, Immature Gran % (Auto) 0.200, Neut % (Auto) 55.0, Lymph % (Auto) 33.8, [place] % (Auto) 6.1, Eos % (Auto) 4.4, Baso % (Auto) 0.5, Absolute Neuts (auto) 3.6, Absolute Lymphs (auto) 2.21, Nucleated RBC % 0, PT 12.6, INR 0.9, APTT 28.2, D-Dimer Quant (PE/DVT) 0.27, Sodium 137, Potassium 3.7, Chloride 102, Carbon Dioxide 19.7 L, Anion Gap 15, BUN 11, Creatinine 0.57 L, Estim Creat Clear Calc 107.43, Est GFR (MDRD) Non-Af 111, BUN/Creatinine Ratio 20.1 H, Glucose 126 H, Calcium 9.5, Magnesium 1.6, Troponin T High Sens < 6, NT pro BNP II 37, TSH 1.930, Serum , Qual NEGATIVE 09/09/24 12:11: Troponin T Hi Sens 2 Hr < 6 09/09/24 14:28: Troponin T Hi Sens 4Hr < 6 09/10/24 06:20: WBC 7.6, RBC 3.56 L, Hgb 10.4 L, Hct 32.3 L, MCV 90.7, MCH 29.2, MCHC 32.2, RDW Std Deviation 41.1, RDW Coeff of Maricarmen 12.2, Plt Count 259, MPV 10.0, Immature Gran % (Auto) 0.300, Neut % (Auto) 49.4, Lymph % (Auto) 39.7, [place] % (Auto) 5.9, Eos % (Auto) 4.3, Baso % (Auto) 0.4, Absolute Neuts (auto) 3.8, Absolute Lymphs (auto) 3.01, Nucleated RBC % 0, Sodium 140, Potassium 3.8, Chloride 107, Carbon Dioxide 24.3, Anion Gap 9, BUN 8, Creatinine 0.53 L, Estim Creat Clear Calc 115.54, Est GFR (MDRD) Non-Af 113, BUN/Creatinine Ratio 14.7, Glucose 96, Calcium 8.8, Phosphorus 3.1, Magnesium 1.7 Radiography Diagnostic Testing: Radiology Impression Chest X-Ray 09/09/24 10:25 IMPRESSION: 1. No acute cardiopulmonary process. Reading Location: [facility] Physical Exam Narrative General: Alert, Oriented x3, Cooperative, No apparent distress HEENT: Atraumatic, PERRLA, EOMI, Normocephalic Oral: Moist Mucosa Neck: Supple, No JVD Lungs: Diminished at the bases, Normal air movement, No rhonchi, No wheeze, No rales Cardiovascular: Regular rate, Regular Rhythm, Normal S1, Normal S2, No murmurs Abdomen: Soft, Non Tender, Non-Distended, No Hepato-splenomegaly Extremities: No edema, Capillary Refill Less than 3 Seconds Skin: No rashes, No breakdown Musculoskeletal: No Tenderness to Palpation of Joints or Extremities Neurological: No focal neurological deficits, Motor Exam 5/5 strength throughout, Sensory exam intact to light touch and pain Psych/Mental Status: Normal Affect, Appropriate Assessment & Plan Assessment/Plan (1) Migraines: PLAN: Plan 1. Concern for complex migraine ? Will obtain an EEG ? She states that she needs to be sedated for an MRI we cannot do here therefore I will have her follow-up with her neurologist if indicated ? Will continue with her Qulipta while she is here in the hospital and provide treatment for her migraine ? Based on the history does not appear that she had a seizure so we will monitor for observation overnight to see if she has any further episodes of the A-flutter of potentially seen at the scene ? 3 troponins were negative therefore she does not have ACS and EKG was unremarkable. Will await for further results from her echo and stress test. ? Cardiology was consulted from the ER ? Will consult neurology today ? TSH was unremarkable and proBNP is normal renal function is also stable 2. Fibromyalgia/anxiety/depression ? Continue with her home Cymbalta ? Will evaluate for any pain and continue with her tramadol as needed 3. Sinus infection ? Will complete her azithromycin, last dose is tomorrow ? No fevers or leukocytosis DVT: Ambulation Charges/Coding Visit Charges Inpatient E&M: 49249 Subs Hosp L2
--- NOTE | 2024-09-10 10:30 | CT_ITS ---
PROCEDURE: BRAIN/HEAD W/WO CONTRAST 09/10/2024 REASON FOR EXAM: 49-year-old female, questionable complex headache, history of seizures/syncopal episodes. TECHNIQUE: Head CT before and following intravenous contrast. Coronal and Sagittal reconstruction series were provided. CONTRAST: Isovue 370 VOLUME: 50mL One or more dose reduction techniques were used (e.g., Automated exposure control, adjustment of the mA and/or kV according to patient size, use of iterative reconstruction technique). RADIATION DOSE SUMMARY: CTDlvol: 100 mGy DLP: 1500 mGycm COMPARISON: None. FINDINGS: Acute findings: No acute intracranial hemorrhage or herniation. Brain: The glaser-white matter interfaces are maintained. The cerebral and cerebellar volume is normal for patient age. Postcontrast images: Visualization of intracranial mass is slightly limited by timing of contrast administration, which preliminarily opacifies the arterial vessels. No arterially enhancing intracranial mass. CSF Spaces: No ventriculomegaly. The basal cisterns are patent. Sinuses/Mastoids: Moderate mucosal thickening of the bilateral maxillary sinuses and opacification of several bilateral ethmoid air cells. The mastoid air cells are well-aerated. Bones: No acute calvarial fracture or scalp hematoma. CT/Brain/Head W/WO Contrast IMPRESSION: 1. No acute intracranial findings. 2. Moderate mucosal thickening of the paranasal sinuses. Reading Location: [id number]
--- NOTE | 2024-09-10 11:15 | NEURO.CONS ---
Assessment and Plan: Neuro Assessment/Plan LILI CONCEPCION, is a 49 yo woman with history of complex migraines, presenting with syncopal episode and seizure like activity Presentation of prodromal symptoms followed by syncope and seizure like activity is consistent with convulsive syncope. She has had 4-5 similar episodes over the past 15. Per patient, underwent prior EEGs and MRI which were normal. Recommend syncope workup/cardiac workup. For migraines, continue home regimen. Please pleas referral to follow up in headache clinic at [facility] I personally attended this patient and spent a total time of 60 minutes evaluating this patient including clinical assessment, review of chart, medical history imaging, and determining appropriate treatment and workup. 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 She has been having her usual headache migraine for the past 4 days. Yesterday while at work, she felt hot, cold sweat, palpitations, light headed, nauseated, then she you passed out. Colleagues reported she had jerking movements. She returned to baseline upon coming around. No bowel/bladder incontinence. She has a history of complex migraines associated with facial drooping, confusion, sometimes with L side weakness. She has been worked up in the past with MRI and EEG which were normal per patient's report. For migraine, she is on Qulipta and Rizatriptan. With poor control, and interested in following up with Headache clinic at [facility]. Over the past 15 y ears, you have 3-5 episodes of passing out preceded by feeling hot, cold sweat, palpitations, light headed, nauseated. And while passed out, she get some convulsion-like activity. Per , she is not stiff, she islying ont he floor, and having random jerks in different parts of her body. She is usually out for a couple minutes, then she is out of it. These eisdoes She is being workup with cardiology for palpitations. In the ER, SBP 124/82 CTH with no acute findings PHYSICAL EXAM: Exam performed with help of the nurse/NEENA present with patient on Tele site NEURO: AAOx3, follows commands, no aphasia/dysarthria. PERRL, EOMI, no gaze preference/nystagmus. Face symmetric, Intact facial sensation. Tongue midline. Head turning intact. Sensation: intact to light touch all over, Reports Rt leg and Rt arm feel a little bit swollen. Motor: All extremities antigravity Coordination: FTN intact bilaterally PFSH Medical History (Updated 09/09/24 @ 17:[address] Toño Rodriguez MD) GERD (gastroesophageal reflux disease) Former smoker Irregular heart beat Seizures Migraines Home Medications ?Medication ?Instructions ?Recorded ?Last Taken ?Type duloxetine 60 mg capsule,delayed 1 tab PO DAILY 09/03/15 09/09/24 History release oxaprozin 600 mg tablet 1 - 2 tab PO DAILY PRN Pain 09/03/15 Unknown History rizatriptan 10 mg tablet 10 mg PO DAILY PRN Migraine 09/03/15 Unknown History Symptoms tramadol 50 mg tablet 50 mg PO Q6H PRN FIBROMYALGIA 09/03/15 Unknown History Lactobacillus rhamnosus GG 10 1 ea PO DAILY 09/29/18 09/09/24 History billion cell capsule (Culturelle) aspirin 81 mg tablet,delayed 81 mg PO DAILY 09/09/24 09/09/24 History release atogepant 60 mg tablet (Qulipta) 60 mg PO DAILY MIGRAINE PREVENTION 09/09/24 09/09/24 History azithromycin 250 mg tablet 250 mg PO Q12H 09/09/24 09/08/24 History magnesium oxide 500 mg PO DAILY 09/09/24 09/09/24 History nitroglycerin 0.4 mg sublingual 0.4 mg sublingual Q5M PRN chest 09/09/24 Unknown History tablet pain Allergy/AdvReac Type Severity Reaction Status Date / Time lorazepam (From Ativan) AdvReac HYPER, Verified 06/25/22 09:11 AGITATED Family History (Updated 05/19/22 @ 15:20 by Leigh Dyson) Mother Hypertension Cancer Father Hypertension Diabetes Brother Hypertension Sister Hypertension Grandmother Cancer Uncle Cancer Aunt Cancer Grandmother Cancer Surgical History (Updated 05/19/22 @ 15:15 by Leigh Dyson) History of partial hysterectomy History of appendectomy History of cholecystectomy Social History (Updated 05/19/22 @ 15:16 by Leigh Dyson) Smoking Status: Never smoker alcohol intake: never what type of physical activity do you participate in: walking, running and other details: stretching Vital Signs Vital Signs Vital Signs: 09/09/24 12:00 09/09/24 12:21 09/09/24 13:00 Temperature 98.2 F Temperature Source Pulse Rate 92 87 91 Respiratory Rate 19 H 19 H 19 H Respiratory Effort Respiratory Depth Respiratory Pattern Blood Pressure 131/85 H 125/82 H 133/82 H Blood Pressure Mean 100 96 99 Blood Pressure Source Blood Pressure Position Blood Pressure Location Pulse Ox 98 98 98 Oxygen Delivery Method Room Air Room Air 09/09/24 13:55 09/09/24 14:50 09/09/24 19:30 Temperature 98.7 F Temperature Source Oral Pulse Rate 93 Respiratory Rate 18 Respiratory Effort Normal Non-Labored Normal Non-Labored Respiratory Depth Normal Normal Respiratory Pattern Normal Normal Blood Pressure 130/95 H Blood Pressure Mean 106 Blood Pressure Source Monitor Blood Pressure Position Semi-Fowlers Blood Pressure Location Right Arm Pulse Ox 100 Oxygen Delivery Method Room Air Room Air Room Air 09/09/24 20:40 09/10/24 03:00 09/10/24 03:00 Temperature 97.6 F L 97.7 F L Temperature Source Oral Oral Pulse Rate 93 97 Respiratory Rate 16 16 Respiratory Effort Normal Non-Labored Respiratory Depth Normal Respiratory Pattern Normal Blood Pressure 136/88 H 117/82 H Blood Pressure Mean 104 93 Blood Pressure Source Monitor Monitor Blood Pressure Position Semi-Fowlers Sitting Blood Pressure Location Left Arm Left Arm Pulse Ox 99 99 Oxygen Delivery Method Room Air Room Air Room Air Weight Weight: 58.513 kg Body Mass Index (BMI) 21.4 EEG Results Procedure Details EEG Procedure Details: LILI CONCEPCION is a 49 year old F with a past medical history of , who presents for evaluation of Electroencephalogram on DATE at TIME Lab / Micro Data 09/10/24 06:20 09/10/24 06:20 Labs: Laboratory Results - last 24 hr 09/09/24 09:57: Serum , Qual NEGATIVE 09/09/24 12:11: Troponin T Hi Sens 2 Hr < 6 09/09/24 14:28: Troponin T Hi Sens 4Hr < 6 09/10/24 06:20: WBC 7.6, RBC 3.56 L, Hgb 10.4 L, Hct 32.3 L, MCV 90.7, MCH 29.2, MCHC 32.2, RDW Std Deviation 41.1, RDW Coeff of Maricarmen 12.2, Plt Count 259, MPV 10.0, Immature Gran % (Auto) 0.300, Neut % (Auto) 49.4, Lymph % (Auto) 39.7, Pettis % (Auto) 5.9, Eos % (Auto) 4.3, Baso % (Auto) 0.4, Absolute Neuts (auto) 3.8, Absolute Lymphs (auto) 3.01, Nucleated RBC % 0, Sodium 140, Potassium 3.8, Chloride 107, Carbon Dioxide 24.3, Anion Gap 9, BUN 8, Creatinine 0.53 L, Estim Creat Clear Calc 115.54, Est GFR (MDRD) Non-Af 113, BUN/Creatinine Ratio 14.7, Glucose 96, Calcium 8.8, Phosphorus 3.1, Magnesium 1.7 Active Medications Active Medications Active Medications: Current Medications Generic Name Dose Route Start Last Admin Trade Name Freq PRN Reason Stop Dose Admin Aspirin 81 mg 09/10/24 08:00 09/10/24 08:59 Aspirin E.C. 81 Mg Tablet PO 81 mg BREAKFAST ZHEN Administration Azithromycin 250 mg 09/10/24 10:00 09/10/24 08:59 Azithromycin 250 Mg Tablet PO 09/10/24 23:59 250 mg DAILY ZHEN Administration Clarify Med Order 1 each 09/10/24 10:00 Clarify Order NOTE CLARIFY ZHEN Duloxetine HCl 60 mg 09/10/24 10:00 09/10/24 08:59 Duloxetine Hcl 60 Mg Capsule PO 60 mg DAILY ZHEN Administration Sodium Chloride 1,000 mls @ 75 mls/hr 09/09/24 13:31 09/10/24 03:51 IV 75 mls/hr .[id number] ZHEN Administration Sodium Chloride 100 mls @ 15 mls/hr 09/09/24 13:34 IV .Q6H40M PRN Saline Flush Sodium Chloride 100 mls @ 15 mls/hr 09/09/24 13:34 IV .Q6H40M PRN Additional IVPB Infusion Non-Formulary Medication 60 mg 09/10/24 10:00 Atogepant [Qulipta] PO DAILY ZHEN Sodium Chloride 10 - 40 ml 09/09/24 13:34 0.9% Saline Lock 10 Ml Syringe IV UD PRN SALINE FLUSH Tramadol HCl 50 mg 09/09/24 13:31 09/09/24 14:49 Tramadol 50 Mg Tablet PO 50 mg Q6H PRN Administration FIBROMYALGIA
[2024-09-10 12:30] VITALS: BP 125/90; PULSE 95; RESP 18; TEMP 36.4; O2SAT 99
--- NOTE | 2024-09-10 12:59 | PCM.CONS.C ---
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 She had symptoms of headache initially and then she developed some flushing and diaphoresis With transient nausea followed by syncopal episode. She had similar episodes, 4?5 over the past 15 years. And she has prior evaluation with EEG and MRI. From cardiac standpoint I reviewed the cardiac evaluation which included an EKG current lab results. Overall heart physical exam is normal and the EKG showed normal sinus rhythm. The initial set of lab results were normal. Cardiac care plan; Patient recently had evaluation with stress test and echocardiogram. Cardiac care plan will include monitor as an outpatient with possible longer. Of event monitor versus loop recorder implant to assess for atrial arrhythmias. I will review the result of cardiac evaluation which included stress test and previous echocardiogram. Also noted patient had been seen and followed by the neurologist she had a history of migraine. Patient can be set up for outpatient follow-up with her primary tile layer for continuation of cardiac care. HPI Consult Data Date of Consult: 09/10/24 HPI Narrative Reason for Consultation: Patient had syncopal episode while at work HPI Narrative: LILI CONCEPCION, is a 49 F who presents [facility] Medical History (Updated 09/10/24 @ 13:[address] Toby Mack MD) GERD (gastroesophageal reflux disease) Former smoker Irregular heart beat Seizures Migraines Home Medications ?Medication ?Instructions ?Recorded ?Last Taken ?Type duloxetine 60 mg capsule,delayed 1 tab PO DAILY 09/03/15 09/09/24 History release oxaprozin 600 mg tablet 1 - 2 tab PO DAILY PRN Pain 09/03/15 Unknown History rizatriptan 10 mg tablet 10 mg PO DAILY PRN Migraine 09/03/15 Unknown History Symptoms tramadol 50 mg tablet 50 mg PO Q6H PRN FIBROMYALGIA 09/03/15 Unknown History Lactobacillus rhamnosus GG 10 1 ea PO DAILY 09/29/18 09/09/24 History billion cell capsule (Culturelle) aspirin 81 mg tablet,delayed 81 mg PO DAILY 09/09/24 09/09/24 History release atogepant 60 mg tablet (Qulipta) 60 mg PO DAILY MIGRAINE PREVENTION 09/09/24 09/09/24 History azithromycin 250 mg tablet 250 mg PO Q12H 09/09/24 09/08/24 History magnesium oxide 500 mg PO DAILY 09/09/24 09/09/24 History nitroglycerin 0.4 mg sublingual 0.4 mg sublingual Q5M PRN chest 09/09/24 Unknown History tablet pain Allergy/AdvReac Type Severity Reaction Status Date / Time lorazepam (From Ativan) AdvReac HYPER, Verified 06/25/22 09:11 AGITATED Family History (Updated 05/19/22 @ 15:20 by Leigh Dyson) Mother Hypertension Cancer Father Hypertension Diabetes Brother Hypertension Sister Hypertension Grandmother Cancer Uncle Cancer Aunt Cancer Grandmother Cancer Surgical History (Updated 05/19/22 @ 15:15 by Leigh Dyson) History of partial hysterectomy History of appendectomy History of cholecystectomy Social History (Updated 05/19/22 @ 15:16 by Leigh Dyson) Smoking Status: Never smoker alcohol intake: never what type of physical activity do you participate in: walking, running and other details: stretching Physical Exam Cardio Cardio Narrative: Patient alert orientated seen and evaluated in the ED Cardiac exam S1-S2 regular Chest exam is clear to auscultation bilateral Examination of the abdomen soft Examination lower extremity no lower extremity edema noted. Pedal pulses palpable Risk Stratification Risk Stratification Applicable: No Objective Data Vital Signs: Vital Signs Temp Pulse Resp BP Pulse Ox O2 Del Method 97.6 F L 95 18 125/90 H 99 Room Air 09/10/24 12:30 09/10/24 12:30 09/10/24 12:30 09/10/24 12:30 09/10/24 12:30 09/10/24 12:30 Oxygen Delivery Method Room Air Weight: 129 lb Body Mass Index (BMI) 21.4 Intake & Output: Intake and Output for Last 24 Hours 09/08/24 09/09/24 09/10/24 23:59 23:59 23:59 Intake Total 1547 / 1547 1523.75 / 1523.75 Balance 1547 / 1547 1523.75 / 1523.75 Lab / Micro Data 09/10/24 06:20 09/10/24 06:20 Labs: Laboratory Results - last 24 hr 09/09/24 14:28: Troponin T Hi Sens 4Hr < 6 09/10/24 06:20: WBC 7.6, RBC 3.56 L, Hgb 10.4 L, Hct 32.3 L, MCV 90.7, MCH 29.2, MCHC 32.2, RDW Std Deviation 41.1, RDW Coeff of Maricarmen 12.2, Plt Count 259, MPV 10.0, Immature Gran % (Auto) 0.300, Neut % (Auto) 49.4, Lymph % (Auto) 39.7, Banner % (Auto) 5.9, Eos % (Auto) 4.3, Baso % (Auto) 0.4, Absolute Neuts (auto) 3.8, Absolute Lymphs (auto) 3.01, Nucleated RBC % 0, Sodium 140, Potassium 3.8, Chloride 107, Carbon Dioxide 24.3, Anion Gap 9, BUN 8, Creatinine 0.53 L, Estim Creat Clear Calc 115.54, Est GFR (MDRD) Non-Af 113, BUN/Creatinine Ratio 14.7, Glucose 96, Calcium 8.8, Phosphorus 3.1, Magnesium 1.7 Cardiology Labs/Tests 09/10/24 06:20: WBC 7.6, RBC 3.56 L, Hgb 10.4 L, Hct 32.3 L, MCV 90.7, MCH 29.2, MCHC 32.2, Plt Count 259, MPV 10.0, Immature Gran % (Auto) 0.300, Neut % (Auto) 49.4, Lymph % (Auto) 39.7, Banner % (Auto) 5.9, Eos % (Auto) 4.3, Baso % (Auto) 0.4, Absolute Neuts (auto) 3.8, Nucleated RBC % 0, Sodium 140, Potassium 3.8, Chloride 107, Carbon Dioxide 24.3, Anion Gap 9, BUN 8, Creatinine 0.53 L, Est GFR (MDRD) Non-Af 113, BUN/Creatinine Ratio 14.7, Glucose 96, Calcium 8.8, Phosphorus 3.1, Magnesium 1.7 Rhythm: EKG: ECHO: Stress Test: Cardiac Cath: PCI: CT Surgery: Holter monitor: EPS: PPM: CXR: Chest CT Scan: Radiography Diagnostic Testing: Radiology Impression Brain CT 09/10/24 10:30 IMPRESSION: 1. No acute intracranial findings. 2. Moderate mucosal thickening of the paranasal sinuses. Reading Location: [id number]
[2024-09-10 15:30] VITALS: BP 127/93; PULSE 89; RESP 16; TEMP 36.6; O2SAT 99
[2024-09-10] MEDS: Acetaminophen 325 MG Tablet 650 MG PO (19:54)
[2024-09-10 21:20] VITALS: BP 114/74; PULSE 86; RESP 16; TEMP 36.5; O2SAT 100
[2024-09-11] MEDS: DULoxetine Hcl 60 MG Capsule PO (08:49)
[2024-09-11] MEDS: Aspirin E.C. 81 MG Tablet PO (08:49)
--- NOTE | 2024-09-11 08:54 | DCINST_ITS ---
Discharge Instructions Diet Discharge Diet: No restrictions DC O2, CPAP, BIPAP needs Home O2 Discharge instructions: No Dressing / Incision Discharge Activity: Return to Normal Activity Dressing / Incision Call your doctor if you observe: Fever of 101 or Higher, Shortness of breath, Dizziness, Fainting spells, Swelling in the ankles, Chest pain and Increased palpitations (irregular heartbeat) Follow Up Care Test Results: Test results from this visit will be discussed in further detail at your follow- up appointment, if applicable. Discharge Plan Admission Admit Date/Time: 09/09/24 13:00 Attending Provider: Toño Rodriguez Primary Care Provider: Lokesh Jolley Consulting Providers: Toby Mack; Joaquim Cabrera; Marbella Puga; Lindy Pederson; Jad Dnih; Mckay Chery; Gus Machado; MIKE ANGULO; Adriana Gonzalez; Julianna Benítez; Suleiman Santa; Katiana Whitley Instructions Additional Instructions / Restrictions: Limit triptan use. Discharge Orders/Prescriptions Prescriptions: Continued rizatriptan 10 MG tablet 10 mg PO DAILY PRN (Reason: Migraine Symptoms) tramadol 50 MG tablet 50 mg PO Q6H PRN (Reason: FIBROMYALGIA) oxaprozin 600 MG tablet 1 - 2 tab PO DAILY PRN (Reason: Pain) duloxetine 60 MG capsule 1 tab PO DAILY Culturelle 1 EACH capsule 1 ea PO DAILY aspirin 81 mg tablet,delayed release (DR/EC) 81 mg PO DAILY magnesium oxide 500 mg magnesium tablet 500 mg PO DAILY nitroglycerin 0.4 mg tablet, sublingual 0.4 mg sublingual Q5M PRN (Reason: chest pain) Qulipta 60 mg tablet 60 mg PO DAILY Discontinued azithromycin 250 mg tablet 250 mg PO Q12H Patient Comments: START DATE- 09/05/24 END DATE- 09/10/24 Referrals / Follow Up: [facility] [Other] Lokesh Jolley DO [Primary Care Provider] - Within 1 Week Disposition Disposition (needs filled in before D/C Order can be placed): Home, Self Care
[2024-09-11 09:01] VITALS: BP 104/68; PULSE 90; RESP 18; TEMP 2.4; TEMP 36.4; O2SAT 98
--- NOTE | 2024-09-11 15:10 | PCM.DC.SUM ---
Providers Date of Admission: 09/09/24 Primary Care Physician: Dr. Lokesh Jolley, DO Consultations 09/09/24 12:28 Consult: Cardiology Routine Consulting Provider: Toby Mack Reason for Consult: syncope EMERGENT Consult: Yes MD Notified: Yes Date Notified: 09/09/24 Time Notified: 12:29 Method of Notification: Verbal Comments:: Dr Dexter spoke to pt from ER 09/09/24 13:31 Consult: Cardiology Routine Consulting Provider: Toby Mack Reason for Consult: syncope with arrhythmia EMERGENT Consult: No MD Notified: Yes Date Notified: 09/09/24 Time Notified: 13:03 Method of Notification: ED Physician Initiated 09/10/24 08:12 Neurology [Consult: Tele-Neurology] Routine Consulting Provider: [facility] Reason for Consult: pos seizure, eeg ordered, complex migraine? EMERGENT Consult: No MD Notified: Yes Date Notified: 09/10/24 Time Notified: 08:12 Method of Notification: [facility]sw[facility] Service Nursing Unit Staff Notify [facility] of Tele-Neurology Consult: Yes Reason For Visit: SYNCOPE Diagnosis Discharge Diagnosis (1) Migraines: Status: Acute Code(s): G43.909 - Migraine, unspecified, not intractable, without status migrainosus Medications at Discharge Home Medications duloxetine 60 mg capsule,delayed release 1 tab PO DAILY 09/03/15 oxaprozin 600 mg tablet 1 - 2 tab PO DAILY PRN Pain 09/03/15 rizatriptan 10 mg tablet 10 mg PO DAILY PRN Migraine Symptoms 09/03/15 tramadol 50 mg tablet 50 mg PO Q6H PRN FIBROMYALGIA 09/03/15 Lactobacillus rhamnosus GG 10 billion cell capsule (Culturelle) 1 ea PO DAILY 09/29/18 aspirin 81 mg tablet,delayed release 81 mg PO DAILY 09/09/24 atogepant 60 mg tablet (Qulipta) 60 mg PO DAILY MIGRAINE PREVENTION 09/09/24 magnesium oxide 500 mg PO DAILY 09/09/24 nitroglycerin 0.4 mg sublingual tablet 0.4 mg sublingual Q5M PRN chest pain 09/09/24 Hospital Course Operations None Procedures Electroencephalogram Summary of Care Provided Minutes Spent on Discharge: 33 Hospital Course: Per HPI: LILI CONCEPCION, is a 49 F who presents with concerns of possible seizure versus chest pain in the setting of a flutter. 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 She had some transient nausea and some substernal chest pain and then she had a syncopal episode. Witnesses said she had seizure-like activity and then she recovered in approximately 4 minutes. She did not have any postictal phase and did not have any loss of bowel or bladder function during this episode. She states that she has had an extensive previous history with workups for migraines in the past with MRIs that she needs to be sedated for that Ativan does not work, she said a previous EEG, she was on injections for migraines that did not prevent any migraines and is now on Qulipta with her neurologist at [facility]. She states that the headache that she had before everything progressed is similar to the headache she usually gets and she states that she would normally have taken her rizatriptan however it does make her little bit sleepy so she hesitates to take it at work, she does think that she could continue the day even after taking the rizatriptan. She has been needing to take rizatriptan more frequently recently and she states that her even commented on that. In the ER EKG was unremarkable, she was in sinus tachycardia and 2 troponins were negative less than 6. 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 She also states her previous MRI does not show any major intracranial malformations and her previous EEGs were normal. Hospital Course: 1. Complex migraine with convulsive syncope?49-year-old female has had her migraines extensively worked up in the past with multiple MRIs as well as EEGs all of which were normal, they were demonstrating some vascular abnormality so I did recommend that she follow-up with her neurologist for repeat MRI as she needed to be sedated for the ones here in the hospital and we cannot do conscious sedation on the weekend. She had 3 troponins all of which were negative essentially ruling out ACS, EKGs were nonischemic. She did have recent stress test and echocardiogram, the echocardiogram was normal and the stress test was stopped with a maximum heart rate of 187 and she was having some chest pain during that time, however it was not ischemic and she was having some PVCs. Cardiology was consulted here did not feel that she needed further workup. An EEG was obtained however has not been read by neurology. Patient is aware however she request to be discharged today I discussed with her the plan for discharge she expressed understanding of the risks and benefits of going home and is okay with going home today. She says that she still has some pressure in the back of her head but denies any significant headache. I did caution her on the use of rizatriptan as it can potentiate cardiac issues with its vasoconstriction and she has been taking 3 or 4-week over the last couple of weeks. I did refer her to the headache clinic at [facility], I did not have any contact information but she is aware and will call on Thursday versus reaching out to her primary neurologist to see if they also have a headache clinic to see if we can get these migraines under better control as she states the headache started before her syncope 2. Fibromyalgia, anxiety, depression are chronic medical conditions which complicate her care. Her home medications were continued where appropriate. She also may have had a sinus infection prior to admission so her azithromycin was continued and was completed yesterday. Physical Exam Narrative General: Alert, Oriented x3, Cooperative, No apparent distress HEENT: Atraumatic, PERRLA, EOMI, Normocephalic Oral: Moist Mucosa Neck: Supple, No JVD Lungs: Diminished at the bases, Normal air movement, No rhonchi, No wheeze, No rales Cardiovascular: Regular rate, Regular Rhythm, Normal S1, Normal S2, No murmurs Abdomen: Soft, Non Tender, Non-Distended, No Hepato-splenomegaly Extremities: No edema, Capillary Refill Less than 3 Seconds Skin: No rashes, No breakdown Musculoskeletal: No Tenderness to Palpation of Joints or Extremities Neurological: No focal neurological deficits, Motor Exam 5/5 strength throughout, Sensory exam intact to light touch and pain Psych/Mental Status: Normal Affect, Appropriate Weight / BMI Weight Weight: 129 lb Body Mass Index (BMI) 21.4 ABG / Lab / Microbiology Data 09/10/24 06:20 09/10/24 06:20 D/C Instructions Discharge Diet: No restrictions Call your doctor if you observe: Fever of 101 or Higher, Shortness of breath, Dizziness, Fainting spells, Swelling in the ankles, Chest pain and Increased palpitations (irregular heartbeat) DC O2, CPAP, BIPAP Needs Home O2 Discharge instructions: No Meaningful Use Info Meaningful Use Meaningful Use Diagnoses (Choose all that apply): None applicable Ischemic Stroke Statin Dosing Therapy Reference: STATIN DOSE THERAPY REFERENCE: * Patients > 75 years receive moderate or high dose statin therapy. * Patients 75 years or YOUNGER should receive HIGH intensity statin dose unless contraindicated. You will be required to document reason for non-treatment if statin daily dose does not meet guidelines. HIGH DOSE STATIN THERAPY DAILY Atorvastatin > than or = to 40 mg Rosuvastatin > than or = to 20 mg Amlodipine + Atorvastatin > than or = to 2.5/40 mg Ezetimibe + Simvastatin 10/80 mg Simvastatin 80mg Discharge Plan Admission Admit Date/Time: 09/09/24 13:00 Attending Provider: Toño Rodriguez Primary Care Provider: Lokesh Jolley Consulting Providers: Toby Mack; Joaquim Cabrera; Marbella Puga; Lindy Pederson; Jad Dinh; Mckay Chery; Gus Machado; MIKE ANGULO; Adriana Gonzalez; Julianna Benítez; Suleiman Santa; Katiana Whitley Instructions Additional Instructions / Restrictions: Limit triptan use. Discharge Orders/Prescriptions Prescriptions: Continued rizatriptan 10 MG tablet 10 mg PO DAILY PRN (Reason: Migraine Symptoms) tramadol 50 MG tablet 50 mg PO Q6H PRN (Reason: FIBROMYALGIA) oxaprozin 600 MG tablet 1 - 2 tab PO DAILY PRN (Reason: Pain) duloxetine 60 MG capsule 1 tab PO DAILY Culturelle 1 EACH capsule 1 ea PO DAILY aspirin 81 mg tablet,delayed release (DR/EC) 81 mg PO DAILY magnesium oxide 500 mg magnesium tablet 500 mg PO DAILY nitroglycerin 0.4 mg tablet, sublingual 0.4 mg sublingual Q5M PRN (Reason: chest pain) Qulipta 60 mg tablet 60 mg PO DAILY Discontinued azithromycin 250 mg tablet 250 mg PO Q12H Patient Comments: START DATE- 09/05/24 END DATE- 09/10/24 Referrals / Follow Up: [facility] [Other] Lokesh Jolley DO [Primary Care Provider] - Within 1 Week Disposition Disposition (needs filled in before D/C Order can be placed): Home, Self Care Charges/Coding Visit Charges Inpatient E&M: 29962 Disch Hosp >30min
== END 2024-09-11 09:01 | disposition home or self-care (01) ==
LOC: ED 11:11 → PCU 13:19
PROVIDERS: Admitting Provider Family Medicine; Emergency Provider Emergency Medicine; PCP Preventive Medicine Occupational Medicine; Visit Provider Family Medicine
DX: G43.909 Migraine, unspecified, not intractable, without status migrainosus (principal); R55 Syncope and collapse; F41.9 Anxiety disorder, unspecified; Z79.891 Long term (current) use of opiate analgesic; Z90.710 Acquired absence of both cervix and uterus; Z79.82 Long term (current) use of aspirin; Z82.49 Family history of ischemic heart disease and other diseases of the circulatory system; I10 Essential (primary) hypertension; I49.3 Ventricular premature depolarization; M79.7 Fibromyalgia; Z90.49 Acquired absence of other specified parts of digestive tract; F32.A Depression, unspecified; J32.9 Chronic sinusitis, unspecified; K21.9 Gastro-esophageal reflux disease without esophagitis; R07.9 Chest pain, unspecified
CPT/HCPCS: 36415; 70470; 71045; 80048; 83735; 83880; 84100; 84443; 84484; 84703; 85025; 85379; 85610; 85730; 93005; 95819; 96361; 96374; 99221; 99285; Q9967; A4216; G0378

== ENCOUNTER → 2024-11-03 | Outpatient (CLI) | payer BC, SELFPAY ==
--- NOTE | 2024-11-03 12:30 | CT_ITS ---
PROCEDURE: LIMITED CHEST CT CARDIAC ONLY REASON FOR EXAM: CP TECHNIQUE: Supine chest CT without contrast. One or more dose reduction techniques were used (e.g., Automated exposure control, adjustment of the mA and/or kV according to patient size, use of iterative reconstruction technique). COMPARISON: None FINDINGS: Hardware: None Lymph nodes: None Heart and Vasculature: Normal heart size. No pericardial effusion. Coronary Artery Calcifications: Absent Lungs and Airways: The lungs are normally expanded and clear. No septal thickening nodules or abnormal pulmonary opacities. Pleura: No pleural effusion. Upper Abdomen: Unremarkable Bones: Unremarkable CT/Limited Chest CT Cardiac Only IMPRESSION: Coronary artery calcification (CAC) is is absent Reading Location: [place] [id number]
[2024-11-03 12:54] VITALS: BP 153/94; PULSE 93; RESP 18; O2SAT 100; BMI 20.6
[2024-11-03 13:04] VITALS: BP 153/94; PULSE 97
[2024-11-03] MEDS: 0.9% Saline Lock 10 ML Syringe IV (13:04)
[2024-11-03] MEDS: Metoprolol Tartrate 5 MG/5 ML Vial IV ×2 (13:04→13:12)
[2024-11-03 13:12] VITALS: BP 134/84; PULSE 80
[2024-11-03] MEDS: Nitroglycerin SL (ED/IMG/CATH) 0.4 MG TABLET SL (13:30)
[2024-11-03 13:35] VITALS: BP 130/85; PULSE 89; RESP 18; O2SAT 100
--- NOTE | 2024-11-04 07:36 | CA.SCORE ---
Calcium Scoring Date of Study:: 11/03/24 Indications Indications: cp Coronary Calcium Scoring: High-resolution Computed Tomographic imaging of the chest was performed on [ 11/03/24], with particular attention paid to the coronary arteries. Images from the examination were analyzed for the presence and extent of coronary artery calcification , using coronary calcium quantification software. The patient tolerated the procedure well and there were no complications. The results of the coronary calcification analysis are provided below. Findings Coronary Artery Left Main (LM): 0 Left Anterior Descending (LAD): 0 Left Circumflex (LCX): 0 Right Coronary Artery (RCA): 0 Total Agatston Score: 0 Percentile Rankin% Calcium Scoring Interpretation: Different methods to categorize the overall amount of coronary plaque. Overall amount CAC SIS Visual of coronary plaque P1 Mild -100 <2 1-2 vessels with mild amount of plaque P2 Moderate 101-300 3-4 1-2 vessels with moderate amount, 3 vessels with mild amount of plaque P3 Severe 301-999 5-7 3 vessels with moderate amount, 1 vessel with severe amount of plaque P4 Extensive >1000 >8 2-3 vessels with severe amount of plaque Conclusion: No atherosclerotic plaque.
== END | disposition home or self-care (01) ==
LOC: CT 12:27
PROVIDERS: Referring Provider Internal Medicine Cardiovascular Disease; Visit Provider Internal Medicine Cardiovascular Disease
DX: R07.89 Other chest pain (principal)
CPT/HCPCS: 75571; 75574; 76380; 96374; Q9967; A4216

== ENCOUNTER → 2025-05-04 | Outpatient (CLI) | payer BC, SELFPAY ==
--- NOTE | 2025-05-04 13:37 | RAD_ITS ---
PROCEDURE: FOOT MIN 3 VIEWS 05/04/2025 REASON FOR EXAM: PT FELL YESTERDAY 4TH/5TH MT BRUISING AND PAIN, ALSO BACK BY HEEL TECHNIQUE: Procedure Code: RADFO Modality: DX Procedure: FOOT MIN 3 VIEWS Laterality: Left COMPARISON: None FINDINGS: There is no evidence of fracture or dislocation. There are no significant joint space abnormalities. There are no soft tissue abnormalities. RAD/Foot min 3 Views IMPRESSION: NO ACUTE FRACTURE OR DISLOCATION. Reading Location: [place] [id number]
== END | disposition home or self-care (01) ==
LOC: MTRAD 13:35
PROVIDERS: Referring Provider Family Medicine; Visit Provider Family Medicine
DX: S99.922A Unspecified injury of left foot, initial encounter (principal)
CPT/HCPCS: 73630